=== PATIENT | male | born 1965 | race Caucasian/White ===

== ENCOUNTER → 2017-12-14 09:22 | Outpatient (CLI) | payer OTHER, SELFPAY ==
[2017-12-14 09:30] LABS: Bacteria 0 SEEN /hpf (None Seen); Mucous, Urine 0 SEEN /hpf (<or=2+); Squamous Epithelial Cells - UA 0 SEEN /hpf (0-5)
[2017-12-14 12:40] LABS: Absolute Lymphocyte Count 2.87 X10^3/ul (0.83-4.51); Absolute Neutrophil Count 2.9 X10^3/uL (2.0-7.7); Basophil# 0.03 X10^3/uL; Basophil% 0.5 % (0-1); Eosinophil# 0.11 X10^3/uL; Eosinophils% 1.8 % (0-5); Hemoglobin 15.3 g/dl (13.0-16.5); Lymphocyte # 2.87 X10^3/ul (4.0); Lymphocyte % 45.7 % (19-41); Mean Corp Hgb Conc 34.8 g/gl (32-36); Mean Corpuscular Hgb 32.1 pg (27.0-32.0); Mean Corpuscular Volume 92.2 fL (80-94); Mean Platelet Vol. 12.1 fl (6.2-12.0); Monocyte# 0.35 X10^3/uL; Monocyte% 5.6 % (0-10); Neutrophil % 46.1 % (47-70); Platelet Count 194 K/mm3 (150-450); RBC Distribution Width CV 12.7 % (11.6-14.6); RBC Distribution Width SD 42.5 fl (35.1-43.9); Red Blood Count 4.77 M/mm3 (4.6-6.2); White Blood Count 6.3 K/mm3 (4.4-11.0)
[2017-12-14 12:44] LABS: Color, Urine Yellow (Yellow); Glucose, Dipstick 1000 mg/dl (Normal); Ketone-Dipstick 15 mg/dl (Negative); Leukocyte Esterase-Dipstick Negative /ul (Negative); Nitrite-Dipstick Negative (Negative); Occult Blood-Urine 10 /ul (Negative); Protein-Dipstick 100 mg/dl (Negative); Specific Gravity, Urine 1.025 (1.002-1.030); Urine Bilirubin Dipstick Negative (Negative); Urine Clarity Clear (Clear); Urine Urobilinogen Normal (Normal)
[2017-12-14 13:06] LABS: Vitamin B12 248 pg/mL (211-911)
[2017-12-14 13:12] LABS: POSITIVE COUNT NO; POSITIVE DIFFERENTIAL NO; POSITIVE MORPHOLOGY NO
[2017-12-14 13:15] LABS: AST(SGOT) 21 U/L (15-37); Alanine Aminotransfer ALT/SGPT 43 U/L (16-61); Albumin, Serum 3.9 g/dL (3.2-5.0); Alkaline Phosphatase 86 U/L (45-117); Anion Gap 8 (5-15); BUN 16 mg/dL (7-18); Calcium,Total 8.9 mg/dL (8.5-10.1); Chloride 101 mmol/L (98-107); Cholesterol 139 mg/dL (200); Creatinine, Serum 0.89 mg/dL (0.70-1.30); EST Glomerular Filtration Rate 96 mL/min (>60); Est Glom Filt Rate - Afr Amer 116 mL/min (>60); Globulin 3.9 g/dL (2.2-4.2); Glucose 275 mg/dL (74-106); High Density Lipoprotein 23 mg/dL; PSA,Total - Annual Screen 0.81 ng/mL (0.00-4.00); Potassium 4.3 mmol/L (3.5-5.1); Protein, Total 7.8 g/dL (6.4-8.2); Sodium Level 137 mmol/L (136-145); Thyroid Stim Hormone (TSH) 2.68 uIU/mL (0.358-3.74); Triglycerides 792 mg/dL
[2017-12-14 13:27] LABS: Transitional Epithelial - Ur 0-5 SEEN /hpf (0-5); White Blood Cells 0-5 SEEN /hpf (0-5)
[2017-12-14 13:30] LABS: Red Blood Cells-Urine 0 SEEN /hpf (0-5)
[2017-12-14 13:55] LABS: Hemoglobin A1c 9.5 % (4.2-6.3)
[2017-12-14 13:57] LABS: Microalbumin:Creatinine Ratio 370.1 mg/g CRE (<30 mg/g CRE)
[2017-12-27 12:20] LABS: Vitamin B1, Thiamine 152.1 nmol/L (66.5-200.0)
== END ==
PROVIDERS: Family Provider Family Medicine; PCP Family Medicine; Visit Provider Family Medicine
DX: E11.9 Type 2 diabetes mellitus without complications (principal); E78.5 Hyperlipidemia, unspecified; I10 Essential (primary) hypertension; Z12.5 Encounter for screening for malignant neoplasm of prostate; G62.9 Polyneuropathy, unspecified
CPT/HCPCS: 80053; 80061; 81001; 82043; 82570; 82607; 83036; 84153; 84425; 84443; 85025; G0103

== ENCOUNTER → 2018-03-25 09:54 | Outpatient (CLI) | payer OTHER, SELFPAY ==
[2018-03-25 09:59] LABS: Bacteria 0 SEEN /hpf (None Seen); Mucous, Urine 0 SEEN /hpf (<or=2+); Red Blood Cells-Urine 0 SEEN /hpf (0-5); Squamous Epithelial Cells - UA 0 SEEN /hpf (0-5); White Blood Cells 0 SEEN /hpf (0-5)
[2018-03-25 13:00] LABS: Hemoglobin A1c 9.2 % (4.2-6.3); Vitamin B12 252 pg/mL (211-911)
[2018-03-25 13:10] LABS: Absolute Lymphocyte Count 3.56 X10^3/ul (0.83-4.51); Absolute Neutrophil Count 3.8 X10^3/uL (2.0-7.7); Basophil# 0.03 X10^3/uL; Basophil% 0.4 % (0-1); Eosinophil# 0.15 X10^3/uL; Eosinophils% 1.9 % (0-5); Hematocrit 42.5 % (40-54); Hemoglobin 14.1 g/dl (13.0-16.5); Lymphocyte # 3.56 X10^3/ul (4.0); Lymphocyte % 44.8 % (19-41); Mean Corp Hgb Conc 33.2 g/gl (32-36); Mean Corpuscular Hgb 31.1 pg (27.0-32.0); Mean Corpuscular Volume 93.8 fL (80-94); Mean Platelet Vol. 12.3 fl (6.2-12.0); Neutrophil % 47.8 % (47-70); Platelet Count 233 K/mm3 (150-450); RBC Distribution Width SD 44.4 fl (35.1-43.9); Red Blood Count 4.53 M/mm3 (4.6-6.2)
[2018-03-25 13:15] LABS: ALB/GLOB Ratio 1.1 RATIO (0.9-2.4); AST(SGOT) 16 U/L (15-37); Alanine Aminotransfer ALT/SGPT 33 U/L (16-61); Alkaline Phosphatase 53 U/L (45-117); Anion Gap 11 (5-15); BUN 17 mg/dL (7-18); BUN/Creat Ratio 18.6 RATIO (10-20); Calcium,Total 9.1 mg/dL (8.5-10.1); Chloride 104 mmol/L (98-107); Cholesterol 109 mg/dL (200); Creatinine, Serum 0.91 mg/dL (0.70-1.30); EST Glomerular Filtration Rate 93 mL/min (>60); Est Glom Filt Rate - Afr Amer 113 mL/min (>60); Globulin 3.8 g/dL (2.2-4.2); Glucose 130 mg/dL (74-106); High Density Lipoprotein 25 mg/dL; Phosphorus 3.4 mg/dL (2.5-4.9); Potassium 4.2 mmol/L (3.5-5.1); Protein, Total 7.8 g/dL (6.4-8.2); Sodium Level 142 mmol/L (136-145); Thyroid Stim Hormone (TSH) 4.12 uIU/mL (0.358-3.74); Triglycerides 157 mg/dL; Very Low Density Lipoprotein 31 mg/dL (5-40)
[2018-03-25 13:18] LABS: POSITIVE COUNT NO; POSITIVE DIFFERENTIAL NO; POSITIVE MORPHOLOGY NO
[2018-03-25 13:30] LABS: Microalbumin,Random Urine 82.9 mg/L (NO RANGE EST.); Microalbumin:Creatinine Ratio 42.7 mg/g CRE (<30 mg/g CRE)
[2018-03-25 14:17] LABS: Color, Urine Yellow (Yellow); Glucose, Dipstick Normal (Normal); Ketone-Dipstick Negative (Negative); Leukocyte Esterase-Dipstick Negative /ul (Negative); Nitrite-Dipstick Negative (Negative); Occult Blood-Urine Negative /ul (Negative); Protein-Dipstick 15 mg/dl (Negative); Specific Gravity, Urine 1.025 (1.002-1.030); Urine Bilirubin Dipstick Negative (Negative); Urine Clarity Sl. Cloudy (Clear); Urine Urobilinogen Normal (Normal)
[2018-03-28 08:17] LABS: Vitamin B1, Thiamine 124.2 nmol/L (66.5-200.0)
== END ==
PROVIDERS: Family Provider Family Medicine; PCP Family Medicine; Visit Provider Family Medicine
DX: E11.9 Type 2 diabetes mellitus without complications (principal); E78.5 Hyperlipidemia, unspecified; I10 Essential (primary) hypertension; Z12.5 Encounter for screening for malignant neoplasm of prostate; E11.40 Type 2 diabetes mellitus with diabetic neuropathy, unspecified
CPT/HCPCS: 36415; 80053; 80061; 81001; 82043; 82570; 82607; 83036; 84100; 84425; 84443; 85025

== ENCOUNTER → 2018-03-27 10:19 | Outpatient (CLI) | payer OTHER, SELFPAY ==
[2018-03-27 12:07] LABS: T4 Free Direct 0.92 ng/dL (0.76-1.46)
[2018-03-29 08:55] LABS: Anti-Thyroglobulin AB < 1.0 IU/mL (0.0-0.9); Thyroglobulin, Serum Qt. 29.1 ng/mL (1.4-29.2); Thyroid Peroxidase AB 10 IU/mL (0-34)
== END ==
PROVIDERS: Family Provider Family Medicine; PCP Family Medicine; Visit Provider Family Medicine
DX: R79.89 Other specified abnormal findings of blood chemistry (principal)
CPT/HCPCS: 36415; 84432; 84439; 86376; 86800

== ENCOUNTER → 2020-10-15 09:51 | Outpatient (CLI) | payer OTHER, SELFPAY ==
--- NOTE | 2020-10-15 09:55 | US_ITS ---
STUDY: RENAL ULTRASOUND - COMPLETE REASON FOR EXAM: Male, 55 years old. URINARY HESITANCY TECHNIQUE: Ultrasound evaluation of the kidneys was performed with real-time and static montgomery-scale imaging. COMPARISON: None. FINDINGS: RIGHT KIDNEY: Normal location of the right kidney, which is normal in size. The right kidney measures 13.8 cm x 6 cm x 5.4 cm. There is a normal cortex of the right kidney. The renal cortex measures 1.5 cm. There is no right renal mass or cyst. There are no right renal calculi. There is no right hydronephrosis. DISTAL RIGHT URETER: There is non-visualization of the distal right ureter. There is no demonstrated right ureterovesical junction calculus. There is a visualized right ureteral jet. LEFT KIDNEY: Normal location of the left kidney, which is normal in size. The left kidney measures 13.3 cm x 7.17 x 5.8 cm. There is a normal cortex of the left kidney. The renal cortex measures 2.5 cm. There is no left renal mass or cyst. There are no left renal calculi. There is no left hydronephrosis. DISTAL LEFT URETER: There is non-visualization of the distal left ureter. There is no demonstrated left ureterovesical junction calculus. There is a visualized left ureteral jet. BLADDER: The distended urinary bladder has a volume of 330 ml. The empty urinary bladder has a volume of 15 ml. There is a normal wall thickness of the distended urinary bladder. There is no demonstrated mass within the urinary bladder. There are no demonstrated bladder calculi. US/Kidney and Bladder IMPRESSION: Normal ultrasound of the kidneys and urinary bladder. Electronically Signed: Jd Chacon MD at 15:14 EDT , Service support ,
== END ==
PROVIDERS: PCP Nurse Practitioner; Referring Provider Nurse Practitioner; Visit Provider Nurse Practitioner
DX: R39.11 Hesitancy of micturition (principal)
CPT/HCPCS: 76770

== ENCOUNTER → 2021-04-05 10:54 | Outpatient (CLI) | payer OTHER, SELFPAY ==
[2021-04-05 12:41] LABS: ALB/GLOB Ratio 0.9 RATIO (0.9-2.4); AST(SGOT) 9 U/L (15-37); Alanine Aminotransfer ALT/SGPT 20 U/L (16-61); Albumin, Serum 3.8 g/dL (3.2-5.0); Alkaline Phosphatase 107 U/L (45-117); Anion Gap 3 (5-15); BUN 10 mg/dL (7-18); BUN/Creat Ratio 14.3 RATIO (10-20); Calcium,Total 9.3 mg/dL (8.5-10.1); Chloride 100 mmol/L (98-107); Cholesterol 189 mg/dL (200); EST Glomerular Filtration Rate 126 mL/min (>60); Est Glom Filt Rate - Afr Amer 152 mL/min (>60); Globulin 4.2 g/dL (2.2-4.2); Glucose 320 mg/dL (74-106); High Density Lipoprotein 34 mg/dL; Potassium 4.5 mmol/L (3.5-5.1); Sodium Level 135 mmol/L (136-145); T4 Free Direct 1.13 ng/dL (0.76-1.46); Thyroid Stim Hormone (TSH) 1.93 uIU/mL (0.358-3.74); Triglycerides 222 mg/dL; Very Low Density Lipoprotein 44 mg/dL (5-40)
[2021-04-05 15:53] LABS: Microalbumin:Creatinine Ratio 310.9 mg/g CRE (<30 mg/g CRE)
== END ==
PROVIDERS: PCP Nurse Practitioner; Referring Provider Internal Medicine Endocrinology, Diabetes & Metabolism; Visit Provider Internal Medicine Endocrinology, Diabetes & Metabolism
DX: E11.9 Type 2 diabetes mellitus without complications (principal); R94.6 Abnormal results of thyroid function studies
CPT/HCPCS: 36415; 80053; 80061; 82043; 82570; 84439; 84443

== ENCOUNTER 2021-07-05 18:51 | Inpatient (IN) | payer OTHER, SELFPAY ==
[2021-07-05] VITALS (14 sets, daily range): BP systolic 106–151; BP diastolic 67–92; PULSE 80–102; RESP 16–28; TEMP 36.6–38.3; O2SAT 73–92; BMI 33.8; BMI 32.4
--- NOTE | 2021-07-05 18:59 | EKG12_ITS ---
Test Reason : SOB Blood Pressure : / mmHG Vent. Rate : 100 BPM Atrial Rate : 100 BPM P-R Int : 144 ms QRS Dur : 110 ms QT Int : 348 ms P-R-T Axes : 053 -37 066 degrees QTc Int : 448 ms Normal sinus rhythm Left axis deviation Possible LAFB Poor R wave progression Abnormal ECG Confirmed by ANYA RUBI, IFTIKHAR ([id number]), online editor BRENT SHANNON ([id number]) on 07/11/2021 9:14:35 AM Referred By: ROSARIO Confirmed By:IFTIKHAR JOYNER MD
--- NOTE | 2021-07-05 18:59 | RAD_ITS ---
STUDY: X-RAY CHEST REASON FOR EXAM: Male, 56 years old. Cough TECHNIQUE: Single AP portable view of the chest. COMPARISON: None. FINDINGS: There are monitoring devices. There are moderate patchy airspace opacities of the bilateral lungs. There is no demonstrated pleural abnormality. Normal size heart. Normal mediastinum and viky. Normal visualized pulmonary arteries. Normal visualized aortic arch and descending thoracic aorta. Normal visualized thoracic spine. Normal visualized ribs, clavicles, and shoulders. There is no demonstrated abnormality of the visualized soft tissue structures of the upper abdomen. RAD/Chest 1 View (Portable) IMPRESSION: Bilateral pneumonia. Electronically Signed: Benny Messer MD at 21:08 EST , Service support ,
--- NOTE | 2021-07-05 19:00 | ED.VIS.DYS ---
HPI History of Present Illness Chief Complaint: Shortness of Breath Narrative Narrative: Patient presents from urgent care with low pulse ox with history of COVID-19. He has past medical history of diabetes and hypertension. He states he started feeling weak and tired on , approximately 6 days ago. He and his performed home Covid test on him on Sunday and it was positive. He denies any fever but states he has been more tired, fatigued, and short of breath with an occasional nonproductive cough. He also thinks that he lost taste and smell slightly. While he was at urgent care, his pulse ox was noted to be in the 70s. [facility] Medical History Abnormal results of thyroid function studies Benign hypertension Diabetes Microalbuminuria due to type 2 diabetes mellitus Obesity Home Medications Humalog Mix 50-50 KwikPen U-100 Insulin 100 unit/mL subcutaneous pen See Rx Instructions SUBCUT DAILY #15 ml NS 04/05/21 [Rx Last Taken Unknown] losartan 25 mg tablet tablet PO 04/05/21 [History Last Taken Unknown] metformin 1,000 mg tablet 1,000 mg PO BID #60 tab 04/05/21 [Rx Last Taken Unknown] metformin 500 mg tablet tablet PO 04/05/21 [History Last Taken Unknown] pen needle, diabetic 32 gauge x 32 #60 ea 04/05/21 [Rx Last Taken Unknown] simvastatin 10 mg tablet ea PO 04/05/21 [History Last Taken Unknown] Farxiga 10 mg tablet 10 mg PO DAILY #90 tab NS 05/06/21 [Rx Last Taken Unknown] Allergy/AdvReac Type Severity Reaction Status Date / Time No Known Allergies Allergy Verified 07/05/21 18:51 Social History Smoking Status: Never smoker alcohol intake: never substance use type: does not use what type of physical activity do you participate in: none ROS ROS ED ROS Narrative Constitutional: No fever, no chills. Fatigue, and tiredness. HEENT: No sore throat. No neck pain. No loss of vision. No rhinorrhea. Mild loss of taste and smell. Cardiovascular: No chest pain. No palpitations. No pedal edema. Respiratory: Occasional cough, positive shortness of breath. Abdominal: No abdominal pain. No nausea. No vomiting. Genitourinary: No dysuria. No hematuria. Musculoskeletal: No myalgias. No arthralgias. Neurologic: No headaches. No dizziness. No lightheadedness. Generalized weakness. Skin: No rash. No change in color. Psychiatric: No depression. No anxiety. EXAM Physical Exam Narrative Exam Narrative: Afebrile. Vital signs noted. HEENT: Normocephalic. Atraumatic. PERRL, EOMI. Neck soft and supple. No point tenderness or step off. Cardiovascular: Regular rate and rhythm. No murmurs, rubs, or gallops appreciated. Respiratory: No tachypnea. Lungs clear to auscultation bilaterally. Diminished breath sounds bilateral bases. Gastrointestinal: Abdomen soft, nontender, with normoactive bowel sounds. No rebound or guarding. Neurological: Awake. Alert. Oriented x3. Nonfocal, nonlateralizing. Skin: No rash. Normal color. No pallor. Musculoskeletal: No pedal edema. Full range of motion extremities. Const Vital Signs: 07/05/21 18:52 07/05/21 18:57 07/05/21 19:02 Temperature 98.9 F Temperature Source Temporal Pulse Rate 102 H Respiratory Rate 18 Respiratory Effort Short of Breath Labored Blood Pressure 151/86 H Blood Pressure Mean 107 Pulse Ox 73 84 Oxygen Delivery Method Room Air Nasal Cannula Nasal Cannula Oxygen Flow Rate (L/min) 11 11 07/05/21 19:28 07/05/21 19:35 07/05/21 19:40 Temperature 101 F H Temperature Source Oral Pulse Rate 94 Respiratory Rate 26 H 28 H 26 H Respiratory Effort Blood Pressure 128/92 H Blood Pressure Mean 104 Pulse Ox 87 90 91 Oxygen Delivery Method High Flow High Flow High Flow Oxygen Flow Rate (L/min) 11 15 15 07/05/21 20:32 07/05/21 20:38 07/05/21 20:40 Temperature 99.8 F H Temperature Source Oral Pulse Rate 91 Respiratory Rate 26 H 26 H 22 H Respiratory Effort Blood Pressure 119/70 Blood Pressure Mean 86 Pulse Ox 86 90 91 Oxygen Delivery Method Nasal Cannula Non-Rebreather Non-Rebreather Oxygen Flow Rate (L/min) 15 15 15 MDM MDM MDM Narrative Medical decision making narrative: Patient was placed on 10 L nasal cannula oxygen with resultant pulse ox in the mid 80s. Comprehensive work-up was pursued. EKG demonstrates sinus tachycardia at [address] changes. His Covid swab is positive. He has neutropenia at 4.0 consistent with Covid. Hemoglobin stable at 15.3, hematocrit 44.9. Platelet count normal at 211. There are atypical lymphocytes. His D-dimer is elevated at 1.19. Sodium slightly low at 134, chloride ninety-seven. He has normal creatinine of 0.96. Lactic acid is elevated at 2.8 as can be seen with Covid. His high-sensitivity troponin is negative at fourteen. He did spike a fever so he was administered Tylenol orally. His chest x-ray shows bilateral pneumonia. Given his elevated D-dimer and hypoxia, I obtained a CTA which shows no evidence of pulmonary embolism or dissection, a bilateral pneumonia. Per RN, he required being placed on a nonrebreather as his 15 L on high flow oxygen nasal cannula was showing his pulse ox in the 80s. He is now satting 91% to 92%. At this point in time, given his high oxygen demand and COVID-19, he had received Decadron 6 mg IV. He will be admitted after discussion with the hospitalist, Dr. Carrillo. Patient is in guarded condition. Lab Data Labs: Laboratory Results - last 24 hr 07/05/21 07/05/21 07/05/21 19:00 19:00 19:00 WBC 4.0 L RBC 4.95 Hgb 15.3 Hct 44.9 MCV 90.7 MCH 30.9 MCHC 34.1 RDW Std Deviation 39.9 RDW Coeff of Mamadou 12.1 Plt Count 211 MPV 10.7 Immature Gran % (Auto) 0.500 Neut % (Auto) 70.9 H Lymph % (Auto) 22.9 Blanco % (Auto) 5.5 Eos % (Auto) 0.0 Baso % (Auto) 0.2 Absolute Neuts (auto) 2.8 Absolute Lymphs (auto) 0.92 Nucleated RBC % 0 Atypical Lymphocytes RARE Platelet Estimate ADEQUATE RBC Morphology N CHROM Anisocytosis RARE Macrocytosis RARE D-Dimer Quant (PE/DVT) 1.19 H* Sodium 134 L Potassium 4.0 Chloride 97 L Carbon Dioxide 24.0 Anion Gap 13 BUN 16 Creatinine 0.96 Estim Creat Clear Calc 85.10 Est GFR (MDRD) Af Amer 105 Est GFR (MDRD) Non-Af 87 BUN/Creatinine Ratio 16.7 Glucose 112 H Lactic Acid Calcium 8.5 Total Bilirubin 0.50 AST 49 H ALT 22 Alkaline Phosphatase 67 Troponin I High Sens 14 Total Protein 8.1 Albumin 2.9 L Globulin 5.2 H Albumin/Globulin Ratio 0.6 L 07/05/21 19:00 WBC RBC Hgb Hct MCV MCH MCHC RDW Std Deviation RDW Coeff of Mamadou Plt Count MPV Immature Gran % (Auto) Neut % (Auto) Lymph % (Auto) Blanco % (Auto) Eos % (Auto) Baso % (Auto) Absolute Neuts (auto) Absolute Lymphs (auto) Nucleated RBC % Atypical Lymphocytes Platelet Estimate RBC Morphology Anisocytosis Macrocytosis D-Dimer Quant (PE/DVT) Sodium Potassium Chloride Carbon Dioxide Anion Gap BUN Creatinine Estim Creat Clear Calc Est GFR (MDRD) Af Amer Est GFR (MDRD) Non-Af BUN/Creatinine Ratio Glucose Lactic Acid 2.8 H* Calcium Total Bilirubin AST ALT Alkaline Phosphatase Troponin I High Sens Total Protein Albumin Globulin Albumin/Globulin Ratio ABG Data ABG results: ABG 07/05/21 19:11 Specimen Type ART Sample Site R Radial pH 7.44 Bicarbonate Actual 21.8 L Total CO2 23 Base Excess -2 O2 Saturation 91 L ABG pCO2 32.1 L ABG pO2 57 L Justin Test Positive O2 Delivery Device Cannula Liter Flow 11.0 Radiography Diagnostic Testing: Clinical Impression(s) from Imaging Studies Chest X-Ray 07/05/21 18:59 IMPRESSION: Bilateral pneumonia. Electronically Signed: Benny Messer MD at 21:08 EST , Service support , Chest CTA 07/05/21 20:04 IMPRESSION: CTA chest examination, without a demonstrated pulmonary embolism or arterial dissection. Bilateral pneumonia. Electronically Signed: Benny Messer MD at 21:15 EST , Service support , Critical Care Time Critical care time (excluding procedures): 30-74 minutes (32), Including time spent:, Discussing w/Patient &/or Family/School Childcare Attendant, Discussing w/Consultants and Arranging Admission or Transfer Discharge Plan Triage Chief Complaint: Shortness of Breath ED Provider: Brent Obregon Dx/Rx/DC Orders Prescriptions: No Action metformin 500 mg tablet PO RF: 0 simvastatin 10 mg tablet PO RF: 0 losartan 25 mg tablet PO RF: 0 Humalog Mix 50-50 KwikPen 100 unit/mL (50-50) insulin pen See Rx Instructions subcut DAILY Qty: 15 RF: 5 (DME) pen needle, diabetic [BD Ultra-Fine Eliana Pen Needle] 32 gauge x 5/32 needle See Rx Instructions .ROUTE .MEDSUPPLY Qty: 60 RF: 6 metformin 1,000 mg tablet 1,000 mg PO BID Qty: 60 RF: 6 Farxiga 10 mg tablet 10 mg PO DAILY Qty: 90 RF: 3 Primary Care Provider: Care Physician,No Primary
[2021-07-05 19:16] LABS: Allen Test Positive; Base Excess -2 mmol/L (-2 to +2); Bicarbonate 21.8 mmol/L (22-26); Blood Gas Specimen Type ART; O2 Delivery Device Cannula; PO2 57 mmHG (75-100); SITE R Radial; SO2 91 % (95-99); Total Carbon Dioxide 23 mmol/L; pCO2 32.1 mmHg (35-45); pH 7.44 (7.35-7.45)
[2021-07-05] MEDS: dexAMETHasone 10 MG/ML Vial 6 MG IV (19:39)
[2021-07-05 19:40] LABS: ALB/GLOB Ratio 0.6 RATIO (0.9-2.4); AST(SGOT) 49 U/L (15-37); Alanine Aminotransfer ALT/SGPT 22 U/L (16-61); Albumin, Serum 2.9 g/dL (3.2-5.0); Alkaline Phosphatase 67 U/L (45-117); Anion Gap 13 (5-15); BUN 16 mg/dL (7-18); BUN/Creat Ratio 16.7 RATIO (10-20); Calcium,Total 8.5 mg/dL (8.5-10.1); Chloride 97 mmol/L (98-107); Creatinine, Serum 0.96 mg/dL (0.70-1.30); EST Glomerular Filtration Rate 87 mL/min (>60); Est Glom Filt Rate - Afr Amer 105 mL/min (>60); Globulin 5.2 g/dL (2.2-4.2); Glucose 112 mg/dL (74-106); Protein, Total 8.1 g/dL (6.4-8.2); Sodium Level 134 mmol/L (136-145); Troponin-I HS 14 pg/mL (3.0-78.0)
[2021-07-05 19:50] LABS: Absolute Lymphocyte Count 0.92 X10^3/uL (0.83-4.51); Absolute Neutrophil Count 2.8 X10^3/uL (2.0-7.7); Basophil# 0.01 X10^3/uL; Basophil% 0.2 % (0-1); Hematocrit 44.9 % (40-54); Hemoglobin 15.3 g/dL (13.0-16.5); Lactic Acid 2.8 mmol/L (0.4-1.9); Lymphocyte # 0.92 X10^3/ul (0.83-4.51); Lymphocyte % 22.9 % (19-41); Mean Corp Hgb Conc 34.1 g/dL (32-36); Mean Corpuscular Hgb 30.9 pg (27.0-32.0); Mean Corpuscular Volume 90.7 fL (80-94); Mean Platelet Vol. 10.7 fl (6.2-12.0); Monocyte# 0.22 X10^3/uL; Monocyte% 5.5 % (0-10); NRBC Flagged by Analyzer 0 % (0-5); Neutrophil # 2.84 X10^3/uL (2.7-7.7); Neutrophil % 70.9 % (47-70); POSITIVE MORPHOLOGY YES; Platelet Count 211 K/mm3 (150-450); RBC Distribution Width CV 12.1 % (11.6-14.6); RBC Distribution Width SD 39.9 fl (35.1-43.9); Red Blood Count 4.95 M/mm3 (4.6-6.2)
[2021-07-05 20:00] LABS: Differential Indicated SCAN CRITERIA MET
[2021-07-05 20:03] LABS: D-Dimer Quantitative (DVT/PE) 1.19 FEU/ug/m (0.27-0.49)
--- NOTE | 2021-07-05 20:04 | CT_ITS ---
STUDY: CTA CHEST REASON FOR EXAM: Male, 56 years old. Hypoxia RADIATION DOSAGE (If Supplied By Facility): CTDIvol = ( 11.42 ) mGy, DLP = (497.19 ) mGycm TECHNIQUE: The examination was performed with the intravenous administration of 100mL Isovue-370. Post-processing of the angiographic images was performed, with multiplanar reformation and 3D reconstruction. Individualized dose optimization techniques were used for this CT. COMPARISON: Chest x-ray FINDINGS: Normal enhancement of the main pulmonary artery and right and left pulmonary arteries. There is limited enhancement of the bilateral peripheral pulmonary arteries. There is no demonstrated pulmonary embolism. Normal thoracic aorta and visualized great vessels. There is no demonstrated aortic dissection. Normal heart and pericardium. Normal mediastinum. Normal hilar regions. Normal visualized trachea and bronchi. The lungs are well expanded. There are moderately severe patchy groundglass and airspace opacities of the lungs. Normal pleura. Normal chest wall structures. There are degenerative changes of thoracic spine. There is moderate splenomegaly. CT/CTA Chest W/WO Contrast IMPRESSION: CTA chest examination, without a demonstrated pulmonary embolism or arterial dissection. Bilateral pneumonia. Electronically Signed: Benny Messer MD at 21:15 EST , Service support ,
[2021-07-05] MEDS: Acetaminophen 325 MG Tablet 650 MG PO (20:30)
[2021-07-05 20:49] LABS: Platelet Estimate ADEQUATE (ADEQ); Red Cell Morphology N CHROM NORMAL (NORM C&C)
[2021-07-05 20:50] LABS: Anisocytosis RARE; Atypical Lymphocyte RARE %; Macrocytosis RARE
--- NOTE | 2021-07-05 22:01 | HP.PCM.HOS_ITS ---
HPI - General General Date of Admission: 07/05/21 HPI Narrative BRET FISHMAN, is a 56 M with a significant history of hypertension and diabetes mellitus who presents with Covid-like symptoms. His symptoms started around June. His symptoms has progressively been worsening. He describes his symptoms as lethargy, fatigue, headache, shortness of breath, dry cough, dysgeusia. He is unsure of anosmia. He reports muscle aches. On the day of presentation he went to the urgent care and his temperature at the urgent care was about 101 Fahrenheit. Also his oxygen saturation at the urgent care was in the 70s. At the emergency department patient required a nonrebreather mask Patient is unvaccinated against COVID-19 virus. [facility] Medical History Abnormal results of thyroid function studies Benign hypertension Diabetes Microalbuminuria due to type 2 diabetes mellitus Obesity Home Medications losartan 25 mg tablet 25 tablet PO DAILY 04/05/21 [History Last Taken Unknown] pen needle, diabetic 32 gauge x 32 #60 ea 04/05/21 [Rx Last Taken Unknown] simvastatin 10 mg tablet 10 ea PO DAILY 04/05/21 [History Last Taken Unknown] dapagliflozin [Farxiga] 10 mg PO DAILY 07/05/21 [History Last Taken Unknown] insulin lispro protamin-lispro [Humalog Mix 50-50 KwikPen] See Rx Instructions SUBCUT DAILY 07/05/21 [History Last Taken Unknown] metformin 1,000 mg PO BID 07/05/21 [History Last Taken Unknown] Allergy/AdvReac Type Severity Reaction Status Date / Time No Known Allergies Allergy Verified 07/05/21 18:51 Family History Other Cancer Diabetes Surgical History no surgical history no surgical history Social History Smoking Status: Never smoker alcohol intake: never substance use type: does not use what type of physical activity do you participate in: none ROS ROS Narrative Constitutional: Reports fever, chills, fatigue, anorexia. Denies change in weight Eyes: Denies blurry vision, change in eye color, change in vision, discharge from eye(s), double vision, erythema, eye pain, loss of vision or other HEENT: Denies abnormal hearing, dysphagia, ear pain, epistaxis, headache(s), hearing loss, nasal congestion, nasal discharge, post nasal drip, sinus pressure, sore throat or other Cardiovascular: Denies chest pain or palpitations. Denies dyspnea on exertion, orthopnea and paroxysmal nocturnal dyspnea Respiratory/Chest: Reports SOB and cough. Gastrointestinal: Denies abdominal pain, coffee ground emesis, constipation, diarrhea, dyspepsia, hematemesis, hematochezia, loose stools, melena, nausea, vomiting or other Genitourinary: Denies burning urination, difficulty urinating, dysuria, h ematuria, nocturia, urinary frequency, urinary hesitancy, urinary incontinence, urinary urgency or other Musculoskeletal: Denies arthralgias, back pain, joint pain, joint stiffness, joint swelling, myalgias, neck pain or other Neurologic: Denies abnormal gait, abnormal speech, confusion, disequilibrium, dizziness, focal weakness, headache(s), numbness, paresthesias, seizure-like activity, seizures, syncope, tingling, tremor(s) or other Psychiatric: Denies anxiety, depression, homicidal ideation, suicidal ideation or other Endocrinology: Denies change in body appearance, cold intolerance, excessive sweating, heat intolerance, polydipsia, polyuria or other Hematologic/Lymphatic: Denies anemia, easy bleeding, easy bruising, lymphadenopathy or other Integumentary: Denies rashes Allergic/Immunologic: Denies rhinitis, hives, eczema, asthma or other Vital Signs Vital Signs Vital Signs: 07/05/21 18:52 07/05/21 18:57 07/05/21 19:02 Temperature 98.9 F Temperature Source Temporal Pulse Rate 102 H Respiratory Rate 18 Respiratory Effort Short of Breath Labored Blood Pressure 151/86 H Blood Pressure Mean 107 Pulse Ox 73 84 Oxygen Delivery Method Room Air Nasal Cannula Nasal Cannula Oxygen Flow Rate (L/min) 11 11 07/05/21 19:28 07/05/21 19:35 07/05/21 19:40 Temperature 101 F H Temperature Source Oral Pulse Rate 94 Respiratory Rate 26 H 28 H 26 H Respiratory Effort Blood Pressure 128/92 H Blood Pressure Mean 104 Pulse Ox 87 90 91 Oxygen Delivery Method High Flow High Flow High Flow Oxygen Flow Rate (L/min) 11 15 15 07/05/21 20:32 07/05/21 20:38 07/05/21 20:40 Temperature 99.8 F H Temperature Source Oral Pulse Rate 91 Respiratory Rate 26 H 26 H 22 H Respiratory Effort Blood Pressure 119/70 Blood Pressure Mean 86 Pulse Ox 86 90 91 Oxygen Delivery Method Nasal Cannula Non-Rebreather Non-Rebreather Oxygen Flow Rate (L/min) 15 15 15 Weight Weight: 101 kg Body Mass Index (BMI) 33.8 Physical Exam Narrative Physical exam: General: Well-nourished, well-developed. Head: Normocephalic, atraumatic, no tenderness Eyes: PERRLA, EOMI ENT, no trauma, moist mucous membranes, no rhinorrhea Neck: Nontender, full range of motion, no spinal tenderness, deformities, step- off CVS: Regular rate and rhythm. S1-S2 present. No murmur, gallop or rub. Respiratory : Tachypnea; using accessory muscles of respiration; Rales. Abdomen: Soft, nontender, nondistended, normal bowel sounds, no masses : Deferred Back: Nontender, no CVA tenderness, no midline spinal tenderness, deformities, step-offs Extremities: Nontender full range of motion, no trauma Skin: Normal color, no trauma, abrasions Neuro: Alert, oriented, cranial nerves II through XII grossly intact. Psychiatry: Normal mood. Normal affect. Not depressed. Not anxious. Results Lab / Micro Data Result Diagrams: 07/05/21 19:00 07/05/21 19:00 Labs: Laboratory Results - last 24 hr 07/05/21 19:00: WBC 4.0 L, RBC 4.95, Hgb 15.3, Hct 44.9, MCV 90.7, MCH 30.9, MCHC 34.1, RDW Std Deviation 39.9, RDW Coeff of Mamadou 12.1, Plt Count 211, MPV 10.7, Immature Gran % (Auto) 0.500, Neut % (Auto) 70.9 H, Lymph % (Auto) 22.9, [place] % (Auto) 5.5, Eos % (Auto) 0.0, Baso % (Auto) 0.2, Absolute Neuts (auto) 2.8, Absolute Lymphs (auto) 0.92, Nucleated RBC % 0, Atypical Lymphocytes RARE, Platelet Estimate ADEQUATE, RBC Morphology N CHROM, Anisocytosis RARE, Macrocytosis RARE 07/05/21 19:00: D-Dimer Quant (PE/DVT) 1.19 H* 07/05/21 19:00: Sodium 134 L, Potassium 4.0, Chloride 97 L, Carbon Dioxide 24.0, Anion Gap 13, BUN 16, Creatinine 0.96, Estim Creat Clear Calc 85.10, Est GFR (MDRD) Af Amer 105, Est GFR (MDRD) Non-Af 87, BUN/Creatinine Ratio 16.7, Glucose 112 H, Calcium 8.5, Total Bilirubin 0.50, AST 49 H, ALT 22, Alkaline Phosphatase 67, Troponin I High Sens 14, Total Protein 8.1, Albumin 2.9 L, Globulin 5.2 H, Albumin/Globulin Ratio 0.6 L 07/05/21 19:00: Lactic Acid 2.8 H* Micro: Microbiology 07/05/21 19:10 Nasal Secretion SARS-CoV-2 Antigen (Rapid) - Final SARS-CoV-2 (COVID 19) ABG Data ABG results: ABG 07/05/21 19:11 Specimen Type ART Sample Site R Radial pH 7.44 Bicarbonate Actual 21.8 L Total CO2 23 Base Excess -2 O2 Saturation 91 L ABG pCO2 32.1 L ABG pO2 57 L Justin Test Positive O2 Delivery Device Cannula Liter Flow 11.0 Radiology Impression Chest X-Ray 07/05/21 18:59 IMPRESSION: Bilateral pneumonia. Electronically Signed: Benny Messer MD at 21:08 EST , Service support , Chest CTA 07/05/21 20:04 IMPRESSION: CTA chest examination, without a demonstrated pulmonary embolism or arterial dissection. Bilateral pneumonia. Electronically Signed: Benny Messer MD at 21:15 EST , Service support , Assessment & Plan Assessment/Plan (1) Respiratory failure: QUALIFIERS: Chronicity: acute Respiratory failure complication: hypoxia Qualified Code(s): J96.01 - Acute respiratory failure with hypoxia (2) Pneumonia due to COVID-19 virus: (3) Obesity: QUALIFIERS: Body mass index: BMI 33.0-33.9 Obesity classification: adult class 1 (BMI 30 - 34.9) Obesity type: due to excess calories Serious obesity comorbidity presence: with serious comorbidity Qualified Code(s): E66.09 - Other obesity due to excess calories; Z68.33 - Body mass index [BMI] 33.0-33.9, adult (4) Diabetes: QUALIFIERS: Diabetes mellitus complication status: with hyperglycemia Diabetes mellitus [employer] insulin use: without alf use Diabetes mellitus type: type 2 Qualified Code(s): E11.65 - Type 2 diabetes mellitus with hyperglycemia PLAN: Acute hypoxemic respiratory failure secondary to SARS- COV 2 Patient oxygen saturation was 73% on room air at the emergency department. Patient was initially placed on high flow oxygen and then was placed on nonrebreather mask. Continue oxygen supplementation. Titrate as necessary. Positive coronavirus test outpatient. Chest x-ray and chest CT was independently interpreted and I agree with radiologist interpretation of bilateral pneumonia. D-dimer was elevated at 1.19; left second inflammation from Covid. Procalcitonin was ordered. Received dexamethasone IV at emergency department. Decadron p.o. ordered. The creatinine clearance is more than 30. AST is mildly elevated at 49. ALT is normal. Liver enzymes appropriate for remdesivir. Remdesivir ordered. Trend CBC and CMP. Lactic acid is elevated at 2.8 likely secondary to hypoxemia and from Metformin use. Trend lactic acid. Tylenol for fever Mucinex ordered Diabetes mellitus Patient with mild hyperglycemia on presentation Basal insulin and Dapagliflozin continued. Hold Metformin. Accu-Chek QA CHS with correction scale insulin ordered. Hypertension Blood pressure is within goal Cozaar continued. Trend blood pressure and adjust blood pressure medications. DVT Prophylaxis: Subcutaneous Lovenox ordered. Charges/Coding Visit Charges Inpatient E&M: 18205 Init Hosp L3
[2021-07-05 23:06] LABS: Reflex Lactate? Y
[2021-07-06] VITALS (18 sets, daily range): BP systolic 107–129; BP diastolic 78–84; PULSE 62–102; RESP 12–33; TEMP 35.8–37.2; O2SAT 87–96
[2021-07-06] MEDS: Enoxaparin 40 MG/0.4 ML Syringe SC ×3 (00:28→20:51)
[2021-07-06] MEDS: guaiFENesin 1,200 MG Tablet 1200 MG PO ×3 (00:28→20:51)
[2021-07-06 00:40] LABS: Lactic Acid 0.9 mmol/L (0.4-1.9)
[2021-07-06 00:45] LABS: Procalcitonin 0.29 ng/mL (0.00-0.09)
[2021-07-06] MEDS: Insulin Lispro 100 UNIT/ML INSULN.PEN SC ×5 (00:49→20:51)
--- NOTE | 2021-07-06 01:05 | NURSING ---
admission completed. pt is alert x 3 & denies c/o pain. no s/s of resp distress. remains on NRB with 02 saturations noted at 87-89%. RT paged, will be placing pt on BIPAP. pt updated on plan.
[2021-07-06 01:41] LABS: Bedside Glucose 193 mg/dL (70-110)
--- NOTE | 2021-07-06 01:55 | NURSING ---
ASLEEP WITH BIPAP ON @ 100%. 02 SATS NOTED AT 97%. WILL CONTINUE TO MONITOR
[2021-07-06 06:50] LABS: Bedside Glucose 208 mg/dL (70-110)
[2021-07-06 07:04] LABS: Absolute Lymphocyte Count 0.58 X10^3/uL (0.83-4.51); Absolute Neutrophil Count 2.1 X10^3/uL (2.0-7.7); Basophil# 0.01 X10^3/uL; Basophil% 0.3 % (0-1); Hematocrit 43.1 % (40-54); Hemoglobin 14.5 g/dL (13.0-16.5); Lymphocyte # 0.58 X10^3/ul (0.83-4.51); Lymphocyte % 20.3 % (19-41); Mean Corp Hgb Conc 33.6 g/dL (32-36); Mean Corpuscular Hgb 30.6 pg (27.0-32.0); Mean Corpuscular Volume 90.9 fL (80-94); Mean Platelet Vol. 10.4 fl (6.2-12.0); Monocyte# 0.18 X10^3/uL; Monocyte% 6.3 % (0-10); NRBC Flagged by Analyzer 0 % (0-5); Neutrophil # 2.06 X10^3/uL (2.7-7.7); Neutrophil % 72.1 % (47-70); POSITIVE DIFFERENTIAL YES; POSITIVE MORPHOLOGY YES; Platelet Count 212 K/mm3 (150-450); RBC Distribution Width CV 12.1 % (11.6-14.6); RBC Distribution Width SD 40.7 fl (35.1-43.9); Red Blood Count 4.74 M/mm3 (4.6-6.2); White Blood Count 2.9 K/mm3 (4.4-11.0)
[2021-07-06 07:08] LABS: Differential Indicated SCAN CRITERIA MET
[2021-07-06 07:26] LABS: ALB/GLOB Ratio 0.5 RATIO (0.9-2.4); AST(SGOT) 45 U/L (15-37); Alanine Aminotransfer ALT/SGPT 25 U/L (16-61); Albumin, Serum 2.6 g/dL (3.2-5.0); Alkaline Phosphatase 59 U/L (45-117); Anion Gap 11 (5-15); BUN 23 mg/dL (7-18); Calcium,Total 8.2 mg/dL (8.5-10.1); Chloride 99 mmol/L (98-107); Creatinine, Serum 0.96 mg/dL (0.70-1.30); EST Glomerular Filtration Rate 87 mL/min (>60); Est Glom Filt Rate - Afr Amer 105 mL/min (>60); Globulin 4.9 g/dL (2.2-4.2); Glucose 217 mg/dL (74-106); Potassium 3.9 mmol/L (3.5-5.1); Protein, Total 7.5 g/dL (6.4-8.2); Sodium Level 137 mmol/L (136-145)
--- NOTE | 2021-07-06 09:09 | PN.HOSP_ITS ---
Subjective Subjective Follow-up on acute respiratory failure/Acute COVID-19 pneumonia: Patient was seen and examined. Overnight, he was put on BiPAP. He was on average time of being seen. Complains of shortness of breath at rest. Objective Data Objective Data Vital Signs: Vital Signs Temp Pulse Resp BP Pulse Ox 98.9 F 75 16 107/78 93 07/06/21 03:48 07/06/21 05:28 07/06/21 05:14 07/06/21 03:48 07/06/21 04:05 Oxygen Flow Rate (L/min) 15 Oxygen Delivery Method Bi-pap Weight: 96.7 kg Body Mass Index (BMI) 32.4 Intake & Output: Intake and Output for Last 24 Hours 07/04/21 07/05/21 07/06/21 23:59 23:59 23:59 Intake Total 250 / 250 Output Total 500 / 500 Balance -250 / -250 Lab / Micro Data Result Diagrams: 07/06/21 06:40 07/06/21 06:40 Labs: Laboratory Results - last 24 hr 07/05/21 19:00: WBC 4.0 L, RBC 4.95, Hgb 15.3, Hct 44.9, MCV 90.7, MCH 30.9, MCHC 34.1, RDW Std Deviation 39.9, RDW Coeff of Mamadou 12.1, Plt Count 211, MPV 10.7, Immature Gran % (Auto) 0.500, Neut % (Auto) 70.9 H, Lymph % (Auto) 22.9, [place] % (Auto) 5.5, Eos % (Auto) 0.0, Baso % (Auto) 0.2, Absolute Neuts (auto) 2.8, Absolute Lymphs (auto) 0.92, Nucleated RBC % 0, Atypical Lymphocytes RARE, Platelet Estimate ADEQUATE, RBC Morphology N CHROM, Anisocytosis RARE, Macrocyto sis RARE 07/05/21 19:00: D-Dimer Quant (PE/DVT) 1.19 H* 07/05/21 19:00: Sodium 134 L, Potassium 4.0, Chloride 97 L, Carbon Dioxide 24.0, Anion Gap 13, BUN 16, Creatinine 0.96, Estim Creat Clear Calc 85.10, Est GFR (MDRD) Af Amer 105, Est GFR (MDRD) Non-Af 87, BUN/Creatinine Ratio 16.7, Glucose 112 H, Calcium 8.5, Total Bilirubin 0.50, AST 49 H, ALT 22, Alkaline Phosphatase 67, Troponin I High Sens 14, Total Protein 8.1, Albumin 2.9 L, Globulin 5.2 H, Albumin/Globulin Ratio 0.6 L 07/05/21 19:00: Lactic Acid 2.8 H* 07/06/21 00:00: Lactic Acid 0.9 07/06/21 00:00: Procalcitonin 0.29 H 07/06/21 00:48: POC Glucose 193 H 07/06/21 06:40: WBC 2.9 L, RBC 4.74, Hgb 14.5, Hct 43.1, MCV 90.9, MCH 30.6, MCHC 33.6, RDW Std Deviation 40.7, RDW Coeff of Mamadou 12.1, Plt Count 212, MPV 10.4, Immature Gran % (Auto) 1.000 H, Neut % (Auto) 72.1 H, Lymph % (Auto) 20.3, [place] % (Auto) 6.3, Eos % (Auto) 0.0, Baso % (Auto) 0.3, Absolute Neuts (auto) 2.1, Absolute Lymphs (auto) 0.58 L, Nucleated RBC % 0, Diff Path Review November07/06/21 06:40: Sodium 137, Potassium 3.9, Chloride 99, Carbon Dioxide 27.0, Anion Gap 11, BUN 23 H, Creatinine 0.96, Estim Creat Clear Calc 85.10, Est GFR (MDRD) Af Amer 105, Est GFR (MDRD) Non-Af 87, BUN/Creatinine Ratio 24.0 H, Glucose 217 H, Calcium 8.2 L, Total Bilirubin 0.40, AST 45 H, ALT 25, Alkaline Phosphatase 59, Total Protein 7.5, Albumin 2.6 L, Globulin 4.9 H, Albumi n/Globulin Ratio 0.5 L 07/06/21 06:41: POC Glucose 208 H Micro: Microbiology 07/05/21 19:10 Nasal Secretion SARS-CoV-2 Antigen (Rapid) - Final SARS-CoV-2 (COVID 19) ABG Data ABG results: ABG 07/05/21 19:11 Specimen Type ART Sample Site R Radial pH 7.44 Bicarbonate Actual 21.8 L Total CO2 23 Base Excess -2 O2 Saturation 91 L ABG pCO2 32.1 L ABG pO2 57 L Justin Test Positive O2 Delivery Device Cannula Liter Flow 11.0 Radiography Diagnostic Testing: Radiology Impression Chest X-Ray 07/05/21 18:59 IMPRESSION: Bilateral pneumonia. Electronically Signed: Benny Messer MD at 21:08 EST , Service support , Chest CTA 07/05/21 20:04 IMPRESSION: CTA chest examination, without a demonstrated pulmonary embolism or arterial dissection. Bilateral pneumonia. Electronically Signed: Benny Messer MD at 21:15 EST , Service support , Physical Exam Narrative Physical exam: General: Alert, Oriented x3, Cooperative, No apparent distress, Well developed HEENT: Atraumatic Oral: Moist Mucosa Neck: Supple Lungs: Clear to auscultation Cardiovascular: HS I+II, regular, no murmurs Abdomen: Bowel Sounds Present, Soft, Non Tender Extremities: No edema Assessment & Plan Assessment/Plan (1) Respiratory failure: QUALIFIERS: Chronicity: acute Respiratory failure complication: hypoxia Qualified Code(s): J96.01 - Acute respiratory failure with hypoxia (2) Pneumonia due to COVID-19 virus: (3) Obesity: QUALIFIERS: Body mass index: BMI 33.0-33.9 Obesity classification: adult class 1 (BMI 30 - 34.9) Obesity type: due to excess calories Serious obesity comorbidity presence: with serious comorbidity Qualified Code(s): E66.09 - Other obesity due to excess calories; Z68.33 - Body mass index [BMI] 33.0-33.9, adult (4) Microalbuminuria due to type 2 diabetes mellitus: (5) Benign hypertension: PLAN: 1. Acute hypoxic respiratory failure secondary to acute COVID-19 pneumonia Patient is currently on Airvo/BiPAP Patient is not vaccinated Admitting chest x-ray showed bilateral infiltrates. CTA chest showed no acute PE Continue on remdesivir, dexamethasone Started on baricitinib by ID Pulmonary consult 2. Type II DM, blood glucose is fairly controlled Continue on Jardiance, Humalog 50-50, insulin sliding scale with blood glucose checks 3. Rest of his chronic medical conditions including hypertension/hyperlipidemia/obesity remained stable Continue on losartan, atorvastatin Charges/Coding Visit Charges Inpatient E&M: 75577 Subs Hosp L3
[2021-07-06] MEDS: dexAMETHasone 4 MG Tablet 6 MG PO (09:12)
[2021-07-06] MEDS: Losartan Potassium 25 MG Tablet PO (09:12)
[2021-07-06] MEDS: Empagliflozin 25 MG Tablet PO (09:13)
[2021-07-06] MEDS: Furosemide 40 MG/4 ML Vial IV (09:17)
[2021-07-06] MEDS: 0.9% Saline Lock 10 ML Syringe IV (09:19)
--- NOTE | 2021-07-06 10:33 | CON.PCM.ID_ITS ---
Assessment & Plan Assessment/Plan (1) Pneumonia due to COVID-19 virus: PLAN: At this time we will continue dexamethasone low-dose 6 mg IV daily. We will also continue remdesivir and DVT prophylaxis. I did talk to the patient in regards of the use of baricitinib as a immunomodulating agent for severe Covid pneumonia, patient is agreeable to this agent. We will start 4 mg p.o. daily of barcitinib this morning. HPI Consult Data Date of Consult: 07/06/21 HPI Narrative HPI Narrative: BRET FISHMAN, is a 56 M who presents Increasing shortness of breath and cough over the past 6 days. Patient is found to be COVID-19 positive and markedly hypoxic. He was found to be Covid 19+ with bilateral infiltrates on chest film.Patient is currently on noninvasive ventilatory support with a BiPAP machine. He denies any pleuritic chest pain nor hemoptysis. No gastrointestinal distress. Patient himself has not had a COVID-19 vaccination. Patient was started on low-dose dexamethasone as well as low molecular weight heparin for DVT prophylaxis as well as remdesivir. Patient does have underlying diabetes mellitus, obesity, hypertension. [facility] Medical History Abnormal results of thyroid function studies Benign hypertension Diabetes Microalbuminuria due to type 2 diabetes mellitus Obesity Home Medications losartan 25 mg tablet 25 tablet PO DAILY 04/05/21 [History Last Taken Unknown] pen needle, diabetic 32 gauge x #60 ea 04/05/21 [Rx Last Taken Unknown] simvastatin 10 mg tablet 10 ea PO DAILY 04/05/21 [History Last Taken Unknown] dapagliflozin [Farxiga] 10 mg PO DAILY 07/05/21 [History Last Taken Unknown] insulin lispro protamin-lispro [Humalog Mix 50-50 KwikPen] See Rx Instructions SUBCUT DAILY 07/05/21 [History Last Taken Unknown] metformin 1,000 mg PO BID 07/05/21 [History Last Taken Unknown] Allergy/AdvReac Type Severity Reaction Status Date / Time No Known Allergies Allergy Verified 07/05/21 18:51 Family History Other Cancer Diabetes Surgical History no surgical history Social History Smoking Status: Never smoker alcohol intake: never substance use type: does not use what type of physical activity do you participate in: none Physical Exam Narrative Patient is alert responsive on the BiPAP machine. Lungs with some scattered rhonchi heart exam S1-S2 abdomen is obese but soft. No skin lesions. Lab / Micro Data Result Diagrams: 07/06/21 06:40 07/06/21 06:40 Labs: Laboratory Results - last 24 hr 07/05/21 19:00: WBC 4.0 L, RBC 4.95, Hgb 15.3, Hct 44.9, MCV 90.7, MCH 30.9, MCHC 34.1, RDW Std Deviation 39.9, RDW Coeff of Mamadou 12.1, Plt Count 211, MPV 10.7, Immature Gran % (Auto) 0.500, Neut % (Auto) 70.9 H, Lymph % (Auto) 22.9, [place] % (Auto) 5.5, Eos % (Auto) 0.0, Baso % (Auto) 0.2, Absolute Neuts (auto) 2.8, Absolute Lymphs (auto) 0.92, Nucleated RBC % 0, Atypical Lymphocytes RARE, Platelet Estimate ADEQUATE, RBC Morphology N CHROM, Anisocytosis RARE, Mac rocytosis RARE 07/05/21 19:00: D-Dimer Quant (PE/DVT) 1.19 H* 07/05/21 19:00: Sodium 134 L, Potassium 4.0, Chloride 97 L, Carbon Dioxide 24.0, Anion Gap 13, BUN 16, Creatinine 0.96, Estim Creat Clear Calc 85.10, Est GFR (MDRD) Af Amer 105, Est GFR (MDRD) Non-Af 87, BUN/Creatinine Ratio 16.7, Glucose 112 H, Calcium 8.5, Total Bilirubin 0.50, AST 49 H, ALT 22, Alkaline Phosphatase 67, Troponin I High Sens 14, Total Protein 8.1, Albumin 2.9 L, Globulin 5.2 H, Albumin/Globulin Ratio 0.6 L 07/05/21 19:00: Lactic Acid 2.8 H* 07/06/21 00:00: Lactic Acid 0.9 07/06/21 00:00: Procalcitonin 0.29 H 07/06/21 00:48: POC Glucose 193 H 07/06/21 06:40: WBC 2.9 L, RBC 4.74, Hgb 14.5, Hct 43.1, MCV 90.9, MCH 30.6, MCHC 33.6, RDW Std Deviation 40.7, RDW Coeff of Mamadou 12.1, Plt Count 212, MPV 10.4, Immature Gran % (Auto) 1.000 H, Neut % (Auto) 72.1 H, Lymph % (Auto) 20.3, [place] % (Auto) 6.3, Eos % (Auto) 0.0, Baso % (Auto) 0.3, Absolute Neuts (auto) 2.1, Absolute Lymphs (auto) 0.58 L, Nucleated RBC % 0, Diff Path Review November07/06/21 06:40: Sodium 137, Potassium 3.9, Chloride 99, Carbon Dioxide 27.0, Anion Gap 11, BUN 23 H, Creatinine 0.96, Estim Creat Clear Calc 85.10, Est GFR (MDRD) Af Amer 105, Est GFR (MDRD) Non-Af 87, BUN/Creatinine Ratio 24.0 H, Glucose 217 H, Calcium 8.2 L, Total Bilirubin 0.40, AST 45 H, ALT 25, Alkaline Phosphatase 59, Total Protein 7.5, Albumin 2.6 L, Globulin 4.9 H, Albumin/Globulin Ratio 0.5 L 07/06/21 06:41: POC Glucose 208 H Micro: Microbiology 07/05/21 19:10 Nasal Secretion SARS-CoV-2 Antigen (Rapid) - Final SARS-CoV-2 (COVID 19) ABG Data ABG results: ABG 07/05/21 19:11 Specimen Type ART Sample Site R Radial pH 7.44 Bicarbonate Actual 21.8 L Total CO2 23 Base Excess -2 O2 Saturation 91 L ABG pCO2 32.1 L ABG pO2 57 L Justin Test Positive O2 Delivery Device Cannula Liter Flow 11.0 Radiology Impression Chest X-Ray 07/05/21 18:59 IMPRESSION: Bilateral pneumonia. Electronically Signed: Benny Messer MD at 21:08 EST , Service support , Chest CTA 07/05/21 20:04 IMPRESSION: CTA chest examination, without a demonstrated pulmonary embolism or arterial dissection. Bilateral pneumonia. Electronically Signed: Benny Messer MD at 21:15 EST , Service support ,
--- NOTE | 2021-07-06 11:10 | CASEMGMT ---
PADDY TOUSSAINT Assessment: Face to Face with pt for initial transition planning/care coordination assessment. PADDY TOUSSAINT introduced self and role at [facility], pt voices understanding and consents to assessment. Pt is A/O x4 and answers all questions appropriately at this time. Pt sitting up in bed with BIPAP on in no distress. Care providers, pharmacy, and demographics verified/updated. Admitting Dx: Acute hypoxemic resp failure secondary to COVID 19 PCP:Pt denies having PCP. Provided pt with local healthcare directory pamphlet. Specialists:aram Wynn Pharmacy: [facility] Insurance: [facility] Prescription Benefit: yes LW/HPOA: Pt denies having a LW/DPOA and denies need for info regarding AD. LNOK: Gaby Kim, Living Arrangements: Pt lives with and dtr in a mobile home with 3-5 steps to enter with a rail. Pt reports he was I in ADL's and denies concerns at home. Transportation: Pt drives self and denies concerns with transportation. DME/HHC/SNF: Pt has a BGM at home with supplies and he checks his blood sugars twice a day. Recommend pt obtain a pulse ox. Pt denies previous HHC or SNF stays. Pt was first tested for COVID at [facility]. Pt has already been quarantining from and dtr using separate bedrooms and bathrooms as he had done a home test prior. Pt has family who can provide him with groceries and supplies. Verbally gave pt a local in network list of DME companies should pt need home O2, pt denies preference. Pt states no concerns with going home at time of dc. Pt states no further concerns/needs. CM to follow. Advised pt to ask CM if any further question/concerns/needs arise, voices understanding. Pt Goal: Home Plan: Home
--- NOTE | 2021-07-06 11:16 | CHAPLAIN ---
Type of Pastoral Visit _x__ Initial Visit ___ Follow-up Visit ___ On-call Visit ___ General Patient Visit ___ Spiritual Assessment ___ Family Conference ___ Bereavement ___ Rapid Response ___ Code Blue ___ Other (describe below) Pastoral Care Referral From _x__ Patient ___ Family ___ Nurse ___ Physician ___ Outpatient Receptionist ___ Wrecking Car Driver ___ Other (describe below) Sacrament/Intervention _x__ Active listening ___ Anointing ___ Muslim ___ Bereavement ___ Communion _x__ Arabella exploration ___ ___ Life review _x__ Prayer ___ Reconciliation ___ Sacrament of Sick _x__ Supportive presence ___ Wedding ___ Other (describe below) Pastoral Comments patient requested personal visit by this water taxi operator into his isolation room; pt was on bi-pap but able to speak; pt wanted spiritual drug and alcohol counselor and assurance; pt requested personal prayer; pt given as requested; RN believes that pt will be moved to ICU
--- NOTE | 2021-07-06 13:50 | CON.PCM.CC_ITS ---
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 Continue Decadron (07/15/2021), baricitinib (07/19/2021) and Remdesivir (07/09/2021) as ordered 2. Monitor for complications of medical therapy 3. Continue BiPAP with Airvo breaks as tolerated 4. Agree with intermittent Lasix 5. Wean oxygen as tolerated 6. Encourage incentive spirometer, Acapella and prone positioning as tolerated 7. Obtain sputum culture with fever IMPRESSIONS: 1. Acute hypoxic respiratory failure secondary to COVID-19 Patient does not have any PE on CTA of the chest, but extensive groundglass opacities are appreciated. Patient is appropriately on Decadron, baricitinib and Remdesivir. We will have to watch closely for complications of therapy. Continue to wean FiO2 as tolerated. Patient should use Airvo to facilitate p.o. intake if possible. Did encourage incentive spirometer, Acapella and prone positioning as tolerated. Sputum culture could be obtained to evaluate for secondary infection. Blood cultures are no growth to date. 2. Nonvaccinated status/obesity/hypertension/diabetes/hyperlipidemia Complicates care, management, recovery and prognosis. Anticipate significant hyperglycemia given Decadron therapy. Will adjust insulin as tolerated. May need to hold losartan if patient starts to develop renal dysfunction. Okay to continue with baseline statin. HPI Consult Data Date of Consult: 07/06/21 HPI Narrative HPI Narrative: BRET FISHMAN is a 56 M, with past medical history listed below, who presents to [facility] on 07[facility]05[facility]2021 secondary to progre ssive shortness of breath. Patient reportedly had presented to an urgent care with a low pulse ox and a history of COVID-19. Patient believes he started to feel weak and tired approximately 6 days prior to presentation. Patient's family has tested positive for Covid. Patient is not vaccinated. Patient denied any fever, but did have increased shortness of breath and a cough that was nonproductive. Patient did report a change, but not loss of taste and smell. On presentation to the urgent care, patient was noted to have a saturation in the 70s. In the ER, patient was afebrile, but tachycardic at 102 bpm. Patient was hypertensive and noted to be 73% on room air. The patient was placed on high flow nasal cannula at 15 L and saturating only 90%. Laboratory data was noted to have white blood cell count of 4, hemoglobin of 15.3 and a D-dimer of 1.19. Patient's renal function and potassium were within normal limits. Patient's lactate was slightly elevated at 2.8. ABG showed adequate ventilation, but poor oxygenation with an increased AA gradient. Chest x-ray showed bilateral pneumonia and a CTA of the chest showed no PE, but scattered groundglass opacities. Patient was tentatively scheduled to come to the intensive care unit, but subsequently ended up on MedSurg. Patient has required BiPAP therapy to maintain saturations. Patient was on Airvo for a short period of time to facilitate breakfast. Patient overall feels subjectively improved since being admitted to the hospital. Patient denies any history of asthma or COPD. Patient has never required supplemental oxygen previously. Patient does not use any inhalers at baseline. 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 Patient is not reporting any diarrhea, nausea or vomiting. Patient does have a dry mouth and has noted some chapped lips recently. Review of systems otherwise negative from a constitutional, HEENT, respiratory, cardiovascular, GI, genitourinary, musculoskeletal, skin, neurologic, psychiatric and hematologic system unless stated above. COUNTS INCLUDE 234 BEDS AT THE [facility] Medical History Abnormal results of thyroid function studies Benign hypertension Diabetes Microalbuminuria due to type 2 diabetes mellitus Obesity Home Medications losartan 25 mg tablet 25 tablet PO DAILY 04/05/21 [History Last Taken Unknown] pen needle, diabetic 32 gauge x #60 ea 04/05/21 [Rx Last Taken Unknown] simvastatin 10 mg tablet 10 ea PO DAILY 04/05/21 [History Last Taken Unknown] dapagliflozin [Farxiga] 10 mg PO DAILY 07/05/21 [History Last Taken Unknown] insulin lispro protamin-lispro [Humalog Mix 50-50 KwikPen] See Rx Instructions SUBCUT DAILY 07/05/21 [History Last Taken Unknown] metformin 1,000 mg PO BID 07/05/21 [History Last Taken Unknown] Allergy/AdvReac Type Severity Reaction Status Date / Time No Known Allergies Allergy Verified 07/05/21 18:51 Family History Other Cancer Diabetes Surgical History no surgical history Social History Smoking Status: Never smoker alcohol intake: never substance use type: does not use what type of physical activity do you participate in: none ROS ROS Narrative See HPI Physical Exam Const alert and oriented x3 General Appearance: anxious and on BiPAP Nutritional Appearance: obese HEENT normocephalic and head/scalp atraumatic Mouth: oral and palatal mucosa normal Eyes PERRL, EOMs intact bilaterally and no scleral icterus Sclera: No sclera abnormal Neck full ROM Lymph Lymphatic: no lymphadenopathy noted Chest inspection of chest normal Chest: symmetrical chest wall rise; Negative for crepitus Resp Effort and Inspection: tachypneic Auscultation: diminished lung sounds; Negative for rales, rhonchi or wheezes Cardio regular rate, regular rhythm, S1 normal heart sound, S2 normal heart sound, no murmurs, no rub and no gallops GI normal to inspection, nondistended, normoactive bowel sounds Extremity General Extremity: Negative for clubbing or edema Skin no rashes or lesions noted Neuro oriented x3, CN's II-XII intact bilaterally and moves all extremities Psych cooperative Activity / Motor Behavior: restless Mood & Affect: anxious Lab / Micro Data Result Diagrams: 07/06/21 06:40 07/06/21 06:40 Labs: Laboratory Results - last 24 hr 07/05/21 19:00: WBC 4.0 L, RBC 4.95, Hgb 15.3, Hct 44.9, MCV 90.7, MCH 30.9, MCHC 34.1, RDW Std Deviation 39.9, RDW Coeff of Mamadou 12.1, Plt Count 211, MPV 10.7, Immature Gran % (Auto) 0.500, Neut % (Auto) 70.9 H, Lymph % (Auto) 22.9, [place] % (Auto) 5.5, Eos % (Auto) 0.0, Baso % (Auto) 0.2, Absolute Neuts (auto) 2.8, Absolute Lymphs (auto) 0.92, Nucleated RBC % 0, Atypical Lymphocytes RARE, Platelet Estimate ADEQUATE, RBC Morphology N CHROM, Anisocytosis RARE, Macrocytosis RARE 07/05/21 19:00: D-Dimer Quant (PE/DVT) 1.19 H* 07/05/21 19:00: Sodium 134 L, Potassium 4.0, Chloride 97 L, Carbon Dioxide 24.0, Anion Gap 13, BUN 16, Creatinine 0.96, Estim Creat Clear Calc 85.10, Est GFR (MDRD) Af Amer 105, Est GFR (MDRD) Non-Af 87, BUN/Creatinine Ratio 16.7, Glucose 112 H, Calcium 8.5, Total Bilirubin 0.50, AST 49 H, ALT 22, Alkaline Phosphatase 67, Troponin I High Sens 14, Total Protein 8.1, Albumin 2.9 L, Globulin 5.2 H, Albumin/Globulin Ratio 0.6 L 07/05/21 19:00: Lactic Acid 2.8 H* 07/06/21 00:00: Lactic Acid 0.9 07/06/21 00:00: Procalcitonin 0.29 H 07/06/21 00:48: POC Glucose 193 H 07/06/21 06:40: WBC 2.9 L, RBC 4.74, Hgb 14.5, Hct 43.1, MCV 90.9, MCH 30.6, MCHC 33.6, RDW Std Deviation 40.7, RDW Coeff of Mamadou 12.1, Plt Count 212, MPV 10.4, Immature Gran % (Auto) 1.000 H, Neut % (Auto) 72.1 H, Lymph % (Auto) 20.3, [place] % (Auto) 6.3, Eos % (Auto) 0.0, Baso % (Auto) 0.3, Absolute Neuts (auto) 2.1, Absolute Lymphs (auto) 0.58 L, Nucleated RBC % 0, Diff Path Review November07/06/21 06:40: Sodium 137, Potassium 3.9, Chloride 99, Carbon Dioxide 27.0, Anion Gap 11, BUN 23 H, Creatinine 0.96, Estim Creat Clear Calc 85.10, Est GFR (MDRD) Af Amer 105, Est GFR (MDRD) Non-Af 87, BUN/Creatinine Ratio 24.0 H, Glucose 217 H, Calcium 8.2 L, Total Bilirubin 0.40, AST 45 H, ALT 25, Alkaline Phosphatase 59, Total Protein 7.5, Albumin 2.6 L, Globulin 4.9 H, Albumin/Globulin Ratio 0.5 L 07/06/21 06:41: POC Glucose 208 H Micro: Microbiology 07/05/21 19:10 Nasal Secretion SARS-CoV-2 Antigen (Rapid) - Final SARS-CoV-2 (COVID 19) ABG Data ABG results: ABG 07/05/21 19:11 Specimen Type ART Sample Site R Radial pH 7.44 Bicarbonate Actual 21.8 L Total CO2 23 Base Excess -2 O2 Saturation 91 L ABG pCO2 32.1 L ABG pO2 57 L Justin Test Positive O2 Delivery Device Cannula Liter Flow 11.0 Radiology Impression Chest X-Ray 07/05/21 18:59 IMPRESSION: Bilateral pneumonia. Electronically Signed: Benny Messer MD at 21:08 EST , Service support , Chest CTA 07/05/21 20:04 IMPRESSION: CTA chest examination, without a demonstrated pulmonary embolism or arterial dissection. Bilateral pneumonia. Electronically Signed: Benny Messer MD at 21:15 EST , Service support , Charges/Coding Visit Charges Inpatient E&M: 51002 Init Hosp L3
[2021-07-06 16:45] LABS: Bedside Glucose 163 mg/dL (70-110)
[2021-07-06 16:51] LABS: Bedside Glucose 209 mg/dL (70-110)
[2021-07-06] MEDS: Atorvastatin Calcium 10 MG Tablet 5 MG PO (20:50)
[2021-07-06 21:16] LABS: Bedside Glucose 257 mg/dL (70-110)
[2021-07-07] VITALS (18 sets, daily range): BP systolic 100–140; BP diastolic 65–81; PULSE 69–91; RESP 12–26; TEMP 36.7–36.9; O2SAT 90–96
[2021-07-07] MEDS: Insulin Lispro 100 UNIT/ML INSULN.PEN SC ×4 (06:31→23:11)
[2021-07-07 06:44] LABS: Absolute Lymphocyte Count 1.08 X10^3/uL (0.83-4.51); Absolute Neutrophil Count 5.7 X10^3/uL (2.0-7.7); Basophil# 0.04 X10^3/uL; Basophil% 0.5 % (0-1); Hematocrit 46.7 % (40-54); Hemoglobin 15.9 g/dL (13.0-16.5); Lymphocyte # 1.08 X10^3/ul (0.83-4.51); Lymphocyte % 14.6 % (19-41); Mean Corpuscular Hgb 30.8 pg (27.0-32.0); Mean Corpuscular Volume 90.5 fL (80-94); Mean Platelet Vol. 10.4 fl (6.2-12.0); Monocyte# 0.56 X10^3/uL; Monocyte% 7.5 % (0-10); NRBC Flagged by Analyzer 0 % (0-5); Neutrophil # 5.67 X10^3/uL (2.7-7.7); Neutrophil % 76.5 % (47-70); POSITIVE MORPHOLOGY YES; Platelet Count 316 K/mm3 (150-450); RBC Distribution Width CV 12.6 % (11.6-14.6); RBC Distribution Width SD 41.4 fl (35.1-43.9); Red Blood Count 5.16 M/mm3 (4.6-6.2); White Blood Count 7.4 K/mm3 (4.4-11.0)
[2021-07-07 06:46] LABS: Differential Indicated SCAN CRITERIA MET
[2021-07-07 06:59] LABS: Atypical Lymphocyte RARE %; Differential Comment SCANNED
[2021-07-07 07:11] LABS: Bedside Glucose 231 mg/dL (70-110)
[2021-07-07 07:14] LABS: ALB/GLOB Ratio 0.5 RATIO (0.9-2.4); AST(SGOT) 46 U/L (15-37); Alanine Aminotransfer ALT/SGPT 27 U/L (16-61); Albumin, Serum 2.7 g/dL (3.2-5.0); Alkaline Phosphatase 66 U/L (45-117); Anion Gap 10 (5-15); BUN 33 mg/dL (7-18); BUN/Creat Ratio 39.6 RATIO (10-20); Calcium,Total 8.8 mg/dL (8.5-10.1); Chloride 104 mmol/L (98-107); Creatinine, Serum 0.83 mg/dL (0.70-1.30); EST Glomerular Filtration Rate 102 mL/min (>60); Est Glom Filt Rate - Afr Amer 124 mL/min (>60); Estimated Creatinine Clearance 98.43 ml/min; Globulin 5.2 g/dL (2.2-4.2); Glucose 159 mg/dL (74-106); Protein, Total 7.9 g/dL (6.4-8.2); Sodium Level 140 mmol/L (136-145)
[2021-07-07] MEDS: Furosemide 40 MG/4 ML Vial IV (09:18)
[2021-07-07] MEDS: guaiFENesin 1,200 MG Tablet 1200 MG PO ×2 (09:18→23:12)
[2021-07-07] MEDS: Enoxaparin 40 MG/0.4 ML Syringe SC ×2 (09:18→23:09)
[2021-07-07] MEDS: Losartan Potassium 25 MG Tablet PO (09:19)
[2021-07-07] MEDS: Empagliflozin 25 MG Tablet PO (09:19)
[2021-07-07] MEDS: dexAMETHasone 10 MG/ML Vial 6 MG IV (09:19)
[2021-07-07 09:42] LABS: Pathologist Review Reviewed
--- NOTE | 2021-07-07 10:26 | PCM.PN.INT ---
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 Continue Decadron (07/15/2021), baricitinib (07/19/2021) and Remdesivir (07/09/2021) as ordered 2. Monitor for complications of medical therapy 3. Continue BiPAP with Airvo breaks as tolerated. Continue BiPAP with sleep 4. Agree with intermittent Lasix as tolerates 5. Wean oxygen as tolerated 6. Encourage incentive spirometer, Acapella and prone positioning as tolerated 7. Obtain sputum culture with fever IMPRESSIONS: 1. Acute hypoxic respiratory failure secondary to COVID-19 Patient does not have any PE on CTA of the chest, but extensive groundglass opacities are appreciated. Patient is appropriately on Decadron, baricitinib and Remdesivir. We will have to watch closely for complications of therapy. Patient has had some decrease in white blood cell count on admission, but appears to be improving. Continue to wean FiO2 as tolerated. Patient should use Airvo to facilitate p.o. intake. Would recommend continuing BiPAP with sleep. Did encourage incentive spirometer, Acapella and prone positioning as tolerated. Sputum culture could be obtained to evaluate for secondary infection. Blood cultures are no growth to date. Patient is still at high risk for need of intubation moving forward. Okay to keep on the floor. 2. Nonvaccinated status/obesity/hypertension/diabetes/hyperlipidemia Complicates care, management, recovery and prognosis. Anticipate significant hyperglycemia given Decadron therapy. Will adjust insulin as tolerated. May need to hold losartan if patient starts to develop renal dysfunction. Okay to continue with baseline statin. Subjective Subjective Patient doing okay today. Patient subjectively feels improved compared to yesterday. Patient was asked that Airvo during my evaluation and was ready to tolerate breakfast. Patient continues to report a cough. No chest pain is been reported. Objective Data Objective Data Vital Signs: Vital Signs Temp Pulse Resp BP Pulse Ox 36.8 C 90 18 140/81 H 96 07/07/21 09:04 07/07/21 09:04 07/07/21 09:04 07/07/21 09:04 07/07/21 09:04 Oxygen Flow Rate (L/min) 96 Oxygen Delivery Method Airvo Weight: 94.1 kg Body Mass Index (BMI) 32.4 Intake & Output: Intake and Output for Last 24 Hours 07/05/21 07/06/21 07/07/21 23:59 23:59 23:59 Intake Total 1400 / 1400 1400 / 1400 Output Total 900 / 900 1275 / 1275 Balance 500 / 500 125 / 125 Lab / Micro Data Result Diagrams: 07/07/21 06:26 07/07/21 06:26 Labs: Laboratory Results - last 24 hr 07/06/21 06:40: Diff Path Review Reviewed 07/06/21 12:18: POC Glucose 209 H 07/06/21 16:27: POC Glucose 163 H 07/06/21 20:49: POC Glucose 257 H 07/07/21 06:26: WBC 7.4, RBC 5.16, Hgb 15.9, Hct 46.7, MCV 90.5, MCH 30.8, MCHC 34.0, RDW Std Deviation 41.4, RDW Coeff of Mamadou 12.6, Plt Count 316, MPV 10.4, Immature Gran % (Auto) 0.900, Neut % (Auto) 76.5 H, Lymph % (Auto) 14.6 L, [place] % (Auto) 7.5, Eos % (Auto) 0.0, Baso % (Auto) 0.5, Absolute Neuts (auto) 5.7, Absolute Lymphs (auto) 1.08, Nucleated RBC % 0, Differential Comment SCANNED, Atypical Lymphocytes RARE 07/07/21 06:26: Sodium 140, Potassium 4.0, Chloride 104, Carbon Dioxide 26.0, Anion Gap 10, BUN 33 H, Creatinine 0.83, Estim Creat Clear Calc 98.43, Est GFR (MDRD) Af Amer 124, Est GFR (MDRD) Non-Af 102, BUN/Creatinine Ratio 39.6 H, Glucose 159 H, Calcium 8.8, Total Bilirubin 0.60, AST 46 H, ALT 27, Alkaline Phosphatase 66, Total Protein 7.9, Albumin 2.7 L, Globulin 5.2 H, Albumin/Globulin Ratio 0.5 L 07/07/21 06:30: POC Glucose 231 H Micro: Microbiology 12/21/21 19:10 Nasal Secretion SARS-CoV-2 Antigen (Rapid) - Final SARS-CoV-2 (COVID 19) Physical Exam Const alert and oriented x3 Constitutional Narrative: On Airvo General Appearance: cooperative and comfortable Nutritional Appearance: obese HEENT normocephalic and head/scalp atraumatic Mouth: oral and palatal mucosa normal Eyes PERRL, EOMs intact bilaterally and no scleral icterus Sclera: No sclera abnormal Neck full ROM Lymph Lymphatic: no lymphadenopathy noted Chest inspection of chest normal Chest: symmetrical chest wall rise; Negative for crepitus Resp Effort and Inspection: tachypneic Auscultation: diminished lung sounds; Negative for rales, rhonchi or wheezes Cardio regular rate, regular rhythm, S1 normal heart sound, S2 normal heart sound, no murmurs, no rub and no gallops GI normal to inspection, nondistended, normoactive bowel sounds Extremity General Extremity: Negative for clubbing or edema Skin no rashes or lesions noted Neuro oriented x3, CN's II-XII intact bilaterally and moves all extremities Psych cooperative Activity / Motor Behavior: fidgetting Mood & Affect: flat affect Charges/Coding Visit Charges Inpatient E&M: 89892 Subs Hosp L3
[2021-07-07 12:21] LABS: Bedside Glucose 251 mg/dL (70-110)
--- NOTE | 2021-07-07 12:59 | PN.HOSP_ITS ---
Subjective Subjective Follow-up on acute respiratory failure/Acute COVID-19 pneumonia: Patient was seen and examined. Patient remains on BiPAP. Objective Data Objective Data Vital Signs: Vital Signs Temp Pulse Resp BP Pulse Ox 98.3 F 90 18 140/81 H 96 07/07/21 09:04 07/07/21 09:04 07/07/21 10:00 07/07/21 09:04 07/07/21 09:04 Oxygen Flow Rate (L/min) 96 Oxygen Delivery Method Bi-pap Weight: 94.1 kg Body Mass Index (BMI) 32.4 Intake & Output: Intake and Output for Last 24 Hours 07/05/21 07/06/21 07/07/21 23:59 23:59 23:59 Intake Total 1400 / 1400 1400 / 1400 Output Total 900 / 900 1275 / 1275 Balance 500 / 500 125 / 125 Lab / Micro Data Result Diagrams: 07/07/21 06:26 07/07/21 06:26 Labs: Laboratory Results - last 24 hr 07/06/21 06:40: Diff Path Review Reviewed 07/06/21 12:18: POC Glucose 209 H 07/06/21 16:27: POC Glucose 163 H 07/06/21 20:49: POC Glucose 257 H 07/07/21 06:26: WBC 7.4, RBC 5.16, Hgb 15.9, Hct 46.7, MCV 90.5, MCH 30.8, MCHC 34.0, RDW Std Deviation 41.4, RDW Coeff of Mamadou 12.6, Plt Count 316, MPV 10.4, Immature Gran % (Auto) 0.900, Neut % (Auto) 76.5 H, Lymph % (Auto) 14.6 L, [place] % (Auto) 7.5, Eos % (Auto) 0.0, Baso % (Auto) 0.5, Absolute Neuts (auto) 5.7, Absolute Lymphs (auto) 1.08, Nucleated RBC % 0, Differential Comment SCANNED, Atypical Lymphocytes RARE 07/07/21 06:26: Sodium 140, Potassium 4.0, Chloride 104, Carbon Dioxide 26.0, An ion Gap 10, BUN 33 H, Creatinine 0.83, Estim Creat Clear Calc 98.43, Est GFR (MDRD) Af Amer 124, Est GFR (MDRD) Non-Af 102, BUN/Creatinine Ratio 39.6 H, Glucose 159 H, Calcium 8.8, Total Bilirubin 0.60, AST 46 H, ALT 27, Alkaline Phosphatase 66, Total Protein 7.9, Albumin 2.7 L, Globulin 5.2 H, Albumin/Globulin Ratio 0.5 L 07/07/21 06:30: POC Glucose 231 H 07/07/21 12:08: POC Glucose 251 H Micro: Microbiology 07/05/21 19:10 Nasal Secretion SARS-CoV-2 Antigen (Rapid) - Final SARS-CoV-2 (COVID 19) Assessment & Plan Assessment/Plan (1) Respiratory failure: QUALIFIERS: Chronicity: acute Respiratory failure complication: hypoxia Qualified Code(s): J96.01 - Acute respiratory failure with hypoxia (2) Pneumonia due to COVID-19 virus: (3) Obesity: QUALIFIERS: Obesity type: due to excess calories Obesity classification: adult class 1 (BMI 30 - 34.9) Serious obesity comorbidity presence: with serious comorbidity Body mass index: BMI 33.0-33.9 Qualified Code(s): E66.09 - Other obesity due to excess calories; Z68.33 - Body mass index [BMI] 33.0-33.9, adult (4) Microalbuminuria due to type 2 diabetes mellitus: (5) Benign hypertension: PLAN: 1. Acute hypoxic respiratory failure secondary to acute COVID-19 pneumonia Patient is currently on Airvo/BiPAP Patient is not vaccinated Admitting chest x-ray showed bilateral infiltrates. CTA chest showed no acute PE Continue on remdesivir, dexamethasone, baricitinib Pulmonary and ID following 2. Type II DM, blood glucose is fairly controlled Continue on Jardiance, Humalog 50-50, insulin sliding scale with blood glucose checks 3. Rest of his chronic medical conditions including hypertension/hyperlipidemia/obesity remained stable Continue on losartan, atorvastatin Charges/Coding Visit Charges Inpatient E&M: 66649 Subs Hosp L2
[2021-07-07 17:20] LABS: Bedside Glucose 196 mg/dL (70-110)
[2021-07-07] MEDS: Atorvastatin Calcium 10 MG Tablet 5 MG PO (23:10)
[2021-07-07 23:36] LABS: Bedside Glucose 176 mg/dL (70-110)
[2021-07-08] VITALS (15 sets, daily range): BP systolic 123–137; BP diastolic 76–88; PULSE 68–83; RESP 12–20; TEMP 36.7–36.9; O2SAT 92–96
[2021-07-08] MEDS: MELATONIN 3 MG TABLET PO (01:55)
[2021-07-08] MEDS: Insulin Lispro 100 UNIT/ML INSULN.PEN SC ×4 (08:17→21:29)
[2021-07-08] MEDS: Glucerna Shake 120 ML LIQUID PO ×2 (08:19→11:48)
[2021-07-08] MEDS: Empagliflozin 25 MG Tablet PO (08:20)
[2021-07-08] MEDS: Enoxaparin 40 MG/0.4 ML Syringe SC ×2 (08:20→21:30)
[2021-07-08] MEDS: Losartan Potassium 25 MG Tablet PO (08:21)
[2021-07-08] MEDS: Senna/Docusate Sodium 1 Tablet 2 TABLET PO ×2 (08:21→21:29)
[2021-07-08] MEDS: guaiFENesin 1,200 MG Tablet 1200 MG PO ×2 (08:22→21:29)
[2021-07-08] MEDS: dexAMETHasone 10 MG/ML Vial 6 MG IV (08:22)
[2021-07-08 08:25] LABS: Absolute Lymphocyte Count 1.74 X10^3/uL (0.83-4.51); Basophil# 0.07 X10^3/uL; Basophil% 0.7 % (0-1); Hematocrit 44.2 % (40-54); Hemoglobin 15.2 g/dL (13.0-16.5); Lymphocyte # 1.74 X10^3/ul (0.83-4.51); Mean Corp Hgb Conc 34.4 g/dL (32-36); Mean Corpuscular Hgb 31.1 pg (27.0-32.0); Mean Corpuscular Volume 90.4 fL (80-94); Mean Platelet Vol. 10.2 fl (6.2-12.0); Monocyte# 0.72 X10^3/uL; Monocyte% 7.5 % (0-10); NRBC Flagged by Analyzer 0 % (0-5); Neutrophil # 7.04 X10^3/uL (2.7-7.7); Neutrophil % 72.9 % (47-70); POSITIVE MORPHOLOGY YES; Platelet Count 348 K/mm3 (150-450); RBC Distribution Width CV 12.4 % (11.6-14.6); Red Blood Count 4.89 M/mm3 (4.6-6.2); White Blood Count 9.7 K/mm3 (4.4-11.0)
[2021-07-08 08:26] LABS: Differential Indicated SCAN CRITERIA MET
[2021-07-08 08:46] LABS: Atypical Lymphocyte 1+ %; Differential Comment SCANNED
[2021-07-08 08:48] LABS: ALB/GLOB Ratio 0.6 RATIO (0.9-2.4); AST(SGOT) 37 U/L (15-37); Alanine Aminotransfer ALT/SGPT 29 U/L (16-61); Albumin, Serum 2.7 g/dL (3.2-5.0); Alkaline Phosphatase 61 U/L (45-117); Anion Gap 14 (5-15); BUN 34 mg/dL (7-18); BUN/Creat Ratio 49.6 RATIO (10-20); Calcium,Total 8.5 mg/dL (8.5-10.1); Chloride 102 mmol/L (98-107); Creatinine, Serum 0.68 mg/dL (0.70-1.30); EST Glomerular Filtration Rate 128 mL/min (>60); Est Glom Filt Rate - Afr Amer 155 mL/min (>60); Estimated Creatinine Clearance 120.15 ml/min; Globulin 4.7 g/dL (2.2-4.2); Glucose 165 mg/dL (74-106); Potassium 4.2 mmol/L (3.5-5.1); Protein, Total 7.4 g/dL (6.4-8.2); Sodium Level 138 mmol/L (136-145)
[2021-07-08 08:51] LABS: Bedside Glucose 204 mg/dL (70-110)
--- NOTE | 2021-07-08 10:45 | PN.HOSP_ITS ---
Subjective Subjective Follow-up on acute respiratory failure/Acute COVID-19 pneumonia: Patient was seen and examined. Patient remains on Airvo. Oxygen requirements have improved. Objective Data Objective Data Vital Signs: Vital Signs Temp Pulse Resp BP Pulse Ox 98.4 F 72 16 123/76 H 94 07/08/21 08:00 07/08/21 08:00 07/08/21 08:00 07/08/21 08:00 07/08/21 08:00 Oxygen Flow Rate (L/min) 96 Oxygen Delivery Method Airvo Weight: 91.852 kg Body Mass Index (BMI) 32.4 Intake & Output: Intake and Output for Last 24 Hours 07/06/21 07/07/21 07/08/21 23:59 23:59 23:59 Intake Total 1400 / 1400 3450 / 3450 250 / 250 Output Total 900 / 900 2825 / 4625 1800 / 1800 Balance 500 / 500 625 / -1175 -1550 / -1550 Lab / Micro Data Result Diagrams: 07/08/21 08:15 07/08/21 08:15 Labs: Laboratory Results - last 24 hr 07/07/21 12:08: POC Glucose 251 H 07/07/21 16:40: POC Glucose 196 H 07/07/21 22:59: POC Glucose 176 H 07/08/21 08:15: WBC 9.7, RBC 4.89, Hgb 15.2, Hct 44.2, MCV 90.4, MCH 31.1, MCHC 34.4, RDW Std Deviation 41.0, RDW Coeff of Mamadou 12.4, Plt Count 348, MPV 10.2, Immature Gran % (Auto) 0.900, Neut % (Auto) 72.9 H, Lymph % (Auto) 18.0 L, [place] % (Auto) 7.5, Eos % (Auto) 0.0, Baso % (Auto) 0.7, Absolute Neuts (auto) 7.0, Ab solute Lymphs (auto) 1.74, Nucleated RBC % 0, Differential Comment SCANNED, Atypical Lymphocytes 1+ 07/08/21 08:15: Sodium 138, Potassium 4.2, Chloride 102, Carbon Dioxide 22.0, Anion Gap 14, BUN 34 H, Creatinine 0.68 L, Estim Creat Clear Calc 120.15, Est GFR (MDRD) Af Amer 155, Est GFR (MDRD) Non-Af 128, BUN/Creatinine Ratio 49.6 H, Glucose 165 H, Calcium 8.5, Total Bilirubin 0.70, AST 37, ALT 29, Alkaline Phosphatase 61, Total Protein 7.4, Albumin 2.7 L, Globulin 4.7 H, Albumin/Globulin Ratio 0.6 L 07/08/21 08:15: POC Glucose 204 H Micro: Microbiology 07/05/21 19:10 Nasal Secretion SARS-CoV-2 Antigen (Rapid) - Final SARS-CoV-2 (COVID 19) Physical Exam Narrative Physical exam: General: Alert, Oriented x3, Cooperative, No apparent distress, Well developed HEENT: Atraumatic Oral: Moist Mucosa Neck: Supple Lungs: Diminished to auscultation Cardiovascular: HS I+II, regular, no murmurs Abdomen: Bowel Sounds Present, Soft, Non Tender Extremities: No edema Assessment & Plan Assessment/Plan (1) Respiratory failure: QUALIFIERS: Chronicity: acute Respiratory failure complication: hypoxia Qualified Code(s): J96.01 - Acute respiratory failure with hypoxia (2) Pneumonia due to COVID-19 virus: (3) Obesity: QUALIFIERS: Body mass index: BMI 33.0-33.9 Obesity classification: adult class 1 (BMI 30 - 34.9) Obesity type: due to excess calories Serious obesity comorbidity presence: with serious comorbidity Qualified Code(s): E66.09 - Other obesity due to excess calories; Z68.33 - Body mass index [BMI] 33.0-33.9, adult (4) Microalbuminuria due to type 2 diabetes mellitus: (5) Benign hypertension: PLAN: 1. Acute hypoxic respiratory failure secondary to acute COVID-19 pneumonia Patient is currently on Airvo/BiPAP Patient is unvaccinated Admitting chest x-ray showed bilateral infiltrates. CTA chest showed no acute PE Continue on remdesivir, dexamethasone, baricitinib Pulmonary and ID following 2. Type II DM, blood glucose is fairly controlled Continue on Jardiance, Humalog 50-50, insulin sliding scale with blood glucose checks 3. Rest of his chronic medical conditions including hypertension/hyperl ipidemia/obesity remained stable Continue on losartan, atorvastatin Charges/Coding Visit Charges Inpatient E&M: 11888 Subs Hosp L2
--- NOTE | 2021-07-08 12:57 | PN.CC_ITS ---
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 Continue Decadron (07/15/2021), baricitinib (07/19/2021) and Remdesivir (07/09/2021) as ordered 2. Monitor for complications of medical therapy 3. Continue BiPAP with sleep and Airvo during the day 4. Agree with intermittent Lasix as tolerates 5. Wean oxygen as tolerated 6. Encourage incentive spirometer, Acapella and prone positioning as tolerated 7. Obtain sputum and blood cultures with a knee fever IMPRESSIONS: 1. Acute hypoxic respiratory failure secondary to COVID-19 Patient does not have any PE on CTA of the chest, but extensive groundglass opacities are appreciated. Patient is appropriately on Decadron, baricitinib and Remdesivir. We will have to watch closely for complications of therapy. Patient has had some decrease in white blood cell count on admission, but appears to be improving. Continue to wean FiO2 as tolerated. Patient should use Airvo to facilitate p.o. intake. Would recommend continuing BiPAP with sleep. Did encourage incentive spirometer, Acapella and prone positioning as tolerated. Panculture could be obtained to evaluate for secondary infection. Blood cultures are no growth to date. Patient is slowly improving. 2. Nonvaccinated status/obesity/hypertension/diabetes/hyperlipidemia Complicates care, management, recovery and prognosis. Anticipate significant hyperglycemia given Decadron therapy. Will adjust insulin as tolerated. May need to hold losartan if patient starts to develop renal dysfunction. Okay to continue with baseline statin. Subjective Subjective Patient seen eating lunch. Patient reports subjective improvement in overall condition. Patient is not reporting any chest pain. Patient has had some cough that is described as nonproductive Objective Data Objective Data Vital Signs: Vital Signs Temp Pulse Resp BP Pulse Ox 36.9 C 72 18 123/76 H 94 07/08/21 08:00 07/08/21 08:00 07/08/21 10:00 07/08/21 08:00 07/08/21 08:00 Oxygen Flow Rate (L/min) 96 Oxygen Delivery Method Airvo Weight: 91.852 kg Body Mass Index (BMI) 32.4 Intake & Output: Intake and Output for Last 24 Hours 07/06/21 07/07/21 07/08/21 23:59 23:59 23:59 Intake Total 1400 / 1400 3450 / 3450 1100 / 1100 Output Total 900 / 900 2825 / 4625 2900 / 2900 Balance 500 / 500 625 / -1175 -1800 / -1800 Lab / Micro Data Result Diagrams: 07/08/21 08:15 07/08/21 08:15 Labs: Laboratory Results - last 24 hr 07/07/21 16:40: POC Glucose 196 H 07/07/21 22:59: POC Glucose 176 H 07/08/21 08:15: WBC 9.7, RBC 4.89, Hgb 15.2, Hct 44.2, MCV 90.4, MCH 31.1, MCHC 34.4, RDW Std Deviation 41.0, RDW Coeff of Mamadou 12.4, Plt Count 348, MPV 10.2, Immature Gran % (Auto) 0.900, Neut % (Auto) 72.9 H, Lymph % (Auto) 18.0 L, [place] % (Auto) 7.5, Eos % (Auto) 0.0, Baso % (Auto) 0.7, Absolute Neuts (auto) 7.0, Ab solute Lymphs (auto) 1.74, Nucleated RBC % 0, Differential Comment SCANNED, Atypical Lymphocytes 1+ 07/08/21 08:15: Sodium 138, Potassium 4.2, Chloride 102, Carbon Dioxide 22.0, Anion Gap 14, BUN 34 H, Creatinine 0.68 L, Estim Creat Clear Calc 120.15, Est GFR (MDRD) Af Amer 155, Est GFR (MDRD) Non-Af 128, BUN/Creatinine Ratio 49.6 H, Glucose 165 H, Calcium 8.5, Total Bilirubin 0.70, AST 37, ALT 29, Alkaline Phosphatase 61, Total Protein 7.4, Albumin 2.7 L, Globulin 4.7 H, Albumin/Globulin Ratio 0.6 L 07/08/21 08:15: POC Glucose 204 H Micro: Microbiology 07/05/21 19:15 Blood Culture (Wb) - Anticubital Right Blood Culture - Preliminary No growth in 48 hours. 07/05/21 19:00 Blood Culture (Wb) - Anticubital Left Blood Culture - Preliminary No growth in 48 hours. 07/05/21 19:10 Nasal Secretion SARS-CoV-2 Antigen (Rapid) - Final SARS-CoV-2 (COVID 19) Physical Exam Const alert and oriented x3 Constitutional Narrative: On Airvo General Appearance: cooperative and comfortable Nutritional Appearance: obese HEENT normocephalic and head/scalp atraumatic Mouth: oral and palatal mucosa normal Eyes PERRL, EOMs intact bilaterally and no scleral icterus Sclera: No sclera abnormal Neck full ROM Lymph Lymphatic: no lymphadenopathy noted Chest inspection of chest normal Chest: symmetrical chest wall rise; Negative for crepitus Resp Effort and Inspection: tachypneic Auscultation: diminished lung sounds; Negative for rales, rhonchi or wheezes Cardio regular rate, regular rhythm, S1 normal heart sound, S2 normal heart sound, no murmurs, no rub and no gallops GI normal to inspection, nondistended, normoactive bowel sounds Extremity General Extremity: Negative for clubbing or edema Skin no rashes or lesions noted Neuro oriented x3, CN's II-XII intact bilaterally and moves all extremities Psych mental status grossly normal, thought process normal and cooperative Activity / Motor Behavior: appropriate eye contact Mood & Affect: flat affect Charges/Coding Visit Charges Inpatient E&M: 14435 Subs Hosp L2
[2021-07-08 17:51] LABS: Bedside Glucose 230 mg/dL (70-110)
[2021-07-08 18:26] LABS: Bedside Glucose 206 mg/dL (70-110)
[2021-07-08] MEDS: 0.9% Saline Lock 10 ML Syringe IV (21:29)
[2021-07-08] MEDS: Atorvastatin Calcium 10 MG Tablet 5 MG PO (21:30)
[2021-07-08 22:05] LABS: Bedside Glucose 169 mg/dL (70-110)
[2021-07-09] VITALS (15 sets, daily range): BP systolic 118–150; BP diastolic 77–92; PULSE 57–96; RESP 12–38; TEMP 36.5–37.1; O2SAT 88–97
[2021-07-09 06:11] LABS: Absolute Lymphocyte Count 2.14 X10^3/uL (0.83-4.51); Absolute Neutrophil Count 8.2 X10^3/uL (2.0-7.7); Basophil# 0.07 X10^3/uL; Basophil% 0.6 % (0-1); Differential Indicated SCAN CRITERIA MET; Hematocrit 46.2 % (40-54); Hemoglobin 15.5 g/dL (13.0-16.5); Lymphocyte # 2.14 X10^3/ul (0.83-4.51); Lymphocyte % 18.6 % (19-41); Mean Corp Hgb Conc 33.5 g/dL (32-36); Mean Corpuscular Hgb 30.8 pg (27.0-32.0); Mean Corpuscular Volume 91.7 fL (80-94); Mean Platelet Vol. 10.3 fl (6.2-12.0); Monocyte# 0.94 X10^3/uL; Monocyte% 8.2 % (0-10); NRBC Flagged by Analyzer 0 % (0-5); Neutrophil # 8.15 X10^3/uL (2.7-7.7); POSITIVE MORPHOLOGY YES; Platelet Count 350 K/mm3 (150-450); RBC Distribution Width CV 12.5 % (11.6-14.6); RBC Distribution Width SD 42.2 fl (35.1-43.9); Red Blood Count 5.04 M/mm3 (4.6-6.2); White Blood Count 11.5 K/mm3 (4.4-11.0)
[2021-07-09 06:28] LABS: Differential Comment SCANNED
[2021-07-09 06:35] LABS: ALB/GLOB Ratio 0.6 RATIO (0.9-2.4); AST(SGOT) 34 U/L (15-37); Alanine Aminotransfer ALT/SGPT 28 U/L (16-61); Albumin, Serum 2.7 g/dL (3.2-5.0); Alkaline Phosphatase 64 U/L (45-117); Anion Gap 6 (5-15); BUN 27 mg/dL (7-18); BUN/Creat Ratio 36.3 RATIO (10-20); Calcium,Total 8.7 mg/dL (8.5-10.1); Chloride 102 mmol/L (98-107); Creatinine, Serum 0.74 mg/dL (0.70-1.30); EST Glomerular Filtration Rate 117 mL/min (>60); Est Glom Filt Rate - Afr Amer 141 mL/min (>60); Estimated Creatinine Clearance 110.41 ml/min; Globulin 4.7 g/dL (2.2-4.2); Glucose 111 mg/dL (74-106); Potassium 4.5 mmol/L (3.5-5.1); Protein, Total 7.4 g/dL (6.4-8.2); Sodium Level 138 mmol/L (136-145)
--- NOTE | 2021-07-09 08:23 | PN.CC_ITS ---
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 Continue Decadron (07/15/2021), baricitinib (07/19/2021) and Remdesivir (07/09/2021) as ordered 2. Monitor for complications of medical therapy 3. Continue BiPAP with sleep and Airvo during the day. Add nasal saline 4. Agree with intermittent Lasix as tolerates 5. Wean oxygen as tolerated 6. Encourage incentive spirometer, Acapella and prone positioning as tolerated 7. Obtain sputum and blood cultures with a any fever IMPRESSIONS: 1. Acute hypoxic respiratory failure secondary to COVID-19 Patient does not have any PE on CTA of the chest, but extensive groundglass opacities are appreciated. Patient is appropriately on Decadron, baricitinib and Remdesivir. We will have to watch closely for complications of therapy. Patient has had some decrease in white blood cell count on admission, but appears to be improving. Continue to wean FiO2 as tolerated. Patient should use Airvo to facilitate p.o. intake. Would recommend continuing BiPAP with sleep. Will add nasal saline given nasal congestion. Did encourage incentive spirometer, Acapella and prone positioning as tolerated. Panculture could be obtained to evaluate for secondary infection. Blood cultures are no growth to date. Patient is slowly improving. 2. Nonvaccinated status/obesity/hypertension/diabetes/hyperlipidemia Complicates care, management, recovery and prognosis. Anticipate signific ant hyperglycemia given Decadron therapy. Will adjust insulin as tolerated. May need to hold losartan if patient starts to develop renal dysfunction. Okay to continue with baseline statin. Subjective Subjective Patient described his night as rough. Patient states that he had difficulty getting rest secondary to limitations with the Airvo. Patient did wear the BiPAP overnight. Patient has had some sinus congestion, but no epistaxis was reported. Objective Data Objective Data Vital Signs: Vital Signs Temp Pulse Resp BP Pulse Ox 36.6 C 68 24 H 150/92 H 90 07/09/21 03:29 07/09/21 07:15 07/09/21 07:15 07/09/21 03:29 07/09/21 07:15 Oxygen Flow Rate (L/min) 96 Oxygen Delivery Method Bi-pap Weight: 91.5 kg Body Mass Index (BMI) 32.4 Intake & Output: Intake and Output for Last 24 Hours 07/07/21 07/08/21 07/09/21 23:59 23:59 23:59 Intake Total 3450 / 3450 1999 / 1999 Output Total 2825 / 4625 4100 / 5000 900 / 900 Balance 625 / -1175 -2100 / -3000 -900 / -900 Lab / Micro Data Result Diagrams: 07/09/21 05:30 07/09/21 05:30 Labs: Laboratory Results - last 24 hr 07/08/21 08:15: WBC 9.7, RBC 4.89, Hgb 15.2, Hct 44.2, MCV 90.4, MCH 31.1, MCHC 34.4, RDW Std Deviation 41.0, RDW Coeff of Mamadou 12.4, Plt Count 348, MPV 10.2, Immature Gran % (Auto) 0.900, Neut % (Auto) 72.9 H, Lymph % (Auto) 18.0 L, [place] % (Auto) 7.5, Eos % (Auto) 0.0, Baso % (Auto) 0.7, Absolute Neuts (auto) 7.0, Absolute Lymphs (auto) 1.74, Nucleated RBC % 0, Differential Comment SCANNED, Atypical Lymphocytes 1+ 07/08/21 08:15: Sodium 138, Potassium 4.2, Chloride 102, Carbon Dioxide 22.0, Anion Gap 14, BUN 34 H, Creatinine 0.68 L, Estim Creat Clear Calc 120.15, Est GFR (MDRD) Af Amer 155, Est GFR (MDRD) Non-Af 128, BUN/Creatinine Ratio 49.6 H, Glucose 165 H, Calcium 8.5, Total Bilirubin 0.70, AST 37, ALT 29, Alkaline Phosphatase 61, Total Protein 7.4, Albumin 2.7 L, Globulin 4.7 H, Albumin/ Globulin Ratio 0.6 L 07/08/21 08:15: POC Glucose 204 H 07/08/21 11:47: POC Glucose 206 H 07/08/21 17:29: POC Glucose 230 H 07/08/21 21:26: POC Glucose 169 H 07/09/21 05:30: WBC 11.5 H, RBC 5.04, Hgb 15.5, Hct 46.2, MCV 91.7, MCH 30.8, MCHC 33.5, RDW Std Deviation 42.2, RDW Coeff of Mamadou 12.5, Plt Count 350, MPV 10.3, Immature Gran % (Auto) 1.600 H, Neut % (Auto) 71.0 H, Lymph % (Auto) 18.6 L, [place] % (Auto) 8.2, Eos % (Auto) 0.0, Baso % (Auto) 0.6, Absolute Neuts (auto) 8.2 H, Absolute Lymphs (auto) 2.14, Nucleated RBC % 0, Differential Comment SCANNED 07/09/21 05:30: Sodium 138, Potassium 4.5, Chloride 102, Carbon Dioxide 30.0, Anion Gap 6, BUN 27 H, Creatinine 0.74, Estim Creat Clear Calc 110.41, Est GFR (MDRD) Af Amer 141, Est GFR (MDRD) Non-Af 117, BUN/Creatinine Ratio 36.3 H, Glucose 111 H, Calcium 8.7, Total Bilirubin 0.70, AST 34, ALT 28, Alkaline Phosphatase 64, Total Protein 7.4, Albumin 2.7 L, Globulin 4.7 H, Albumin/Globulin Ratio 0.6 L Micro: Microbiology 07/05/21 19:15 Blood Culture (Wb) - Anticubital Right Blood Culture - Preliminary No growth in 48 hours. 07/05/21 19:00 Blood Culture (Wb) - Anticubital Left Blood Culture - Preliminary No growth in 48 hours. 07/05/21 19:10 Nasal Secretion SARS-CoV-2 Antigen (Rapid) - Final SARS-CoV-2 (COVID 19) Physical Exam Const alert and oriented x3 Constitutional Narrative: On Airvo General Appearance: cooperative and comfortable Nutritional Appearance: obese HEENT normocephalic and head/scalp atraumatic Mouth: oral and palatal mucosa normal Eyes PERRL, EOMs intact bilaterally and no scleral icterus Sclera: No sclera abnormal Neck full ROM Lymph Lymphatic: no lymphadenopathy noted Chest inspection of chest normal Chest: symmetrical chest wall rise; Negative for crepitus Resp Effort and Inspection: tachypneic Auscultation: diminished lung sounds; Negative for rales, rhonchi or wheezes Cardio regular rate, regular rhythm, S1 normal heart sound, S2 normal heart sound, no murmurs, no rub and no gallops GI normal to inspection, nondistended, normoactive bowel sounds Extremity General Extremity: Negative for clubbing or edema Skin no rashes or lesions noted Neuro oriented x3, CN's II-XII intact bilaterally and moves all extremities Psych mental status grossly normal, thought process normal and cooperative Activity / Motor Behavior: appropriate eye contact Mood & Affect: flat affect Charges/Coding Visit Charges Inpatient E&M: 33256 Subs Hosp L3
[2021-07-09] MEDS: Furosemide 40 MG/4 ML Vial IV (09:23)
[2021-07-09] MEDS: Enoxaparin 40 MG/0.4 ML Syringe SC ×2 (09:23→22:14)
[2021-07-09] MEDS: Senna/Docusate Sodium 1 Tablet 2 TABLET PO ×2 (09:24→22:14)
[2021-07-09] MEDS: guaiFENesin 1,200 MG Tablet 1200 MG PO ×2 (09:25→22:14)
[2021-07-09] MEDS: dexAMETHasone 10 MG/ML Vial 6 MG IV (09:25)
[2021-07-09] MEDS: Losartan Potassium 25 MG Tablet PO (09:25)
[2021-07-09] MEDS: Empagliflozin 25 MG Tablet PO (09:25)
--- NOTE | 2021-07-09 10:33 | PN.HOSP_ITS ---
Subjective Subjective Follow-up on acute respiratory failure/Acute COVID-19 pneumonia: Patient was seen and examined. Patient could not tolerate the Bipap yesterday. She is on Airvo. Objective Data Objective Data Vital Signs: Vital Signs Temp Pulse Resp BP Pulse Ox 98.7 F 81 20 H 133/78 H 97 07/09/21 08:00 07/09/21 08:00 07/09/21 08:00 07/09/21 08:00 07/09/21 08:00 Oxygen Flow Rate (L/min) 96 Oxygen Delivery Method Airvo Weight: 91.5 kg Body Mass Index (BMI) 32.4 Intake & Output: Intake and Output for Last 24 Hours 07/07/21 07/08/21 07/09/21 23:59 23:59 23:59 Intake Total 3450 / 3450 1999 / 1999 Output Total 2825 / 4625 4100 / 5000 900 / 900 Balance 625 / -1175 -2100 / -3000 -900 / -900 Lab / Micro Data Result Diagrams: 07/09/21 05:30 07/09/21 05:30 Labs: Laboratory Results - last 24 hr 07/08/21 11:47: POC Glucose 206 H 07/08/21 17:29: POC Glucose 230 H 07/08/21 21:26: POC Glucose 169 H 07/09/21 05:30: WBC 11.5 H, RBC 5.04, Hgb 15.5, Hct 46.2, MCV 91.7, MCH 30.8, MCHC 33.5, RDW Std Deviation 42.2, RDW Coeff of Mamadou 12.5, Plt Count 350, MPV 10.3, Immature Gran % (Auto) 1.600 H, Neut % (Auto) 71.0 H, Lymph % (Auto) 18.6 L, Gordon % (Auto) 8.2, Eos % (Auto) 0.0, Baso % (Auto) 0.6, Absolute Neuts (auto) 8.2 H, Absolute Lymphs (auto) 2.14, Nucleated RBC % 0, Differential Comment SCANNED 07/09/21 05:30: Sodium 138, Potassium 4.5, Chloride 102, Carbon Dioxide 30.0, Anion Gap 6, BUN 27 H, Creatinine 0.74, Estim Creat Clear Calc 110.41, Est GFR (MDRD) Af Amer 141, Est GFR (MDRD) Non-Af 117, BUN/Creatinine Ratio 36.3 H, Glucose 111 H, Calcium 8.7, Total Bilirubin 0.70, AST 34, ALT 28, Alkaline Phosphatase 64, Total Protein 7.4, Albumin 2.7 L, Globulin 4.7 H, Albumin/Globulin Ratio 0.6 L Micro: Microbiology 07/05/21 19:15 Blood Culture (Wb) - Anticubital Right Blood Culture - Preliminary No growth in 48 hours. 07/05/21 19:00 Blood Culture (Wb) - Anticubital Left Blood Culture - Preliminary No growth in 48 hours. 07/05/21 19:10 Nasal Secretion SARS-CoV-2 Antigen (Rapid) - Final SARS-CoV-2 (COVID 19) Physical Exam Narrative Physical exam: General: Alert, Oriented x3, Cooperative, appears comfortable on Airvo HEENT: Atraumatic Oral: Moist Mucosa Neck: Supple Lungs: Diminished to auscultation Cardiovascular: HS I+II, regular, no murmurs Abdomen: Bowel Sounds Present, Soft, Non Tender Extremities: No edema Assessment & Plan Assessment/Plan (1) Respiratory failure: QUALIFIERS: Chronicity: acute Respiratory failure complication: hypoxia Qualified Code(s): J96.01 - Acute respiratory failure with hypoxia (2) Pneumonia due to COVID-19 virus: (3) Obesity: QUALIFIERS: Body mass index: BMI 33.0-33.9 Obesity classification: adult class 1 (BMI 30 - 34.9) Obesity type: due to excess calories Serious obesity comorbidity presence: with serious comorbidity Qualified Code(s): E66.09 - Other obesity due to excess calories; Z68.33 - Body mass index [BMI] 33.0-33.9, adult (4) Microalbuminuria due to type 2 diabetes mellitus: (5) Benign hypertension: PLAN: 1. Acute hypoxic respiratory failure secondary to acute COVID-19 pneumonia Remains on Airvo/BiPAP Patient is unvaccinated Admitting chest x-ray showed bilateral infiltrates. CTA chest showed no acute PE Continue on remdesivir, dexamethasone, baricitinib Pulmonary and ID following 2. Type II DM, blood glucose is fairly controlled Continue on Jardiance, Humalog 50-50, insulin sliding scale with blood glucose checks 3. Rest of his chronic medical conditions including hypertension/hyperlipide jason/obesity remained stable Continue on losartan, atorvastatin Charges/Coding Visit Charges Inpatient E&M: 18276 Subs Hosp L2
[2021-07-09] MEDS: Insulin Lispro 100 UNIT/ML INSULN.PEN SC ×2 (11:50→16:14)
[2021-07-09 11:55] LABS: Bedside Glucose 195 mg/dL (70-110)
[2021-07-09 18:16] LABS: Bedside Glucose 220 mg/dL (70-110)
--- NOTE | 2021-07-09 19:50 | CPS ---
Patient refusing to wear bipap tonight. HOSPITAL SUPERVISOR explained that his settings on AirVo were close to the max with limited changes that can be made if oxygen issues were to occur. Patient understands this after discussion. Would like to only wear BiPAP tonight if issues arise and no other changes can be made on AirVo.
[2021-07-09] MEDS: Atorvastatin Calcium 10 MG Tablet 5 MG PO (22:13)
[2021-07-09] MEDS: 0.9% Saline Lock 10 ML Syringe IV (22:14)
[2021-07-09 23:26] LABS: Bedside Glucose 136 mg/dL (70-110)
[2021-07-10] VITALS (18 sets, daily range): BP systolic 99–145; BP diastolic 71–94; PULSE 65–100; RESP 12–28; TEMP 36.4–36.7; O2SAT 92–97
[2021-07-10 06:00] LABS: Absolute Lymphocyte Count 1.94 X10^3/uL (0.83-4.51); Absolute Neutrophil Count 10.6 X10^3/uL (2.0-7.7); Basophil# 0.04 X10^3/uL; Basophil% 0.3 % (0-1); Eosinophil# 0.01 X10^3/uL; Eosinophils% 0.1 % (0-5); Hematocrit 47.1 % (40-54); Hemoglobin 16.2 g/dL (13.0-16.5); Lymphocyte # 1.94 X10^3/ul (0.83-4.51); Lymphocyte % 14.6 % (19-41); Mean Corp Hgb Conc 34.4 g/dL (32-36); Mean Corpuscular Volume 90.1 fL (80-94); Monocyte# 0.54 X10^3/uL; Monocyte% 4.1 % (0-10); NRBC Flagged by Analyzer 0 % (0-5); Neutrophil % 79.4 % (47-70); Platelet Count 359 K/mm3 (150-450); RBC Distribution Width CV 12.2 % (11.6-14.6); RBC Distribution Width SD 40.7 fl (35.1-43.9); Red Blood Count 5.23 M/mm3 (4.6-6.2); White Blood Count 13.3 K/mm3 (4.4-11.0)
[2021-07-10 06:28] LABS: ALB/GLOB Ratio 0.6 RATIO (0.9-2.4); AST(SGOT) 35 U/L (15-37); Alanine Aminotransfer ALT/SGPT 29 U/L (16-61); Albumin, Serum 2.8 g/dL (3.2-5.0); Alkaline Phosphatase 66 U/L (45-117); Anion Gap 10 (5-15); BUN 31 mg/dL (7-18); BUN/Creat Ratio 43.1 RATIO (10-20); Calcium,Total 8.8 mg/dL (8.5-10.1); Chloride 100 mmol/L (98-107); Creatinine, Serum 0.72 mg/dL (0.70-1.30); EST Glomerular Filtration Rate 121 mL/min (>60); Est Glom Filt Rate - Afr Amer 146 mL/min (>60); Estimated Creatinine Clearance 113.47 ml/min; Globulin 4.9 g/dL (2.2-4.2); Glucose 105 mg/dL (74-106); Potassium 3.8 mmol/L (3.5-5.1); Protein, Total 7.7 g/dL (6.4-8.2); Sodium Level 136 mmol/L (136-145)
--- NOTE | 2021-07-10 08:06 | PN.HOSP_ITS ---
Subjective Subjective Follow-up on acute respiratory failure/Acute COVID-19 pneumonia: Patient was seen and examined. Patient remains on Airvo. Denies any new complains. Objective Data Objective Data Vital Signs: Vital Signs Temp Pulse Resp BP Pulse Ox 97.6 F L 80 28 H 142/94 H 95 07/10/21 04:05 07/10/21 05:45 07/10/21 05:45 07/10/21 04:05 07/10/21 05:45 Oxygen Flow Rate (L/min) 96 Oxygen Delivery Method Bi-pap Weight: 91.5 kg Body Mass Index (BMI) 32.4 Intake & Output: Intake and Output for Last 24 Hours 07/08/21 07/09/21 07/10/21 23:59 23:59 23:59 Intake Total 1999 / 1999 1750 / 1750 1550 / 1550 Output Total 4100 / 5000 4000 / 4000 1000 / 1000 Balance -2100 / -3000 -2250 / -2250 550 / 550 Lab / Micro Data Result Diagrams: 07/10/21 05:38 07/10/21 05:38 Labs: Laboratory Results - last 24 hr 07/09/21 11:47: POC Glucose 195 H 07/09/21 16:12: POC Glucose 220 H 07/09/21 22:05: POC Glucose 136 H 07/10/21 05:38: WBC 13.3 H, RBC 5.23, Hgb 16.2, Hct 47.1, MCV 90.1, MCH 31.0, MCHC 34.4, RDW Std Deviation 40.7, RDW Coeff of Mamadou 12.2, Plt Count 359, MPV 10.0, Immature Gran % (Auto) 1.500 H, Neut % (Auto) 79.4 H, Lymph % (Auto) 14.6 L, [place] % (Auto) 4.1, Eos % (Auto) 0.1, Baso % (Auto) 0.3, Absolute Neuts (auto) 10.6 H, Absolute Lymphs (auto) 1.94, Nucleated RBC % 0 07/10/21 05:38: Sodium 136, Potassium 3.8, Chloride 100, Carbon Dioxide 26.0, Anion Gap 10, BUN 31 H, Creatinine 0.72, Estim Creat Clear Calc 113.47, Est GFR (MDRD) Af Amer 146, Est GFR (MDRD) Non-Af 121, BUN/Creatinine Ratio 43.1 H, Glucose 105, Calcium 8.8, Total Bilirubin 0.80, AST 35, ALT 29, Alkaline Horacio sphatase 66, Total Protein 7.7, Albumin 2.8 L, Globulin 4.9 H, Albumin/Globulin Ratio 0.6 L Micro: Microbiology 07/05/21 19:15 Blood Culture (Wb) - Anticubital Right Blood Culture - Preliminary No growth in 48 hours. 07/05/21 19:00 Blood Culture (Wb) - Anticubital Left Blood Culture - Preliminary No growth in 48 hours. 07/05/21 19:10 Nasal Secretion SARS-CoV-2 Antigen (Rapid) - Final SARS-CoV-2 (COVID 19) Physical Exam Narrative Physical exam: General: Alert, Oriented x3, Cooperative, appears comfortable on Airvo HEENT: Atraumatic Oral: Moist Mucosa Neck: Supple Lungs: Diminished to auscultation Cardiovascular: HS I+II, regular, no murmurs Abdomen: Bowel Sounds Present, Soft, Non Tender Extremities: No edema Assessment & Plan Assessment/Plan (1) Respiratory failure: QUALIFIERS: Chronicity: acute Respiratory failure complication: hypoxia Qualified Code(s): J96.01 - Acute respiratory failure with hypoxia (2) Pneumonia due to COVID-19 virus: (3) Obesity: QUALIFIERS: Body mass index: BMI 33.0-33.9 Obesity classification: adult class 1 (BMI 30 - 34.9) Obesity type: due to excess calories Serious obesity comorbidity presence: with serious comorbidity Qualified Code(s): E66.09 - Other obesity due to excess calories; Z68.33 - Body mass index [BMI] 33.0-33.9, adult (4) Microalbuminuria due to type 2 diabetes mellitus: (5) Benign hypertension: PLAN: Summary: 56-year-old male, unvaccinated who comes to the hospital with acute COVID-19 pneumonia. 1. Acute hypoxic respiratory failure secondary to acute COVID-19 pneumonia Remains on Airvo/BiPAP. Patient is unvaccinated Admitting chest x-ray showed bilateral infiltrates. CTA chest showed no acute PE Continue on remdesivir, dexamethasone, baricitinib Pulmonary and ID following 2. Type II DM, blood glucose is fairly controlled Continue on Jardiance, Humalog 50-50, insulin sliding scale with blood glucose checks 3. Rest of his chronic medical conditions including hypertension/hyperlipidemia/obesity remained stable Continue on losartan, atorvastatin Charges/Coding Visit Charges Inpatient E&M: 68544 Subs Hosp L2
[2021-07-10] MEDS: Senna/Docusate Sodium 1 Tablet 2 TABLET PO ×2 (08:17→21:12)
[2021-07-10] MEDS: guaiFENesin 1,200 MG Tablet 1200 MG PO ×2 (08:17→21:11)
[2021-07-10] MEDS: Losartan Potassium 25 MG Tablet PO (08:17)
[2021-07-10] MEDS: Empagliflozin 25 MG Tablet PO (08:17)
[2021-07-10] MEDS: Enoxaparin 40 MG/0.4 ML Syringe SC ×2 (08:18→21:11)
[2021-07-10] MEDS: 0.9% Saline Lock 10 ML Syringe IV (08:18)
[2021-07-10] MEDS: dexAMETHasone 10 MG/ML Vial 6 MG IV (08:18)
--- NOTE | 2021-07-10 08:27 | PN.CC_ITS ---
Assessment & Plan Assessment/Plan (1) Respiratory failure with hypoxia: (2) Pneumonia due to COVID-19 virus: (3) Diabetes: QUALIFIERS: Diabetes mellitus type: type 2 Diabetes mellitus rat exterminator insulin use: without rat exterminator use Diabetes mellitus complication status: with hyperglycemia Qualified Code(s): E11.65 - Type 2 diabetes mellitus with hyperglycemia PLAN: RECOMMENDATIONS: 1. Continue Decadron (07/15/2021), baricitinib (07/19/2021). Completed Remdesivir 2. Monitor for complications of medical therapy 3. Continue BiPAP with sleep and Airvo during the day. Continue nasal saline 4. Agree with intermittent Lasix as tolerates. Challenge today 5. Wean oxygen as tolerated 6. Encourage incentive spirometer, Acapella and prone positioning as tolerated 7. Obtain sputum and blood cultures with a any fever IMPRESSIONS: 1. Acute hypoxic respiratory failure secondary to COVID-19 Patient does not have any PE on CTA of the chest, but extensive groundglass opacities are appreciated. Patient is appropriately on Decadron, baricitinib and Remdesivir. We will have to watch closely for complications of therapy. Patient has had some decrease in white blood cell count on admission, but appears to be improving. Continue to wean FiO2 as tolerated. Patient should use Airvo during the day to facilitate p.o. intake. Would recommend continuing BiPAP with sleep. Will continue nasal saline given nasal congestion. Did encourage incentive spirometer, Acapella and prone positioning as tolerated. Panculture could be obtained to evaluate for secondary infection. Blood cultures are no growth to date. Patient is slowly improving. Patient is still requiring significant FiO2 by Airvo during the day, so BiPAP with sleep will be optimal. Patient has not been very amenable to prone positioning. 2. Nonvaccinated status/obesity/hypertension/diabetes/hyperlipidemia Complicates care, management, recovery and prognosis. Anticipate significant hyperglycemia given Decadron therapy. Will adjust insulin as tolerated. May need to hold losartan if patient starts to develop renal dysfunction. Okay to continue with baseline statin. Defer to hospitalist on possible cream for buttock. Subjective Subjective Patient did okay overnight. No acute issues are reported. Patient did report some difficulty with tolerating BiPAP. Patient reports some discomfort of his butt and is wondering if a cream may help. Nursing is not reporting any decubitus ulcers or erythema. Objective Data Objective Data Vital Signs: Vital Signs Temp Pulse Resp BP Pulse Ox 36.4 C L 80 28 H 142/94 H 94 07/10/21 04:05 07/10/21 05:45 07/10/21 05:45 07/10/21 04:05 07/10/21 08:06 Oxygen Flow Rate (L/min) 55 Oxygen Delivery Method Airvo Weight: 91.5 kg Body Mass Index (BMI) 32.4 Intake & Output: Intake and Output for Last 24 Hours 07/08/21 07/09/21 07/10/21 23:59 23:59 23:59 Intake Total 1999 / 1999 1750 / 1750 1550 / 1550 Output Total 4100 / 5000 4000 / 4000 1000 / 1000 Balance -2100 / -3000 -2250 / -2250 550 / 550 Lab / Micro Data Result Diagrams: 07/10/21 05:38 07/10/21 05:38 Labs: Laboratory Results - last 24 hr 07/09/21 11:47: POC Glucose 195 H 07/09/21 16:12: POC Glucose 220 H 07/09/21 22:05: POC Glucose 136 H 07/10/21 05:38: WBC 13.3 H, RBC 5.23, Hgb 16.2, Hct 47.1, MCV 90.1, MCH 31.0, MCHC 34.4, RDW Std Deviation 40.7, RDW Coeff of Mamadou 12.2, Plt Count 359, MPV 10.0, Immature Gran % (Auto) 1.500 H, Neut % (Auto) 79.4 H, Lymph % (Auto) 14.6 L, [place] % (Auto) 4.1, Eos % (Auto) 0.1, Baso % (Auto) 0.3, Absolute Neuts (auto) 10.6 H, Absolute Lymphs (auto) 1.94, Nucleated RBC % 0 07/10/21 05:38: Sodium 136, Potassium 3.8, Chloride 100, Carbon Dioxide 26.0, Anion Gap 10, BUN 31 H, Creatinine 0.72, Estim Creat Clear Calc 113.47, Est GFR (MDRD) Af Amer 146, Est GFR (MDRD) Non-Af 121, BUN/Creatinine Ratio 43.1 H, Glucose 105, Calcium 8.8, Total Bilirubin 0.80, AST 35, ALT 29, Alkaline Phosphatase 66, Total Protein 7.7, Albumin 2.8 L, Globulin 4.9 H, Albumin/Globul in Ratio 0.6 L Micro: Microbiology 07/05/21 19:15 Blood Culture (Wb) - Anticubital Right Blood Culture - Preliminary No growth in 48 hours. 07/05/21 19:00 Blood Culture (Wb) - Anticubital Left Blood Culture - Preliminary No growth in 48 hours. 07/05/21 19:10 Nasal Secretion SARS-CoV-2 Antigen (Rapid) - Final SARS-CoV-2 (COVID 19) Physical Exam Const alert and oriented x3 Constitutional Narrative: On Airvo General Appearance: cooperative and comfortable Nutritional Appearance: obese HEENT normocephalic and head/scalp atraumatic Mouth: oral and palatal mucosa normal Eyes PERRL, EOMs intact bilaterally and no scleral icterus Sclera: No sclera abnormal Neck full ROM Lymph Lymphatic: no lymphadenopathy noted Chest inspection of chest normal Chest: symmetrical chest wall rise; Negative for crepitus Resp Effort and Inspection: tachypneic Auscultation: diminished lung sounds; Negative for rales, rhonchi or wheezes Cardio regular rate, regular rhythm, S1 normal heart sound, S2 normal heart sound, no murmurs, no rub and no gallops GI normal to inspection, nondistended, normoactive bowel sounds Extremity General Extremity: Negative for clubbing or edema Skin no rashes or lesions noted Neuro oriented x3, CN's II-XII intact bilaterally and moves all extremities Psych mental status grossly normal, thought process normal and cooperative Activity / Motor Behavior: appropriate eye contact Mood & Affect: flat affect Charges/Coding Visit Charges Inpatient E&M: 79278 Subs Hosp L3
[2021-07-10 08:41] LABS: Bedside Glucose 101 mg/dL (70-110)
[2021-07-10] MEDS: Insulin Lispro 100 UNIT/ML INSULN.PEN SC ×2 (11:24→15:53)
[2021-07-10 11:30] LABS: Bedside Glucose 186 mg/dL (70-110)
[2021-07-10] MEDS: Nystatin Powder 15gm Bottle 1 APPLIC TOPICAL ×2 (14:34→21:12)
[2021-07-10 16:06] LABS: Bedside Glucose 207 mg/dL (70-110)
[2021-07-10] MEDS: Atorvastatin Calcium 10 MG Tablet 5 MG PO (21:11)
[2021-07-10] MEDS: MELATONIN 3 MG TABLET PO (21:12)
[2021-07-10] MEDS: Acetaminophen 325 MG Tablet 650 MG PO (21:13)
[2021-07-10 21:30] LABS: Bedside Glucose 113 mg/dL (70-110)
[2021-07-11] VITALS (17 sets, daily range): BP systolic 105–140; BP diastolic 71–86; PULSE 70–102; RESP 12–26; TEMP 36.3–37; O2SAT 89–98
[2021-07-11 08:16] LABS: Bedside Glucose 109 mg/dL (70-110)
[2021-07-11] MEDS: Empagliflozin 25 MG Tablet PO (08:39)
[2021-07-11] MEDS: dexAMETHasone 10 MG/ML Vial 6 MG IV (08:39)
[2021-07-11] MEDS: Senna/Docusate Sodium 1 Tablet 2 TABLET PO ×2 (08:41→21:41)
[2021-07-11] MEDS: Nystatin Powder 15gm Bottle 1 APPLIC TOPICAL ×2 (08:41→21:42)
[2021-07-11] MEDS: Losartan Potassium 25 MG Tablet PO (08:41)
[2021-07-11] MEDS: Enoxaparin 40 MG/0.4 ML Syringe SC ×2 (08:41→21:42)
[2021-07-11] MEDS: guaiFENesin 1,200 MG Tablet 1200 MG PO ×2 (08:41→21:41)
[2021-07-11 08:53] LABS: Absolute Lymphocyte Count 2.01 X10^3/uL (0.83-4.51); Absolute Neutrophil Count 10.6 X10^3/uL (2.0-7.7); Basophil# 0.06 X10^3/uL; Basophil% 0.5 % (0-1); Eosinophil# 0.01 X10^3/uL; Eosinophils% 0.1 % (0-5); Hemoglobin 16.5 g/dL (13.0-16.5); Lymphocyte # 2.01 X10^3/ul (0.83-4.51); Lymphocyte % 15.1 % (19-41); Mean Corp Hgb Conc 34.4 g/dL (32-36); Mean Corpuscular Hgb 31.5 pg (27.0-32.0); Mean Corpuscular Volume 91.6 fL (80-94); Mean Platelet Vol. 10.7 fl (6.2-12.0); Monocyte% 3.8 % (0-10); NRBC Flagged by Analyzer 0 % (0-5); Neutrophil % 79.4 % (47-70); Platelet Count 348 K/mm3 (150-450); RBC Distribution Width CV 12.3 % (11.6-14.6); RBC Distribution Width SD 41.1 fl (35.1-43.9); Red Blood Count 5.24 M/mm3 (4.6-6.2); White Blood Count 13.3 K/mm3 (4.4-11.0)
[2021-07-11] MEDS: Acetaminophen 325 MG Tablet 650 MG PO (09:11)
[2021-07-11 09:17] LABS: ALB/GLOB Ratio 0.6 RATIO (0.9-2.4); AST(SGOT) 37 U/L (15-37); Alanine Aminotransfer ALT/SGPT 28 U/L (16-61); Albumin, Serum 2.8 g/dL (3.2-5.0); Alkaline Phosphatase 64 U/L (45-117); Anion Gap 13 (5-15); BUN 30 mg/dL (7-18); BUN/Creat Ratio 40.6 RATIO (10-20); Calcium,Total 8.7 mg/dL (8.5-10.1); Chloride 99 mmol/L (98-107); Creatinine, Serum 0.74 mg/dL (0.70-1.30); EST Glomerular Filtration Rate 117 mL/min (>60); Est Glom Filt Rate - Afr Amer 142 mL/min (>60); Estimated Creatinine Clearance 110.41 ml/min; Globulin 4.9 g/dL (2.2-4.2); Glucose 94 mg/dL (74-106); Potassium 4.4 mmol/L (3.5-5.1); Protein, Total 7.7 g/dL (6.4-8.2); Sodium Level 135 mmol/L (136-145)
[2021-07-11 12:01] LABS: Bedside Glucose 136 mg/dL (70-110)
--- NOTE | 2021-07-11 13:04 | CHAPLAIN ---
Type of Pastoral Visit ___ Initial Visit ___ Follow-up Visit ___ On-call Visit ___ General Patient Visit ___ Spiritual Assessment ___ Family Conference ___ Bereavement ___ Rapid Response ___ Code Blue _x__ Other (describe below) Pastoral Care Referral From _x__ Patient ___ Family ___ Nurse ___ Physician ___ Side Laster Tack ___ Emergency Registrar ___ Other (describe below) Sacrament/Intervention _x__ Active listening ___ Anointing ___ Gnosticist ___ Bereavement ___ Communion _x__ Arabella exploration ___ ___ Life review ___ Prayer ___ Reconciliation ___ Sacrament of Sick ___ Supportive presence ___ Wedding ___ Other (describe below) Pastoral Comments patient requested a Bible
--- NOTE | 2021-07-11 13:33 | PN.CC_ITS ---
Assessment & Plan Assessment/Plan (1) Respiratory failure with hypoxia: (2) Pneumonia due to COVID-19 virus: (3) Diabetes: QUALIFIERS: Diabetes mellitus complication status: with hyper glycemia Diabetes mellitus long term care phlebotomist insulin use: without long term care phlebotomist use Diabetes mellitus type: type 2 Qualified Code(s): E11.65 - Type 2 diabetes mellitus with hyperglycemia PLAN: RECOMMENDATIONS: 1. Continue Decadron (07/15/2021), baricitinib (07/19/2021). Completed Remdesivir 2. Wean FiO2 to maintain oxygen saturations at or above 90%. 3. Diuretics, as needed, to maintain euvolemic state. 4. Continue Lovenox as ordered. 5. Encourage incentive spirometer use and mobilize patient as tolerated. IMPRESSIONS: 1. Acute hypoxic respiratory failure secondary to COVID-19 The patient was initially admitted to the hospital on July 05 with shortness of breath and hypoxemia. The patient is currently stable from a respiratory perspective on heated high flow oxygen. Plan to continue to wean FiO2 as tole rated for saturations greater than 90%. The patient has already completed a treatment course of remdesivir and will remain on Decadron and baricitinib per ID recommendations. CTA was negative for PE. Therefore, we will continue prophylactic Lovenox. Diuretics can be utilized as needed to maintain euvolemic state. Encourage incentive spirometer use and mobilize patient as tolerated. 2. Nonvaccinated status/obesity/hypertension/diabetes/hyperlipidemia Complicates care, management, recovery and prognosis. Continue home medications as indicated. This note was generated with [employer] dictation software. It may contain incorrect words, spelling, and punctuation that were not noted in checking the note before signing. Subjective Subjective The patient was seen and examined at the bedside this morning. Events from the last 24 hours have been reviewed. The patient is currently afebrile, hemodynamically stable and maintaining appropriate oxygen saturations on Airvo heated high flow with an FiO2 requirement of 93% and flow rate of 60 L/min. The patient remains on Decadron, baricitinib and Lovenox. Liver and renal function are stable. The patient did report having difficulty with BiPAP on a nightly basis due to the fit of the mask. Objective Data Objective Data The patient's most recent lab work, culture data and imaging studies have all been personally reviewed. Rapid coronavirus antigen testing was positive on July 05. Sputum culture is currently pending. Vital Signs: Vital Signs Temp Pulse Resp BP Pulse Ox 97.5 F L 84 16 127/74 H 94 07/11/21 11:42 07/11/21 11:42 07/11/21 11:42 07/11/21 11:42 07/11/21 11:42 Oxygen Flow Rate (L/min) 60 Oxygen Delivery Method Airvo Weight: 91.5 kg Body Mass Index (BMI) 32.4 Intake & Output: Intake and Output for Last 24 Hours 07/09/21 07/10/21 07/11/21 23:59 23:59 23:59 Intake Total 1750 / 1750 2900 / 2900 1650 / 1650 Output Total 4000 / 4000 1000 / 1000 1300 / 1300 Balance -2250 / -2250 1900 / 1900 350 / 350 Lab / Micro Data Attestation: I reviewed the patient's lab results. Result Diagrams: 07/11/21 08:12 07/11/21 08:12 Labs: Laboratory Results - last 24 hr 07/10/21 15:52: POC Glucose 207 H 07/10/21 21:10: POC Glucose 113 H 07/11/21 07:50: POC Glucose 109 07/11/21 08:12: WBC 13.3 H, RBC 5.24, Hgb 16.5, Hct 48.0, MCV 91.6, MCH 31.5, MCHC 34.4, RDW Std Deviation 41.1, RDW Coeff of Mamadou 12.3, Plt Count 348, MPV 10.7, Immature Gran % (Auto) 1.100 H, Neut % (Auto) 79.4 H, Lymph % (Auto) 15.1 L, [place] % (Auto) 3.8, Eos % (Auto) 0.1, Baso % (Auto) 0.5, Absolute Neuts (auto) 10.6 H, Absolute Lymphs (auto) 2.01, Nucleated RBC % 0 07/11/21 08:12: Sodium 135 L, Potassium 4.4, Chloride 99, Carbon Dioxide 23.0, Anion Gap 13, BUN 30 H, Creatinine 0.74, Estim Creat Clear Calc 110.41, Est GFR (MDRD) Af Amer 142, Est GFR (MDRD) Non-Af 117, BUN/Creatinine Ratio 40.6 H, Glucose 94, Calcium 8.7, Total Bilirubin 0.80, AST 37, ALT 28, Alkaline Phosphatase 64, Total Protein 7.7, Albumin 2.8 L, Globulin 4.9 H, Albumin/Globulin Ratio 0.6 L 07/11/21 11:36: POC Glucose 136 H Micro: Microbiology 07/05/21 19:15 Blood Culture (Wb) - Anticubital Right Blood Culture - Final No growth in 5 days. 07/05/21 19:00 Blood Culture (Wb) - Anticubital Left Blood Culture - Final No growth in 5 days. 07/05/21 19:10 Nasal Secretion SARS-CoV-2 Antigen (Rapid) - Final SARS-CoV-2 (COVID 19) Physical Exam Const alert and no apparent distress Constitutional Narrative: Sitting in bedside recliner. General Appearance: cooperative Nutritional Appearance: obese HEENT normocephalic and head/scalp atraumatic Eyes PERRL, EOMs intact bilaterally and conjunctivae normal Neck supple General: trachea midline Chest inspection of chest normal Resp Auscultation: diminished lung sounds; Negative for rales, rhonchi or wheezes Cardio regular rate and regular rhythm GI normal to inspection, nondistended, normoactive bowel sounds Extremity no clubbing, cyanosis or edema Skin no rashes or lesions noted Neuro CN's II-XII intact bilaterally, moves all extremities and no focal motor deficits Psych Mood & Affect: flat affect Charges/Coding Visit Charges Inpatient E&M: 34399 Subs Hosp L3
[2021-07-11 16:55] LABS: Bedside Glucose 182 mg/dL (70-110)
[2021-07-11] MEDS: Insulin Lispro 100 UNIT/ML INSULN.PEN SC ×2 (16:56→21:41)
--- NOTE | 2021-07-11 19:13 | PN.HOSP_ITS ---
Subjective Subjective Patient was seen and examined today, he is currently on Airvo at 91%, patient denies any fevers or chills. Objective Data Objective Data Vital Signs: Vital Signs Temp Pulse Resp BP Pulse Ox 97.8 F 84 18 105/71 94 07/11/21 16:30 07/11/21 16:30 07/11/21 16:30 07/11/21 16:30 07/11/21 16:30 Oxygen Flow Rate (L/min) 60 Oxygen Delivery Method Airvo Weight: 91.5 kg Body Mass Index (BMI) 32.4 Intake & Output: Intake and Output for Last 24 Hours 07/09/21 07/10/21 07/11/21 23:59 23:59 23:59 Intake Total 1750 / 1750 2900 / 2900 2350 / 2350 Output Total 4000 / 4000 1000 / 1000 2300 / 2300 Balance -2250 / -2250 1900 / 1900 50 / 50 Lab / Micro Data Result Diagrams: 07/11/21 08:12 07/11/21 08:12 Labs: Laboratory Results - last 24 hr 07/10/21 21:10: POC Glucose 113 H 07/11/21 07:50: POC Glucose 109 07/11/21 08:12: WBC 13.3 H, RBC 5.24, Hgb 16.5, Hct 48.0, MCV 91.6, MCH 31.5, MCHC 34.4, RDW Std Deviation 41.1, RDW Coeff of Mamadou 12.3, Plt Count 348, MPV 10.7, Immature Gran % (Auto) 1.100 H, Neut % (Auto) 79.4 H, Lymph % (Auto) 15.1 L, [place] % (Auto) 3.8, Eos % (Auto) 0.1, Baso % (Auto) 0.5, Absolute Neuts (auto) 10.6 H, Absolute Lymphs (auto) 2.01, Nucleated RBC % 0 07/11/21 08:12: Sodium 135 L, Potassium 4.4, Chloride 99, Carbon Dioxide 23.0, Anion Gap 13, BUN 30 H, Creatinine 0.74, Estim Creat Clear Calc 110.41, Est GFR (MDRD) Af Amer 142, Est GFR (MDRD) Non-Af 117, BUN/Creatinine Ratio 40.6 H, Glucose 94, Calcium 8.7, Total Bilirubin 0.80, AST 37, ALT 28, Alkaline Phosphatase 64, Total Protein 7.7, Albumin 2.8 L, Globulin 4.9 H, Albumin/Luanne bulin Ratio 0.6 L 07/11/21 11:36: POC Glucose 136 H 07/11/21 16:27: POC Glucose 182 H Micro: Microbiology 07/11/21 10:30 Sputum, Expectorated/Coughed Gram Stain - Final 07/05/21 19:15 Blood Culture (Wb) - Anticubital Right Blood Culture - Final No growth in 5 days. 07/05/21 19:00 Blood Culture (Wb) - Anticubital Left Blood Culture - Final No growth in 5 days. 07/05/21 19:10 Nasal Secretion SARS-CoV-2 Antigen (Rapid) - Final SARS-CoV-2 (COVID 19) Physical Exam Const alert, oriented x3 and no apparent distress General Appearance: cooperative, well kempt and well developed Orientation / Consciousness: awake, oriented to person, oriented to place and oriented to time HEENT normocephalic, head/scalp atraumatic and moist oral mucous membranes Head and Scalp: normocephalic Eyes PERRL, EOMs intact bilaterally and conjunctivae normal Neck nuchal rigidity, supple, no JVD, thyroid normal and no carotid bruits General: trachea midline Resp normal respiratory effort, no retractions, no use of accessory muscles and clear to auscultation bilaterally Auscultation: Negative for rales, rhonchi or wheezes Cardio regular rate, regular rhythm, S1 normal heart sound, S2 normal heart sound, no murmurs, no rub and no gallops GI normal to inspection, nondistended, normoactive bowel sounds, soft to palpation, non-tender and non-distended Extremity no clubbing, cyanosis or edema Skin no rashes or lesions noted General Skin Exam: no breakdown Neuro oriented x3, CN's II-XII intact bilaterally, no focal motor deficits and no sensory deficits noted Sensorium / Orientation: awake and alert Speech: speech normal Psych thought process normal and affect normal Assessment & Plan Assessment/Plan (1) Pneumonia due to COVID-19 virus: PLAN: 1. COVID-19 pneumonia-patient is currently receiving dexamethasone as well as baricitinib, patient finished his course of remdesivir #2 acute hypoxic respiratory failure secondary to #1-patient's pulse ox will be monitored #3 type 2 diabetes-patient's blood sugars will be monitored, patient is on insulin #4 essential hypertension Charges/Coding Visit Charges Inpatient E&M: 52416 Subs Hosp L2
[2021-07-11] MEDS: Atorvastatin Calcium 10 MG Tablet 5 MG PO (21:41)
[2021-07-11 22:21] LABS: Bedside Glucose 159 mg/dL (70-110)
[2021-07-12] VITALS (9 sets, daily range): BP systolic 103–126; BP diastolic 71–77; PULSE 75–100; RESP 18–24; TEMP 36.6–37.8; O2SAT 91–100
--- NOTE | 2021-07-12 03:49 | NURSING ---
Pt calls reporting he is uncomfortable. Currently in prone position and using elbows to hold himself up. Instructed pt he may place his ear on his pillow and this nurse placed a second pillow for pt to rest on. Pt verbalizes increased comfort. Airvo in place. Denies any further needs. Call light w/ in reach. Will continue to monitor.
[2021-07-12 08:00] LABS: Absolute Lymphocyte Count 0.71 X10^3/uL (0.83-4.51); Absolute Neutrophil Count 9.9 X10^3/uL (2.0-7.7); Basophil# 0.02 X10^3/uL; Basophil% 0.2 % (0-1); Eosinophil# 0.08 X10^3/uL; Eosinophils% 0.7 % (0-5); Hematocrit 42.5 % (40-54); Hemoglobin 14.9 g/dL (13.0-16.5); Lymphocyte # 0.71 X10^3/ul (0.83-4.51); Lymphocyte % 6.3 % (19-41); Mean Corp Hgb Conc 35.1 g/dL (32-36); Mean Corpuscular Hgb 31.8 pg (27.0-32.0); Mean Corpuscular Volume 90.6 fL (80-94); Mean Platelet Vol. 10.6 fl (6.2-12.0); Monocyte# 0.45 X10^3/uL; NRBC Flagged by Analyzer 0 % (0-5); Neutrophil # 9.94 X10^3/uL (2.7-7.7); Neutrophil % 87.7 % (47-70); Platelet Count 381 K/mm3 (150-450); RBC Distribution Width CV 12.3 % (11.6-14.6); RBC Distribution Width SD 40.5 fl (35.1-43.9); Red Blood Count 4.69 M/mm3 (4.6-6.2); White Blood Count 11.3 K/mm3 (4.4-11.0)
[2021-07-12 08:37] LABS: ALB/GLOB Ratio 0.5 RATIO (0.9-2.4); AST(SGOT) 30 U/L (15-37); Alanine Aminotransfer ALT/SGPT 26 U/L (16-61); Albumin, Serum 2.4 g/dL (3.2-5.0); Alkaline Phosphatase 57 U/L (45-117); Anion Gap 10 (5-15); BUN 18 mg/dL (7-18); BUN/Creat Ratio 30.6 RATIO (10-20); Calcium,Total 8.6 mg/dL (8.5-10.1); Chloride 99 mmol/L (98-107); Creatinine, Serum 0.59 mg/dL (0.70-1.30); EST Glomerular Filtration Rate 153 mL/min (>60); Est Glom Filt Rate - Afr Amer 185 mL/min (>60); Estimated Creatinine Clearance 138.47 ml/min; Globulin 4.9 g/dL (2.2-4.2); Glucose 79 mg/dL (74-106); Potassium 3.6 mmol/L (3.5-5.1); Protein, Total 7.3 g/dL (6.4-8.2); Sodium Level 133 mmol/L (136-145)
[2021-07-12 09:10] LABS: Bedside Glucose 85 mg/dL (70-110)
[2021-07-12] MEDS: Losartan Potassium 25 MG Tablet PO (10:30)
[2021-07-12] MEDS: dexAMETHasone 10 MG/ML Vial 6 MG IV (10:31)
[2021-07-12] MEDS: Empagliflozin 25 MG Tablet PO (10:32)
[2021-07-12] MEDS: Enoxaparin 40 MG/0.4 ML Syringe SC ×2 (10:32→21:15)
[2021-07-12] MEDS: Nystatin Powder 15gm Bottle 1 APPLIC TOPICAL ×2 (10:33→21:16)
[2021-07-12] MEDS: guaiFENesin 1,200 MG Tablet 1200 MG PO ×2 (10:33→21:15)
[2021-07-12] MEDS: Senna/Docusate Sodium 1 Tablet 2 TABLET PO ×2 (10:34→21:16)
[2021-07-12 13:26] LABS: Bedside Glucose 145 mg/dL (70-110)
--- NOTE | 2021-07-12 14:00 | PCM.PN.INT ---
Assessment & Plan Assessment/Plan (1) Respiratory failure with hypoxia: (2) Pneumonia due to COVID-19 virus: (3) Diabetes: QUALIFIERS: Diabetes mellitus type: type 2 Diabetes mellitus data management engineer insulin use: without data management engineer use Diabetes mellitus complication status: with hyperglycemia Qualified Code(s): E11.65 - Type 2 diabetes mellitus with hyperglycemia PLAN: RECOMMENDATIONS: 1. Continue Decadron (07/15/2021), baricitinib (07/19/2021). Completed Remdesivir. 2. Wean FiO2 to maintain oxygen saturations at or above 90%. 3. Diuretics, as needed, to maintain euvolemic state. Will dose with IV Lasix today. 4. Continue Lovenox as ordered. 5. Encourage incentive spirometer use and mobilize patient as tolerated. IMPRESSIONS: 1. Acute hypoxic respiratory failure secondary to COVID-19 The patient was initially admitted to the hospital on July 05 with shortness of breath and hypoxemia. The patient is currently stable from a respiratory perspective on heated high flow oxygen. Plan to continue to wean FiO2 as tolerated for saturations greater than 90%. The patient has already completed a treatment course of remdesivir and will remain on Decadron and baricitinib per ID recommendations. CTA was negative for PE. Therefore, we will continue prophylactic Lovenox. Diuretics can be utilized as needed to maintain euvolemic state. Encourage incentive spirometer use and mobilize patient as tolerated. If the patient were to worsen further from a respiratory perspective, empiric antimicrobials should be initiated. 2. Nonvaccinated status/obesity/hypertension/diabetes/hyperlipidemia Complicates care, management, recovery and prognosis. Continue home medications as indicated. This note was generated with [employer] dictation software. It may contain incorrect words, spelling, and punctuation that were not noted in checking the note before signing. Subjective Subjective The patient was seen and examined at the bedside this morning. Events from the last 24 hours have been reviewed. The patient is currently afebrile, hemodynamically stable and maintaining appropriate oxygen saturations on Airvo heated high flow with an FiO2 requirement of 90% and flow rate of 60 L/min. The patient is currently documented to be overall net -1.6 L for the hospitalization. He remains on twice daily Lovenox, Decadron and baricitinib. Objective Data Objective Data The patient's most recent lab work, culture data and imaging studies have all been personally reviewed. Rapid coronavirus antigen testing was positive on July 05. Sputum culture is currently pending. Vital Signs: Vital Signs Temp Pulse Resp BP Pulse Ox 100.1 F H 100 18 124/71 H 92 07/12/21 10:18 07/12/21 10:18 07/12/21 10:18 07/12/21 10:18 07/12/21 10:18 Oxygen Flow Rate (L/min) 60 Oxygen Delivery Method Airvo Weight: 91 kg Body Mass Index (BMI) 32.4 Intake & Output: Intake and Output for Last 24 Hours 07/10/21 07/11/21 07/12/21 23:59 23:59 23:59 Intake Total 2900 / 2900 2350 / 2850 800 / 800 Output Total 1000 / 1000 2300 / 3500 1200 / 1200 Balance 1900 / 1900 50 / -650 -400 / -400 Lab / Micro Data Attestation: I reviewed the patient's lab results. Result Diagrams: 07/12/21 06:55 07/12/21 06:55 Labs: Laboratory Results - last 24 hr 07/11/21 16:27: POC Glucose 182 H 07/11/21 21:39: POC Glucose 159 H 07/12/21 06:55: WBC 11.3 H, RBC 4.69, Hgb 14.9, Hct 42.5, MCV 90.6, MCH 31.8, MCHC 35.1, RDW Std Deviation 40.5, RDW Coeff of Mamadou 12.3, Plt Count 381, MPV 10.6, Immature Gran % (Auto) 1.100 H, Neut % (Auto) 87.7 H, Lymph % (Auto) 6.3 L, [place] % (Auto) 4.0, Eos % (Auto) 0.7, Baso % (Auto) 0.2, Absolute Neuts (auto) 9.9 H, Absolute Lymphs (auto) 0.71 L, Nucleated RBC % 0 07/12/21 06:55: Sodium 133 L, Potassium 3.6, Chloride 99, Carbon Dioxide 24.0, Anion Gap 10, BUN 18, Creatinine 0.59 L, Estim Creat Clear Calc 138.47, Est GFR (MDRD) Af Amer 185, Est GFR (MDRD) Non-Af 153, BUN/Creatinine Ratio 30.6 H, Glucose 79, Calcium 8.6, Total Bilirubin 0.70, AST 30, ALT 26, Alkaline Phosphatase 57, Total Protein 7.3, Albumin 2.4 L, Globulin 4.9 H, Albumin/Globulin Ratio 0.5 L 07/12/21 08:44: POC Glucose 85 07/12/21 12:09: POC Glucose 145 H Micro: Microbiology 07/11/21 10:30 Sputum, Expectorated/Coughed Gram Stain - Final 07/05/21 19:15 Blood Culture (Wb) - Anticubital Right Blood Culture - Final No growth in 5 days. 07/05/21 19:00 Blood Culture (Wb) - Anticubital Left Blood Culture - Final No growth in 5 days. 07/05/21 19:10 Nasal Secretion SARS-CoV-2 Antigen (Rapid) - Final SARS-CoV-2 (COVID 19) Physical Exam Const alert and no apparent distress General Appearance: cooperative Nutritional Appearance: obese HEENT normocephalic and head/scalp atraumatic Eyes PERRL, EOMs intact bilaterally and conjunctivae normal Neck supple General: trachea midline Chest inspection of chest normal Resp Auscultation: diminished lung sounds; Negative for rales, rhonchi or wheezes Cardio regular rate and regular rhythm GI normal to inspection, nondistended, normoactive bowel sounds Extremity no clubbing, cyanosis or edema Skin no rashes or lesions noted Neuro CN's II-XII intact bilaterally, moves all extremities and no focal motor deficits Psych cooperative and affect normal Charges/Coding Visit Charges Inpatient E&M: 51808 Subs Hosp L3
[2021-07-12] MEDS: Furosemide 40 MG/4 ML Vial IV (14:29)
[2021-07-12] MEDS: 0.9% Saline Lock 10 ML Syringe IV (14:29)
[2021-07-12] MEDS: Acetaminophen 325 MG Tablet 650 MG PO ×2 (14:35→21:23)
[2021-07-12] MEDS: Insulin Lispro 100 UNIT/ML INSULN.PEN SC ×2 (17:02→21:15)
[2021-07-12 17:20] LABS: Bedside Glucose 199 mg/dL (70-110)
--- NOTE | 2021-07-12 20:35 | PN.HOSP_ITS ---
Subjective Subjective Patient was seen and examined today, he remains on Airvo, patient does not appear to be short of breath at rest. Objective Data Objective Data Vital Signs: Vital Signs Temp Pulse Resp BP Pulse Ox 98.5 F 97 18 123/75 H 95 07/12/21 14:23 07/12/21 14:23 07/12/21 14:23 07/12/21 14:23 07/12/21 14:23 Oxygen Flow Rate (L/min) 60 Oxygen Delivery Method Airvo Weight: 91 kg Body Mass Index (BMI) 32.4 Intake & Output: Intake and Output for Last 24 Hours 07/10/21 07/11/21 07/12/21 23:59 23:59 23:59 Intake Total 2900 / 2900 2350 / 2850 800 / 800 Output Total 1000 / 1000 2300 / 3500 2500 / 2500 Balance 1900 / 1900 50 / -650 -1700 / -1700 Lab / Micro Data Result Diagrams: 07/12/21 06:55 07/12/21 06:55 Labs: Laboratory Results - last 24 hr 07/11/21 21:39: POC Glucose 159 H 07/12/21 06:55: WBC 11.3 H, RBC 4.69, Hgb 14.9, Hct 42.5, MCV 90.6, MCH 31.8, MCHC 35.1, RDW Std Deviation 40.5, RDW Coeff of Mamadou 12.3, Plt Count 381, MPV 10.6, Immature Gran % (Auto) 1.100 H, Neut % (Auto) 87.7 H, Lymph % (Auto) 6.3 L , [place] % (Auto) 4.0, Eos % (Auto) 0.7, Baso % (Auto) 0.2, Absolute Neuts (auto) 9.9 H, Absolute Lymphs (auto) 0.71 L, Nucleated RBC % 0 07/12/21 06:55: Sodium 133 L, Potassium 3.6, Chloride 99, Carbon Dioxide 24.0, Anion Gap 10, BUN 18, Creatinine 0.59 L, Estim Creat Clear Calc 138.47, Est GFR (MDRD) Af Amer 185, Est GFR (MDRD) Non-Af 153, BUN/Creatinine Ratio 30.6 H, Glucose 79, Calcium 8.6, Total Bilirubin 0.70, AST 30, ALT 26, Alkaline Phosphatase 57, Total Protein 7.3, Albumin 2.4 L, Globulin 4.9 H, Albumin/Globulin Ratio 0.5 L 07/12/21 08:44: POC Glucose 85 07/12/21 12:09: POC Glucose 145 H 07/12/21 16:56: POC Glucose 199 H Micro: Microbiology 07/11/21 10:30 Sputum, Expectorated/Coughed Gram Stain - Final 07/05/21 19:15 Blood Culture (Wb) - Anticubital Right Blood Culture - Final No growth in 5 days. 07/05/21 19:00 Blood Culture (Wb) - Anticubital Left Blood Culture - Final No growth in 5 days. 07/05/21 19:10 Nasal Secretion SARS-CoV-2 Antigen (Rapid) - Final SARS-CoV-2 (COVID 19) Physical Exam Const alert, oriented x3, no apparent distress and healthy appearing General Appearance: cooperative, well kempt and well developed Orientation / Consciousness: awake, oriented to person, oriented to place and oriented to time HEENT normocephalic and moist oral mucous membranes Eyes PERRL, EOMs intact bilaterally and conjunctivae normal Neck nuchal rigidity, supple, no JVD and thyroid normal General: trachea midline Resp normal respiratory effort and clear to auscultation bilaterally Auscultation: Negative for rales, rhonchi or wheezes Cardio regular rate, regular rhythm, no murmurs, no rub and no gallops GI normal to inspection, nondistended, normoactive bowel sounds, soft to palpation, non-tender and non-distended Extremity no clubbing, cyanosis or edema Skin no rashes or lesions noted General Skin Exam: no breakdown Neuro oriented x3, CN's II-XII intact bilaterally, no focal motor deficits and no sensory deficits noted Sensorium / Orientation: awake and alert Speech: speech normal Psych thought process normal and affect normal Assessment & Plan Assessment/Plan (1) Respiratory failure with hypoxia: (2) Pneumonia due to COVID-19 virus: PLAN: 1. COVID-19 pneumonia-patient is currently receiving dexamethasone as well as baricitinib, patient finished his course of remdesivir #2 acute hypoxic respiratory failure secondary to #1-patient's pulse ox will be monitored #3 type 2 diabetes-patient's blood sugars will be monitored, patient is on insulin #4 essential hypertension-patient is on oral medication at this time Charges/Coding Visit Charges Inpatient E&M: 12841 Subs Hosp L2
[2021-07-12] MEDS: Atorvastatin Calcium 10 MG Tablet 5 MG PO (21:15)
[2021-07-12 21:55] LABS: Bedside Glucose 186 mg/dL (70-110)
[2021-07-12] MEDS: Menthol/Lanolin/Calamine/Znox 113 GM Tube 1 APPLIC TOPICAL (22:13)
[2021-07-13 03:51] VITALS: BP 140/84; PULSE 95; RESP 20; TEMP 36.8; O2SAT 92
[2021-07-13 08:16] VITALS: BP 121/74; PULSE 98; RESP 18; TEMP 37.3; O2SAT 92
[2021-07-13] MEDS: Losartan Potassium 25 MG Tablet PO (10:26)
[2021-07-13] MEDS: Menthol/Lanolin/Calamine/Znox 113 GM Tube 1 APPLIC TOPICAL ×2 (10:26→22:07)
[2021-07-13] MEDS: Enoxaparin 40 MG/0.4 ML Syringe SC ×2 (10:27→22:07)
[2021-07-13] MEDS: guaiFENesin 1,200 MG Tablet 1200 MG PO ×2 (10:27→22:08)
[2021-07-13] MEDS: Empagliflozin 25 MG Tablet PO (10:27)
[2021-07-13] MEDS: dexAMETHasone 10 MG/ML Vial 6 MG IV (10:27)
[2021-07-13] MEDS: 0.9% Saline Lock 10 ML Syringe IV (10:28)
[2021-07-13] MEDS: Nystatin Powder 15gm Bottle 1 APPLIC TOPICAL ×2 (10:28→22:07)
[2021-07-13] MEDS: Senna/Docusate Sodium 1 Tablet 2 TABLET PO ×2 (10:29→22:07)
[2021-07-13] MEDS: Acetaminophen 325 MG Tablet 650 MG PO (10:34)
[2021-07-13 11:15] LABS: Bedside Glucose 91 mg/dL (70-110)
[2021-07-13] MEDS: Insulin Lispro 100 UNIT/ML INSULN.PEN SC ×2 (12:45→17:34)
[2021-07-13 12:56] LABS: Bedside Glucose 186 mg/dL (70-110)
[2021-07-13 15:02] VITALS: BP 124/71; PULSE 85; RESP 18; TEMP 37.3; O2SAT 92
[2021-07-13] MEDS: CEFUROXIME AXETIL 250 MG TABLET 500 MG PO (17:34)
[2021-07-13 17:51] LABS: Bedside Glucose 183 mg/dL (70-110)
[2021-07-13 19:34] VITALS: BP 119/80; PULSE 87; RESP 18; TEMP 36.6; O2SAT 96
[2021-07-13 19:51] VITALS: PULSE 102; RESP 20; O2SAT 93
--- NOTE | 2021-07-13 20:19 | PCM.PN.HOSP ---
Subjective Subjective Patient was seen and examined today, he remains on Airvo at this time, he had Haemophilus influenza in the sputum, I started him on Ceftin 500 mg twice daily today. Patient does not complain of any shortness of breath at rest. Objective Data Objective Data Vital Signs: Vital Signs Temp Pulse Resp BP Pulse Ox 97.9 F 102 H 20 H 119/80 93 07/13/21 19:34 07/13/21 19:51 07/13/21 19:51 07/13/21 19:34 07/13/21 19:51 Oxygen Flow Rate (L/min) 60 Oxygen Delivery Method Airvo Weight: 91 kg Body Mass Index (BMI) 32.4 Intake & Output: Intake and Output for Last 24 Hours 07/11/21 07/12/21 07/13/21 23:59 23:59 23:59 Intake Total 2350 / 2850 800 / 1400 1100 / 1100 Output Total 2300 / 3500 2500 / 2500 700 / 700 Balance 50 / -650 -1700 / -1100 400 / 400 Lab / Micro Data Result Diagrams: 07/12/21 06:55 07/12/21 06:55 Labs: Laboratory Results - last 24 hr 07/12/21 21:13: POC Glucose 186 H 07/13/21 08:10: POC Glucose 91 07/13/21 12:44: POC Glucose 186 H 07/13/21 17:32: POC Glucose 183 H Micro: Microbiology 07/11/21 10:30 Sputum, Expectorated/Coughed Gram Stain - Final 07/11/21 10:30 Sputum, Expectorated/Coughed Respiratory Culture - Preliminary Haemophilus influenzae 07/05/21 19:15 Blood Culture (Wb) - Anticubital Right Blood Culture - Final No growth in 5 days. 07/05/21 19:00 Blood Culture (Wb) - Anticubital Left Blood Culture - Final No growth in 5 days. 07/05/21 19:10 Nasal Secretion SARS-CoV-2 Antigen (Rapid) - Final SARS-CoV-2 (COVID 19) Physical Exam Const alert, oriented x3 and no apparent distress General Appearance: cooperative, well kempt and well developed Orientation / Consciousness: awake, oriented to person, oriented to place and oriented to time HEENT normocephalic, head/scalp atraumatic and moist oral mucous membranes Head and Scalp: normocephalic Eyes PERRL, EOMs intact bilaterally and conjunctivae normal Neck nuchal rigidity, supple, no JVD, thyroid normal and no carotid bruits General: trachea midline Resp normal respiratory effort, no retractions, no use of accessory muscles and clear to auscultation bilaterally Auscultation: Negative for rales, rhonchi or wheezes Cardio regular rate, regular rhythm, S1 normal heart sound, S2 normal heart sound, no murmurs, no rub and no gallops GI normal to inspection, nondistended, normoactive bowel sounds, soft to palpation, non-tender and non-distended Extremity no clubbing, cyanosis or edema Skin no rashes or lesions noted General Skin Exam: no breakdown Neuro oriented x3, CN's II-XII intact bilaterally, no focal motor deficits and no sensory deficits noted Sensorium / Orientation: awake and alert Speech: speech normal Psych thought process normal and affect normal Assessment & Plan Assessment/Plan (1) Respiratory failure with hypoxia: (2) Pneumonia due to COVID-19 virus: PLAN: 1. COVID-19 pneumonia-patient is currently receiving dexamethasone as well as baricitinib, patient finished his course of remdesivir #2 acute hypoxic respiratory failure secondary to #1-patient's pulse ox will be monitored #3 type 2 diabetes-patient's blood sugars will be monitored, patient is on insulin #4 essential hypertension-patient is on oral medication at this time #5 Haemophilus influenza bronchitis-patient was placed on Ceftin 500 mg twice daily Patient's overall prognosis is extremely guarded at this time Charges/Coding Visit Charges Inpatient E&M: 36044 Subs Hosp L2
[2021-07-13] MEDS: Atorvastatin Calcium 10 MG Tablet 5 MG PO (22:08)
[2021-07-13 22:41] LABS: Bedside Glucose 111 mg/dL (70-110)
[2021-07-14] VITALS (13 sets, daily range): BP systolic 115–133; BP diastolic 78–87; PULSE 79–123; RESP 12–34; TEMP 36.1–37.6; O2SAT 87–98
[2021-07-14] MEDS: Acetaminophen 325 MG Tablet 650 MG PO ×2 (05:17→12:28)
--- NOTE | 2021-07-14 05:52 | NURSING ---
, Gaby, updated on patient status.
[2021-07-14 08:30] LABS: Bedside Glucose 94 mg/dL (70-110)
[2021-07-14 11:16] LABS: Bedside Glucose 98 mg/dL (70-110)
[2021-07-14] MEDS: dexAMETHasone 10 MG/ML Vial 6 MG IV (12:01)
[2021-07-14] MEDS: Empagliflozin 25 MG Tablet PO (12:01)
[2021-07-14] MEDS: Losartan Potassium 25 MG Tablet PO (12:02)
[2021-07-14] MEDS: Enoxaparin 40 MG/0.4 ML Syringe SC ×2 (12:03→16:31)
[2021-07-14] MEDS: guaiFENesin 1,200 MG Tablet 1200 MG PO ×2 (12:04→21:22)
[2021-07-14] MEDS: CEFUROXIME AXETIL 250 MG TABLET 500 MG PO ×2 (12:05→21:22)
[2021-07-14] MEDS: Senna/Docusate Sodium 1 Tablet 2 TABLET PO ×2 (12:08→21:22)
[2021-07-14 16:06] LABS: Bedside Glucose 227 mg/dL (70-110)
[2021-07-14] MEDS: 0.9% Saline Lock 10 ML Syringe IV (16:30)
[2021-07-14] MEDS: Furosemide 40 MG/4 ML Vial IV (16:30)
[2021-07-14] MEDS: Insulin Lispro 100 UNIT/ML INSULN.PEN SC (16:54)
--- NOTE | 2021-07-14 19:39 | PCM.PN.HOSP ---
Subjective Subjective Patient was seen and examined today, he is currently on BiPAP with an FiO2 of 100%, I talked with him about his CODE STATUS, he reiterated that his CODE STATUS was a DNR CC arrest without intubation. I called the patient's to update her on the patient's condition, she came in with her daughter who also has COVID-19, is aware that the patient does not want to be placed on a ventilator or be resuscitated should he arrest. I have elected to place the patient on full dose Lovenox for anticoagulation and give the patient a dose of IV Lasix to see if this makes any difference in his respiratory status. Patient's overall prognosis is poor at this point. Objective Data Objective Data Vital Signs: Vital Signs Temp Pulse Resp BP Pulse Ox 97.7 F L 105 H 23 H 124/87 H 93 07/14/21 18:41 07/14/21 18:41 07/14/21 19:32 07/14/21 18:41 07/14/21 18:41 Oxygen Flow Rate (L/min) 60 Oxygen Delivery Method Bi-pap Weight: 88.5 kg Body Mass Index (BMI) 32.4 Intake & Output: Intake and Output for Last 24 Hours 07/12/21 07/13/21 07/14/21 23:59 23:59 23:59 Intake Total 800 / 1400 1100 / 1400 1450 / 1450 Output Total 2500 / 2500 700 / 1150 2425 / 2425 Balance -1700 / -1100 400 / 250 -975 / -975 Lab / Micro Data Result Diagrams: 07/15/21 07:50 07/15/21 07:50 Labs: Laboratory Results - last 24 hr 07/13/21 22:06: POC Glucose 111 H 07/14/21 07:49: POC Glucose 94 07/14/21 11:10: POC Glucose 98 07/14/21 15:57: POC Glucose 227 H Micro: Microbiology 07/11/21 10:30 Sputum, Expectorated/Coughed Gram Stain - Final 07/11/21 10:30 Sputum, Expectorated/Coughed Respiratory Culture - Final Haemophilus influenzae Beta strep non A 07/05/21 19:15 Blood Culture (Wb) - Anticubital Right Blood Culture - Final No growth in 5 days. 07/05/21 19:00 Blood Culture (Wb) - Anticubital Left Blood Culture - Final No growth in 5 days. 07/05/21 19:10 Nasal Secretion SARS-CoV-2 Antigen (Rapid) - Final SARS-CoV-2 (COVID 19) Physical Exam Const alert and oriented x3 General Appearance: cooperative, well kempt and well developed Orientation / Consciousness: awake, oriented to person, oriented to place and oriented to time HEENT normocephalic, head/scalp atraumatic and moist oral mucous membranes Head and Scalp: normocephalic Neck nuchal rigidity, supple, no JVD and thyroid normal General: trachea midline Resp normal respiratory effort, no retractions, no use of accessory muscles and clear to auscultation bilaterally Auscultation: Negative for rales, rhonchi or wheezes Cardio regular rate, regular rhythm, S1 normal heart sound, S2 normal heart sound, no murmurs, no rub and no gallops GI normal to inspection, nondistended, normoactive bowel sounds, soft to palpation, non-tender and non-distended Extremity no clubbing, cyanosis or edema Skin no rashes or lesions noted General Skin Exam: no breakdown Neuro oriented x3, CN's II-XII intact bilaterally, no focal motor deficits and no sensory deficits noted Sensorium / Orientation: awake and alert Speech: speech normal Psych thought process normal and affect normal Assessment & Plan Assessment/Plan (1) Pneumonia due to COVID-19 virus: (2) Respiratory failure with hypoxia: PLAN: 1. COVID-19 pneumonia-patient is currently receiving dexamethasone as well as baricitinib, patient finished his course of remdesivir #2 acute hypoxic respiratory failure secondary to #1-patient's pulse ox will be monitored, patient is currently on BiPAP at this time #3 type 2 diabetes-patient's blood sugars will be monitored, patient is on insulin #4 essential hypertension-patient is on oral medication at this time #5 Haemophilus influenza bronchitis-patient remains on Ceftin 500 mg twice daily Patient's overall prognosis is extremely guarded at this time, patient remains a DNR CC arrest with no intubation. Charges/Coding Visit Charges Inpatient E&M: 22048 Subs Hosp L2
[2021-07-14] MEDS: Menthol/Lanolin/Calamine/Znox 113 GM Tube 1 APPLIC TOPICAL (21:20)
[2021-07-14] MEDS: Enoxaparin 100 MG/ML Syringe 90 MG SC (21:21)
[2021-07-14] MEDS: Atorvastatin Calcium 10 MG Tablet 5 MG PO (21:22)
[2021-07-14 21:46] LABS: Bedside Glucose 147 mg/dL (70-110)
[2021-07-14] MEDS: Sodium Chloride 0.65% 1 SPRAY SPRAY.BTL 2 SPRAY NASAL (23:56)
[2021-07-15] VITALS (19 sets, daily range): BP systolic 97–144; BP diastolic 65–92; PULSE 75–130; RESP 12–35; TEMP 36.6–37.3; O2SAT 28–93
[2021-07-15] MEDS: Sodium Chloride 0.65% 1 SPRAY SPRAY.BTL 2 SPRAY NASAL (03:43)
--- NOTE | 2021-07-15 07:25 | PN.CC_ITS ---
Assessment & Plan Assessment/Plan (1) Respiratory failure with hypoxia: (2) Pneumonia due to COVID-19 virus: (3) Diabetes: QUALIFIERS: Diabetes mellitus complication status: with hyper glycemia Diabetes mellitus rodent exterminator insulin use: without rodent exterminator use Diabetes mellitus type: type 2 Qualified Code(s): E11.65 - Type 2 diabetes mellitus with hyperglycemia PLAN: RECOMMENDATIONS: 1. Continue Decadron and baricitinib. The patient has completed remdesivir. 2. Wean FiO2 to maintain oxygen saturations at or above 90%. 3. Diuretics, as needed, to maintain euvolemic state. 4. Continue antimicrobials. 5. Lovenox to be dose adjusted, as the prior dose entered was not therapeutic for the patient's weight. 6. Obtain repeat labs and chest x-ray. IMPRESSIONS: 1. Acute hypoxic respiratory failure secondary to COVID-19 with secondary bacterial pneumonia The patient was initially admitted to the hospital on July 05 with shortness of breath and hypoxemia. The patient has had progressive worsening in his respiratory status, but remains DNR CCA without intubation. He is currently on maximum support via BiPAP. The patient has already completed a treatment course of remdesivir and will remain on Decadron and baricitinib. Continue attempts at diuresis as tolerated by hemodynamics and renal function. Continue therapeutic Lovenox. The patient is at high risk for continued clinical decompensation and the development of a pneumomediastinum, given his continued dependence on BiPAP. If the patient remains steadfast in his decision to remain DNR, may wish to begin the conversation of potential hospice referral. 2. Nonvaccinated status/obesity/hypertension/diabetes/hyperlipidemia Complicates care, management, recovery and prognosis. Continue home medications as indicated. This note was generated with [employer] dictation software. It may contain incorrect words, spelling, and punctuation that were not noted in checking the note before signing. Subjective Subjective The patient was seen and examined at the bedside this morning. Events from the last 24 hours have been reviewed. The patient is currently afebrile, hemodynamically stable and maintaining appropriate oxygen saturations on BiPAP with an FiO2 requirement of 100%. The patient is currently documented to be overall net -4.5 L for the hospitalization. He remains on Decadron, baricitinib and therapeutic Lovenox. Objective Data Objective Data The patient's most recent lab work, culture data and imaging studies have all been personally reviewed. Rapid coronavirus antigen testing was positive on July 05. Sputum culture was positive for Haemophilus influenza. Vital Signs: Vital Signs Temp Pulse Resp BP Pulse Ox 97.8 F 122 H 28 H 144/92 H 89 07/15/21 03:40 07/15/21 07:09 07/15/21 07:09 07/15/21 03:40 07/15/21 07:09 Oxygen Flow Rate (L/min) 60 Oxygen Delivery Method Bi-pap Weight: 129.1 kg Body Mass Index (BMI) 32.4 Intake & Output: Intake and Output for Last 24 Hours 07/13/21 07/14/21 07/15/21 23:59 23:59 23:59 Intake Total 1100 / 1400 1450 / 1690 240 / 240 Output Total 700 / 1150 2425 / 2425 1200 / 1200 Balance 400 / 250 -975 / -735 -960 / -960 Lab / Micro Data Attestation: I reviewed the patient's lab results. Result Diagrams: 07/15/21 07:50 07/15/21 07:50 Labs: Laboratory Results - last 24 hr 07/14/21 07:49: POC Glucose 94 07/14/21 11:10: POC Glucose 98 07/14/21 15:57: POC Glucose 227 H 07/14/21 21:11: POC Glucose 147 H Micro: Microbiology 07/11/21 10:30 Sputum, Expectorated/Coughed Gram Stain - Final 07/11/21 10:30 Sputum, Expectorated/Coughed Respiratory Culture - Final Haemophilus influenzae Beta strep non A 07/05/21 19:15 Blood Culture (Wb) - Anticubital Right Blood Culture - Final No growth in 5 days. 07/05/21 19:00 Blood Culture (Wb) - Anticubital Left Blood Culture - Final No growth in 5 days. 07/05/21 19:10 Nasal Secretion SARS-CoV-2 Antigen (Rapid) - Final SARS-CoV-2 (COVID 19) Physical Exam Const alert General Appearance: cooperative and on BiPAP Nutritional Appearance: obese HEENT normocephalic and head/scalp atraumatic Eyes PERRL, EOMs intact bilaterally and conjunctivae normal Neck supple General: trachea midline Chest Chest Narrative: + Crepitus Resp Effort and Inspection: tachypneic Auscultation: diminished lung sounds; Negative for rales, rhonchi or wheezes Cardio S1 normal heart sound and S2 normal heart sound Rate: tachycardic GI normal to inspection, nondistended, normoactive bowel sounds Extremity no clubbing, cyanosis or edema Skin no rashes or lesions noted Neuro CN's II-XII intact bilaterally, moves all extremities and no focal motor deficits Psych cooperative and affect normal Charges/Coding Visit Charges Inpatient E&M: 99116 Subs Hosp L3
--- NOTE | 2021-07-15 07:26 | RAD_ITS ---
STUDY: X-RAY CHEST REASON FOR EXAM: Male, 56 years old. Respiratory Failure TECHNIQUE: AP COMPARISON: 07/05/2021 FINDINGS: Air within the chest wall has developed since the prior study. Multifocal infiltrates with features commonly reported with COVID pneumonia. No definitive pneumothorax. Normal size heart. Mild pneumomediastinum is new. Normal visualized pulmonary arteries. Normal visualized aortic arch and descending thoracic aorta. Normal visualized thoracic spine. Normal visualized ribs, clavicles, and shoulders. There is no demonstrated abnormality of the visualized soft tissue structures of the upper abdomen. RAD/Chest 1 View (Portable) IMPRESSION: 1. New pneumomediastinum and chest wall subcutaneous emphysema. 2. Multifocal infiltrates with features commonly reported with COVID pneumonia. Electronically Signed: Lucio Augustine MD ([place]) at 9:07 EST , Service support ,
[2021-07-15 08:04] LABS: Absolute Lymphocyte Count 0.46 X10^3/uL (0.83-4.51); Basophil# 0.02 X10^3/uL; Basophil% 0.2 % (0-1); Eosinophil# 0.14 X10^3/uL; Eosinophils% 1.1 % (0-5); Hemoglobin 15.7 g/dL (13.0-16.5); Lymphocyte # 0.46 X10^3/ul (0.83-4.51); Lymphocyte % 3.5 % (19-41); Mean Corp Hgb Conc 33.4 g/dL (32-36); Mean Corpuscular Hgb 30.9 pg (27.0-32.0); Mean Corpuscular Volume 92.5 fL (80-94); Monocyte# 0.53 X10^3/uL; NRBC Flagged by Analyzer 0 % (0-5); Neutrophil # 11.95 X10^3/uL (2.7-7.7); Neutrophil % 90.3 % (47-70); POSITIVE DIFFERENTIAL YES; Platelet Count 680 K/mm3 (150-450); RBC Distribution Width CV 12.7 % (11.6-14.6); RBC Distribution Width SD 43.5 fl (35.1-43.9); Red Blood Count 5.08 M/mm3 (4.6-6.2); White Blood Count 13.2 K/mm3 (4.4-11.0)
[2021-07-15 08:08] LABS: Differential Indicated SCAN CRITERIA MET
[2021-07-15 08:18] LABS: Anion Gap 18 (5-15); BUN 26 mg/dL (7-18); Calcium,Total 9.1 mg/dL (8.5-10.1); Chloride 96 mmol/L (98-107); Creatinine, Serum 0.74 mg/dL (0.70-1.30); EST Glomerular Filtration Rate 117 mL/min (>60); Est Glom Filt Rate - Afr Amer 141 mL/min (>60); Estimated Creatinine Clearance 110.41 ml/min; Glucose 109 mg/dL (74-106); Potassium 4.1 mmol/L (3.5-5.1); Sodium Level 133 mmol/L (136-145)
[2021-07-15] MEDS: CEFUROXIME AXETIL 250 MG TABLET 500 MG PO ×2 (08:43→23:44)
[2021-07-15] MEDS: guaiFENesin 1,200 MG Tablet 1200 MG PO ×2 (08:46→23:44)
[2021-07-15] MEDS: Senna/Docusate Sodium 1 Tablet 2 TABLET PO ×2 (08:46→23:44)
[2021-07-15] MEDS: dexAMETHasone 10 MG/ML Vial 6 MG IV (08:47)
[2021-07-15] MEDS: Empagliflozin 25 MG Tablet PO (08:47)
[2021-07-15] MEDS: 0.9% Saline Lock 10 ML Syringe IV ×4 (08:47→19:25)
[2021-07-15] MEDS: Losartan Potassium 25 MG Tablet PO (08:47)
--- NOTE | 2021-07-15 08:53 | NURSING ---
attempted to place on AIRVO max so pt could eat some breakfast. in less than 5 minutes pt desats into 60's-70's. BIPAP off briefly to give po meds/mouth care and then placed back on.
[2021-07-15 09:07] LABS: Platelet Estimate MKD INC (ADEQ); Red Cell Morphology NORM C+C NORMAL (NORM C&C)
--- NOTE | 2021-07-15 09:13 | NURSING ---
pt refuses to prone but is agreeable to side lying position.
[2021-07-15] MEDS: Furosemide 40 MG/4 ML Vial IV (11:33)
[2021-07-15] MEDS: Enoxaparin 120 MG/0.8 ML Syringe SC ×2 (11:34→23:45)
[2021-07-15] MEDS: Insulin Lispro 100 UNIT/ML INSULN.PEN SC (11:34)
[2021-07-15] MEDS: Morphine 4 MG/ML Syringe IV ×4 (11:34→19:23)
[2021-07-15 12:15] LABS: Bedside Glucose 116 mg/dL (70-110)
[2021-07-15 12:15] LABS: Bedside Glucose 180 mg/dL (70-110)
[2021-07-15 17:50] LABS: Bedside Glucose 158 mg/dL (70-110)
--- NOTE | 2021-07-15 19:25 | PN.HOSP_ITS ---
Subjective Subjective Patient was seen and examined today, he remains on BiPAP, I talked with his who was in the room at the time of my examination, she requested medications to be given to him for any respiratory discomfort, I agreed that this was appropriate. Patient's pulse ox currently is 92% on 100% BiPAP. Objective Data Objective Data Vital Signs: Vital Signs Temp Pulse Resp BP Pulse Ox 98 F 90 24 H 104/65 92 07/15/21 17:30 07/15/21 17:30 07/15/21 17:30 07/15/21 17:30 07/15/21 17:30 Oxygen Flow Rate (L/min) 60 Oxygen Delivery Method Bi-pap Weight: 129.1 kg Body Mass Index (BMI) 32.4 Intake & Output: Intake and Output for Last 24 Hours 07/13/21 07/14/21 07/15/21 23:59 23:59 23:59 Intake Total 1100 / 1400 1450 / 1690 240 / 240 Output Total 700 / 1150 2425 / 2425 1850 / 1850 Balance 400 / 250 -975 / -735 -1610 / -1610 Lab / Micro Data Result Diagrams: 07/15/21 07:50 07/15/21 07:50 Labs: Laboratory Results - last 24 hr 07/14/21 21:11: POC Glucose 147 H 07/15/21 07:50: WBC 13.2 H, RBC 5.08, Hgb 15.7, Hct 47.0, MCV 92.5, MCH 30.9, MCHC 33.4, RDW Std Deviation 43.5, RDW Coeff of Mamadou 12.7, Plt Count 680 H, MPV 10.0, Immature Gran % (Auto) 0.900, Neut % (Auto) 90.3 H, Lymph % (Auto) 3.5 L, [place] % (Auto) 4.0, Eos % (Auto) 1.1, Baso % (Auto) 0.2, Absolute Neuts (auto) 12.0 H, Absolute Lymphs (auto) 0.46 L, Nucleated RBC % 0, Platelet Estimate MKD INC, RBC Morphology NORM C+C 07/15/21 07:50: Sodium 133 L, Potassium 4.1, Chloride 96 L, Carbon Dioxide 19.0 L, Anion Gap 18 H, BUN 26 H, Creatinine 0.74, Estim Creat Clear Calc 110.41, Est GFR (MDRD) Af Amer 141, Est GFR (MDRD) Non-Af 117, BUN/Creatinine Ratio 35.0 H, Glucose 109 H, Calcium 9.1 07/15/21 08:34: POC Glucose 116 H 07/15/21 11:29: POC Glucose 180 H 07/15/21 16:49: POC Glucose 158 H Micro: Microbiology 07/11/21 10:30 Sputum, Expectorated/Coughed Gram Stain - Final 07/11/21 10:30 Sputum, Expectorated/Coughed Respiratory Culture - Final Haemophilus influenzae Beta strep non A 07/05/21 19:15 Blood Culture (Wb) - Anticubital Right Blood Culture - Final No growth in 5 days. 07/05/21 19:00 Blood Culture (Wb) - Anticubital Left Blood Culture - Final No growth in 5 days. 07/05/21 19:10 Nasal Secretion SARS-CoV-2 Antigen (Rapid) - Final SARS-CoV-2 (COVID 19) Radiography Diagnostic Testing: Radiology Impression Chest X-Ray 07/15/21 07:26 IMPRESSION: 1. New pneumomediastinum and chest wall subcutaneous emphysema. 2. Multifocal infiltrates with features commonly reported with COVID pneumonia. Electronically Signed: Lucio Augustine MD ([facility]) at 9:07 EST , Service support , Physical Exam Const alert and oriented x3 General Appearance: cooperative, well kempt and well developed Orientation / Consciousness: awake, oriented to person, oriented to place and oriented to time HEENT normocephalic, head/scalp atraumatic and moist oral mucous membranes Head and Scalp: normocephalic Eyes conjunctivae normal Neck nuchal rigidity, supple, no JVD and thyroid normal General: trachea midline Resp no retractions, no use of accessory muscles and clear to auscultation bilaterally Auscultation: Negative for rales, rhonchi or wheezes Cardio regular rate, regular rhythm, S1 normal heart sound, S2 normal heart sound, no murmurs, no rub and no gallops GI normal to inspection, nondistended, normoactive bowel sounds, soft to palpation, non-tender and non-distended Extremity no clubbing, cyanosis or edema Skin no rashes or lesions noted General Skin Exam: no breakdown Neuro oriented x3, CN's II-XII intact bilaterally, no focal motor deficits and no sensory deficits noted Sensorium / Orientation: awake and alert Speech: speech normal Psych thought process normal and affect normal Assessment & Plan Assessment/Plan (1) Pneumonia due to COVID-19 virus: (2) Respiratory failure with hypoxia: PLAN: 1. COVID-19 pneumonia-patient is currently receiving dexamethasone as well as baricitinib, patient finished his course of remdesivir, I have elected to give the patient another dose of IV Lasix today. #2 acute hypoxic respiratory failure secondary to #1-patient's pulse ox will be monitored, patient is currently on BiPAP at this time #3 type 2 diabetes-patient's blood sugars will be monitored, patient is on insulin #4 essential hypertension-patient is on oral medication at this time #5 Haemophilus influenza bronchitis-patient remains on Ceftin 500 mg twice daily Patient's overall prognosis is extremely guarded at this time, patient remains a DNR CC arrest with no intubation. Charges/Coding Visit Charges Inpatient E&M: 58078 Subs Hosp L2
[2021-07-15] MEDS: Atorvastatin Calcium 10 MG Tablet 5 MG PO (23:43)
[2021-07-16] VITALS (12 sets, daily range): BP systolic 116–137; BP diastolic 73–92; PULSE 83–120; RESP 12–30; TEMP 36.2–36.6; O2SAT 91–96
[2021-07-16 00:06] LABS: Bedside Glucose 146 mg/dL (70-110)
--- NOTE | 2021-07-16 06:58 | PN.CC_ITS ---
Assessment & Plan Assessment/Plan (1) Respiratory failure with hypoxia: (2) Pneumonia due to COVID-19 virus: (3) Diabetes: QUALIFIERS: Diabetes mellitus complication status: with hyper glycemia Diabetes mellitus parts counterman insulin use: without parts counterman use Diabetes mellitus type: type 2 Qualified Code(s): E11.65 - Type 2 diabetes mellitus with hyperglycemia PLAN: RECOMMENDATIONS: 1. Continue Decadron and baricitinib. The patient has completed remdesivir. 2. Wean FiO2 to maintain oxygen saturations at or above 90%. 3. Diuretics, as needed, to maintain euvolemic state. 4. Continue antimicrobials. 5. Continue therapeutic Lovenox. IMPRESSIONS: 1. Acute hypoxic respiratory failure secondary to COVID-19 with secondary bacterial pneumonia The patient was initially admitted to the hospital on July 05 with shortness of breath and hypoxemia. The patient has had progressive worsening in his respiratory status, but remains DNR CCA without intubation. He is currently on maximum support via AVAPS. The patient has already completed a treatment course of remdesivir and will remain on Decadron and baricitinib. Continue attempts at diuresis as tolerated by hemodynamics and renal function. Continue therapeutic Lovenox. The patient is at high risk for continued clinical decompensation, especially in light of his pneumomediastinum and continued dependence on noninvasive positive pressure ventilatory support. 2. Nonvaccinated status/obesity/hypertension/diabetes/hyperlipidemia Complicates care, management, recovery and prognosis. Continue home medications as indicated. This note was generated with [employer] dictation software. It may contain incorrect words, spelling, and punctuation that were not noted in checking the note before signing. Subjective Subjective The patient was seen and examined at the bedside this morning. Events from the last 24 hours have been reviewed. The patient is currently afebrile, hemodynamically stable and maintaining appropriate oxygen saturations on AVAPS with an FiO2 requirement of 90%. The patient is currently documented to be o verall net -5.1 L for the hospitalization. He remains on Decadron, baricitinib and therapeutic Lovenox. Objective Data Objective Data The patient's most recent lab work, culture data and imaging studies have all been personally reviewed. Rapid coronavirus antigen testing was positive on July 05. Sputum culture was positive for Haemophilus influenza. Vital Signs: Vital Signs Temp Pulse Resp BP Pulse Ox 97.2 F L 83 26 H 118/73 91 07/16/21 03:04 07/16/21 03:49 07/16/21 03:49 07/16/21 03:04 07/16/21 03:49 Oxygen Flow Rate (L/min) 60 Oxygen Delivery Method Bi-pap Weight: 86.3 kg Body Mass Index (BMI) 32.4 Intake & Output: Intake and Output for Last 24 Hours 07/14/21 07/15/21 07/16/21 23:59 23:59 23:59 Intake Total 1450 / 1690 240 / 240 Output Total 2425 / 2425 1850 / 1850 Balance -975 / -735 -1610 / -1610 Lab / Micro Data Attestation: I reviewed the patient's lab results. Result Diagrams: 07/15/21 07:50 07/15/21 07:50 Labs: Laboratory Results - last 24 hr 07/15/21 07:50: WBC 13.2 H, RBC 5.08, Hgb 15.7, Hct 47.0, MCV 92.5, MCH 30.9, MCHC 33.4, RDW Std Deviation 43.5, RDW Coeff of Mamadou 12.7, Plt Count 680 H, MPV 10.0, Immature Gran % (Auto) 0.900, Neut % (Auto) 90.3 H, Lymph % (Auto) 3.5 L, [place] % (Auto) 4.0, Eos % (Auto) 1.1, Baso % (Auto) 0.2, Absolute Neuts (auto) 12.0 H, Absolute Lymphs (auto) 0.46 L, Nucleated RBC % 0, Platelet Estimate MKD INC, RBC Morphology NORM C+C 07/15/21 07:50: Sodium 133 L, Potassium 4.1, Chloride 96 L, Carbon Dioxide 19.0 L, Anion Gap 18 H, BUN 26 H, Creatinine 0.74, Estim Creat Clear Calc 110.41, Est GFR (MDRD) Af Amer 141, Est GFR (MDRD) Non-Af 117, BUN/Creatinine Ratio 35.0 H, Glucose 109 H, Calcium 9.1 07/15/21 08:34: POC Glucose 116 H 07/15/21 11:29: POC Glucose 180 H 07/15/21 16:49: POC Glucose 158 H 07/15/21 23:51: POC Glucose 146 H Micro: Microbiology 07/11/21 10:30 Sputum, Expectorated/Coughed Gram Stain - Final 07/11/21 10:30 Sputum, Expectorated/Coughed Respiratory Culture - Final Haemophilus influenzae Beta strep non A 07/05/21 19:15 Blood Culture (Wb) - Anticubital Right Blood Culture - Final No growth in 5 days. 07/05/21 19:00 Blood Culture (Wb) - Anticubital Left Blood Culture - Final No growth in 5 days. 07/05/21 19:10 Nasal Secretion SARS-CoV-2 Antigen (Rapid) - Final SARS-CoV-2 (COVID 19) Radiography Diagnostic Testing: Radiology Impression Chest X-Ray 07/15/21 07:26 IMPRESSION: 1. New pneumomediastinum and chest wall subcutaneous emphysema. 2. Multifocal infiltrates with features commonly reported with COVID pneumonia. Electronically Signed: Lucio Augustine MD ([place]) at 9:07 EST , Service support , Physical Exam Const alert General Appearance: cooperative and on BiPAP Nutritional Appearance: obese HEENT normocephalic and head/scalp atraumatic Eyes PERRL, EOMs intact bilaterally and conjunctivae normal Neck supple General: trachea midline Chest Chest Narrative: + Crepitus Resp Effort and Inspection: tachypneic Auscultation: diminished lung sounds; Negative for rales, rhonchi or wheezes Cardio regular rate, regular rhythm, S1 normal heart sound and S2 normal heart sound GI normal to inspection, nondistended, normoactive bowel sounds Extremity no clubbing, cyanosis or edema Skin no rashes or lesions noted Neuro CN's II-XII intact bilaterally, moves all extremities and no focal motor de ficits Psych cooperative and affect normal Charges/Coding Visit Charges Inpatient E&M: 00297 Subs Hosp L3
[2021-07-16] MEDS: Furosemide 40 MG/4 ML Vial IV (08:18)
[2021-07-16] MEDS: Menthol/Lanolin/Calamine/Znox 113 GM Tube 1 APPLIC TOPICAL ×2 (08:18→22:19)
[2021-07-16] MEDS: CEFUROXIME AXETIL 250 MG TABLET 500 MG PO ×2 (08:19→21:54)
[2021-07-16] MEDS: Nystatin Powder 15gm Bottle 1 APPLIC TOPICAL ×2 (08:20→22:19)
[2021-07-16] MEDS: Senna/Docusate Sodium 1 Tablet 2 TABLET PO (08:20)
[2021-07-16] MEDS: guaiFENesin 1,200 MG Tablet 1200 MG PO (08:20)
[2021-07-16] MEDS: Losartan Potassium 25 MG Tablet PO (08:20)
[2021-07-16] MEDS: Enoxaparin 120 MG/0.8 ML Syringe SC ×2 (08:21→21:54)
[2021-07-16] MEDS: Empagliflozin 25 MG Tablet PO (08:21)
[2021-07-16] MEDS: dexAMETHasone 10 MG/ML Vial 6 MG IV (08:23)
[2021-07-16 08:46] LABS: Bedside Glucose 112 mg/dL (70-110)
[2021-07-16] MEDS: Morphine 4 MG/ML Syringe IV ×2 (09:45→13:02)
--- NOTE | 2021-07-16 15:44 | PCM.PN.HOSP ---
Subjective Subjective Patient was seen and examined today, he is still on BiPAP, I talked with his who was present in his room today. Patient does not appear to be in respiratory distress. Objective Data Objective Data Vital Signs: Vital Signs Temp Pulse Resp BP Pulse Ox 97.2 F L 103 H 28 H 137/86 H 91 07/16/21 12:54 07/16/21 13:52 07/16/21 13:52 07/16/21 12:54 07/16/21 13:52 Oxygen Flow Rate (L/min) 60 Oxygen Delivery Method Bi-pap Weight: 86.3 kg Body Mass Index (BMI) 32.4 Intake & Output: Intake and Output for Last 24 Hours 07/14/21 07/15/21 07/16/21 23:59 23:59 23:59 Intake Total 1450 / 1690 240 / 240 280 / 280 Output Total 2425 / 2425 1850 / 1850 Balance -975 / -735 -1610 / -1610 280 / 280 Lab / Micro Data Result Diagrams: 07/15/21 07:50 07/15/21 07:50 Labs: Laboratory Results - last 24 hr 07/15/21 16:49: POC Glucose 158 H 07/15/21 23:51: POC Glucose 146 H 07/16/21 08:16: POC Glucose 112 H Micro: Microbiology 07/11/21 10:30 Sputum, Expectorated/Coughed Gram Stain - Final 07/11/21 10:30 Sputum, Expectorated/Coughed Respiratory Culture - Final Haemophilus influenzae Beta strep non A 07/05/21 19:15 Blood Culture (Wb) - Anticubital Right Blood Culture - Final No growth in 5 days. 07/05/21 19:00 Blood Culture (Wb) - Anticubital Left Blood Culture - Final No growth in 5 days. 07/05/21 19:10 Nasal Secretion SARS-CoV-2 Antigen (Rapid) - Final SARS-CoV-2 (COVID 19) Physical Exam Const alert, oriented x3 and no apparent distress General Appearance: cooperative, well kempt and well developed Orientation / Consciousness: awake, oriented to person, oriented to place and oriented to time HEENT normocephalic Eyes PERRL, EOMs intact bilaterally and conjunctivae normal Neck nuchal rigidity, supple, no JVD and thyroid normal General: trachea midline Resp normal respiratory effort, no retractions, no use of accessory muscles and clear to auscultation bilaterally Auscultation: Negative for rales, rhonchi or wheezes Cardio regular rate, regular rhythm, S1 normal heart sound, S2 normal heart sound, no murmurs, no rub and no gallops GI normal to inspection, nondistended, normoactive bowel sounds, soft to palpation, non-tender and non-distended Extremity no clubbing, cyanosis or edema Skin no rashes or lesions noted General Skin Exam: no breakdown Neuro oriented x3, CN's II-XII intact bilaterally, no focal motor deficits and no sensory deficits noted Sensorium / Orientation: awake and alert Speech: speech normal Psych thought process normal and affect normal Assessment & Plan Assessment/Plan (1) Respiratory failure with hypoxia: (2) Pneumonia due to COVID-19 virus: PLAN: 1. COVID-19 pneumonia-patient is currently receiving baricitinib, patient's dexamethasone is finished, patient finished his course of remdesivir, I have elected to give the patient another dose of IV Lasix today. 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 Charges/Coding Visit Charges Inpatient E&M: 57510 Subs Hosp L2
[2021-07-16] MEDS: Glycerin/Hypromellose/PEG400 15 ml Bottle 2 DRP EACH EYE (16:14)
[2021-07-16 16:30] LABS: Bedside Glucose 184 mg/dL (70-110)
[2021-07-16 16:30] LABS: Bedside Glucose 195 mg/dL (70-110)
[2021-07-16] MEDS: Insulin Lispro 100 UNIT/ML INSULN.PEN SC ×2 (16:57→22:18)
[2021-07-16 22:31] LABS: Bedside Glucose 195 mg/dL (70-110)
[2021-07-17] VITALS (7 sets, daily range): BP systolic 107–125; BP diastolic 76–87; PULSE 89–115; RESP 12–29; TEMP 36.1–36.4; O2SAT 90–97
[2021-07-17] MEDS: Ipratropium/Albuterol Sulfate 3 ML AMPUL.NEB INHALATION ×2 (07:15→12:04)
--- NOTE | 2021-07-17 07:46 | CPS ---
Pt coughing up very very thick secretions
[2021-07-17] MEDS: Insulin Lispro 100 UNIT/ML INSULN.PEN SC (08:08)
[2021-07-17] MEDS: Enoxaparin 120 MG/0.8 ML Syringe SC (08:18)
[2021-07-17] MEDS: Losartan Potassium 25 MG Tablet PO (08:19)
[2021-07-17] MEDS: Nystatin Powder 15gm Bottle 1 APPLIC TOPICAL (08:19)
[2021-07-17] MEDS: CEFUROXIME AXETIL 250 MG TABLET 500 MG PO (08:19)
[2021-07-17] MEDS: Menthol/Lanolin/Calamine/Znox 113 GM Tube 1 APPLIC TOPICAL (08:21)
[2021-07-17] MEDS: Empagliflozin 25 MG Tablet PO (08:21)
[2021-07-17 08:40] LABS: Bedside Glucose 229 mg/dL (70-110)
[2021-07-17 13:06] LABS: Bedside Glucose 206 mg/dL (70-110)
[2021-07-17] MEDS: morphine 10 MG/ML Syringe 15 MG IV (13:32)
[2021-07-17] MEDS: LORazepam 2 MG/ML Syringe 3 MG IV (13:34)
[2021-07-17] MEDS: 0.9% Saline Lock 10 ML Syringe IV (13:35)
--- NOTE | 2021-07-17 19:09 | NURSING ---
time of 1857- Dr Gallegos texted and supportive given to - she asked to remain in room with pt- making calls to family
--- NOTE | 2021-07-17 19:31 | PCM.DEATH ---
Preliminary Cause of Preliminary Cause of Preliminary Cause of : #1 asystole secondary to hypoxia from COVID-19 pneumonia #2 COVID-19 pneumonia #3 acute hypoxic respiratory failure secondary to COVID-19 pneumonia #4 type 2 diabetes #5 essential hypertension #6 Haemophilus influenza bronchitis Time of : 1857 on 07/17/2021 Date of Admission: 07/05/21 Principle Diagnosis Problem List: Active and Suspected Problems (Updated 07/05/21 @ 22:54 by rBent Obregon MD) Respiratory failure with hypoxia (Acute) Pneumonia due to COVID-19 virus (Acute) Respiratory failure (Acute) Hospital Course This 56-year-old white male was admitted to [facility] after going to the emergency room at [facility] after going at the direction of an urgent care facility which he was being seen with a chief complaint of shortness of breath-his had performed a outpatient Covid test on him on 07/03/2021 which was positive, patient was unvaccinated from COVID-19, work-up in the emergency room noted bilateral infiltrates on his chest x-ray and he had a positive test for COVID-19. Patient required supplemental oxygen due to hypoxia. Patient was admitted to [facility] 3, he was seen by pulmonary medicine as well as infectious diseases and was treated with appropriate medications for COVID-19. Despite these medications, patient's respiratory status worsened and he was finally placed on BiPAP with high flow oxygen. Conversations were carried out with the patient and his , patient was a DNR CC arrest without intubation, he decided that he would consent to what was basically a terminal wean of his oxygen after being medicated. On 07/17/2021, patient was was medicated for comfort with IV Ativan and IV morphine, his BiPAP was removed and he was placed on nasal cannula oxygen, there was an immediate desaturation of the patient's oxygen level, this lasted for a few hours, I then approached the patient's about taking the patient off of oxygen altogether since it was futile giving the patient oxygen in this context, she agreed and the patient was placed on room air. Approximately 30 minutes to an hour later, the patient passed peacefully-there were no respirations noted and the patient had no blood pressure. Time of was 1857 on 07/17/2021. Visit Charges Inpatient E&M: 07164 [facility]
== END 2021-07-17 20:05 | DRG 177 ==
LOC: ED 19:48 → MS3 22:43
PROVIDERS: Internal Medicine; Internal Medicine Critical Care Medicine; Admitting Provider Hospitalist; Emergency Provider Emergency Medicine; Visit Provider Internal Medicine
DX: U07.1 COVID-19 (principal); J12.82 Pneumonia due to coronavirus disease 2019; J96.01 Acute respiratory failure with hypoxia; J10.1 Influenza due to other identified influenza virus with other respiratory manifestations; B96.3 Hemophilus influenzae [H. influenzae] as the cause of diseases classified elsewhere; I10 Essential (primary) hypertension; E11.65 Type 2 diabetes mellitus with hyperglycemia; E78.5 Hyperlipidemia, unspecified; E66.01 Morbid (severe) obesity due to excess calories; Z68.33 Body mass index [BMI] 33.0-33.9, adult; Z66 Do not resuscitate; Z79.84 Long term (current) use of oral hypoglycemic drugs; Z79.899 Other long term (current) drug therapy
CPT/HCPCS: 36415; 36600; 71045; 71275; 80048; 80053; 82803; 82962; 83605; 84145; 84484; 85025; 85379; 87040; 87070; 87077; 87205; 87426; 93005; 94002; 94003; 94640; 94660; 94762; 99251; 99285; J7040; J7050; Q9967; A4216; G0463; J0248; J1940